=== PATIENT | female | born 1965 | race Caucasian/White ===

== ENCOUNTER 2016-07-13 10:24 | Emergency (ER) | payer MEDICAID ==
[~2016-07-13] VITALS: Ht 157.5 cm; Wt 65.3 kg
[~2016-07-13 10:24] MED LIST: ADVA250A INH; BISO5TAB5 PO; CLAR10CA3 PO; OMEP40CA2 PO; PAXI20TA PO; PRAV10TA PO; SPIRCAP INH; ZITHTAB PO
[2016-07-13 10:37] VITALS: BP 147/87; PULSE 92; RESP 18; TEMP 98.2; O2SAT 99
--- NOTE | 2016-07-13 11:10 | PD ---
HPI Chief Complaint: Musculoskeletal Complaint Time Seen by Provider: 11:08 Travel History International Travel<30 days: No Contact w/Intl Traveler<30days: No Traveled to known affect area: No History of Present Illness HPI 50-year-old female with PMH of oral cancer, status post radical neck dissection presents to the ED for evaluation of 2 month history of right-sided lower back pain, radiating into the buttocks and down the outside of the right leg. She denies numbness, tingling, weakness, limitations to range of motion, saddle anesthesia, dysuria, hematuria, increased urinary urgency, urinary or fecal incontinence. Patient states she has a history of sciatica and this pain is the same. She states she was prescribed muscle relaxers and anti- inflammatories by her previous primary care provider. She endorses allergies to Avelox, penicillin, tramadol. PFSH Past Medical History Cancer: Yes (TONGUE) Cardiovascular Problems: Yes Diminished Hearing: No Hypertension: Yes Respiratory: Yes (LEFT LUNG SX DUE TO ASPIRATION PNEUMONIA) Pancreatitis: Yes Pneumonia: Yes (D/T ASPIRATION ) Tetanus Vaccination: Unknown ?: Not Past Surgical History Cholecystectomy: Yes Hysterectomy: Yes Other Surgery: Yes (PARTIAL TONGUE REMOVAL) Social History Alcohol Use: No Tobacco Use: No (QUIT 2011) Substance Use: No Allergies-Medications (Allergen,Severity, Reaction): Coded Allergies: Avelox (Verified Allergy, Severe, Shortness of Breath, 07/13/16) Penicillin (Verified Allergy, Severe, SHORT OF BREATH, 07/13/16) Tramadol (Verified Allergy, Severe, SHORT OF BREATH, 07/13/16) Reported Meds & Prescriptions Reported Meds & Active Scripts Active Robaxin (Methocarbamol) 750 Mg Tab 750 Mg PO QID Ibuprofen 600 Mg Tab 600 Mg PO Q8HR Reported Pravastatin 10 Mg Tab 10 Mg PO HS Bisoprolol (Bisoprolol Fumarate) 5 Mg Tab 2.5 Mg PO DAILY Claritin (Loratadine) 10 Mg Cap 10 Mg PO DAILY Advair Diskus Inh (Fluticasone-Salmeterol Inh) 250-50 Mcg/Blist Aer 1 Puff INH BID Rinse mouth after use. Spiriva Handihaler (Tiotropium Inh) 18 Mcg Cap 18 Mcg INH DAILY 1 capsule = 18 mcg Omeprazole 40 Mg Cap 40 Mg PO DAILY Paxil (Paroxetine HCl) 20 Mg Tab 20 Mg PO DAILY Review of Systems Except as stated in HPI: all other systems reviewed are Neg Physical Exam Narrative GENERAL: Well-nourished, well-developed white female in no acute distress. SKIN: Warm and dry. HEAD: Minor deformities of the left-sided jaw and neck secondary to radical neck dissection. EYES: No scleral icterus. No injection or drainage. NECK: Supple, trachea midline. No JVD or lymphadenopathy. CARDIOVASCULAR: Regular rate and rhythm without murmurs, gallops, or rubs. RESPIRATORY: Breath sounds equal bilaterally. No accessory muscle use. GASTROINTESTINAL: Abdomen soft, non-tender, nondistended. MUSCULOSKELETAL: No cyanosis, or edema. Straight leg raise positive on the right. NEUROLOGICAL: Awake and alert. Cranial nerves II through XII intact. Motor and sensory grossly within normal limits. 5/5 muscle strength to plantarflexion, dorsiflexion, knee flexion and hip flexion. Slurred speech 2/to radical neck dissection. BACK: No obvious deformity. No CVA tenderness. Mild midline tenderness to palpation of the lumbar area, including the right-sided paraspinal musculature, right buttocks, right anterior lateral hip. Data Data Last Documented VS Vital Signs Date Time Temp Pulse Resp B/P Pulse Ox O2 Delivery O2 Flow Rate FiO2 07/13/16 10:37 98.2 92 18 147/87 99 Orders Ketorolac Inj (Toradol Inj) (07/13/16 11:30) MDM Medical Decision Making Medical Screen Exam Complete: Yes Emergency Medical Condition: Yes Differential Diagnosis Low back pain versus radiculopathy versus sciatica versus other Narrative Course 50-year-old female with PMH of oral cancer, status post radical neck dissection presents to the ED for evaluation of 2 month history of right-sided lower back pain, radiating into the buttocks and down the outside of the right leg. She denies numbness, tingling, weakness, limitations to range of motion, saddle anesthesia, dysuria, hematuria, increased urinary urgency, urinary or fecal incontinence. Patient states she has a history of sciatica and this pain is the same. Vitals reviewed. Physical exam reveals a well-appearing white female in no acute distress. Mild midline lumbar tenderness to palpation, worse in the right paraspinal musculature, buttocks and right hip. Strength 5/ 5 in bilateral lower extremities. Straight leg raise elicits pain on the right. Signs and symptoms consistent with sciatica. Patient was administered IM Toradol. She was prescribed a short course of anti-inflammatories and muscle relaxers. She is instructed to return to normal, gentle activity as tolerated, follow-up with primary care provider. She indicated understanding of the instructions and is amenable to plan of care. This patient is stable and discharged home. Diagnosis Primary Impression: Right-sided low back pain with sciatica Qualified Code: M54.41 - Chronic right-sided low back pain with right-sided sciatica Referrals: Primary Care Physician Patient Instructions: General Instructions, Sciatica (ED) Additional Instructions: Rest, hydrate. A mixture of rest and activity is best for back pain. Resume normal, gentle activities as tolerated. No strenuous physical activities for the next few days Begin taking ibuprofen as prescribed TOMORROW. Take ibuprofen and Robaxin as prescribed. Do not drive while taking Robaxin. Applying ice or heat to areas with sore muscles may help to improve your patient. Do not apply ice/ heat for longer than 20 m/h. Gentle massage and gentle stretching of sore areas may also help to improve your symptoms. Follow-up with your primary care provider this week Return to the ED for any urgent or emergent medical condition. Med/Other Pt SpecificInfo: Prescription(s) given Scripts Methocarbamol (Robaxin)750 Mg [id number] Mg PO QID #12 TAB Ref 0 Prov:Janeth Alanis DO 07/13/16 Ibuprofen 600 Mg [id number] Mg PO Q8HR #15 TAB Ref 0 Prov:Janeth Alanis DO 07/13/16 Disposition: 01 DISCHARGE HOME Condition: Stable Susan Lazaro Jul 13, 2016 11:10
[2016-07-13] MEDS ORDERED: IBUP-232 PO (11:24)
[2016-07-13] MEDS ORDERED: ROBA750T PO (11:25)
[2016-07-13] MEDS ORDERED: KETOROLAC TROMETHAMINE 60 MG/2 ML (IM) VIAL IM ONE (11:30)
[2016-07-31] MEDS ORDERED: SPIRCAP INH (10:49)
[2016-07-31] MEDS ORDERED: CLON0.5T PO (10:49)
[2016-07-31] MEDS ORDERED: VENTAER INH (10:49)
[2016-07-31] MEDS ORDERED: PRAM0.5T PO (10:49)
[2016-07-31] MEDS ORDERED: CYCL1TAB29 PO (12:05)
[2016-07-31] MEDS ORDERED: PROT40TA PO (12:05)
[2016-08-21] MEDS ORDERED: VENTAER INH (08:31)
[2016-08-21] MEDS ORDERED: PRAM0.5T PO (08:31)
[2016-08-21] MEDS ORDERED: ADVA250A INH (08:31)
[2016-08-21] MEDS ORDERED: SPIRCAP INH (08:31)
[2016-08-21] MEDS ORDERED: CLAR10CA3 PO (08:31)
[2016-08-21] MEDS ORDERED: PRAV10TA PO (08:50)
[2016-10-03] MEDS ORDERED: PROT40TA PO (09:18)
[2016-10-03] MEDS ORDERED: PRAM0.5T PO (09:18)
[2016-10-03] MEDS ORDERED: CYCL1TAB29 PO (09:18)
== END 2016-07-13 11:38 | disposition home or self-care (01) ==
LOC: PHEFT 10:24
DX: M54.41 Lumbago with sciatica, right side (principal); Z87.891 Personal history of nicotine dependence
CPT/HCPCS: 96372; 99283; J1885

== ENCOUNTER 2016-12-18 09:23 | Emergency (ER) | payer MEDICAID ==
[~2016-12-18] VITALS: Ht 157.5 cm; Wt 55.7 kg
[~2016-12-18 09:23] MED LIST changes: +CLON0.5T PO; +CYCL1TAB29 PO; +IBUP-232 PO; -PAXI20TA PO; +PRAM0.5T PO; +PROT40TA PO; +VENTAER INH; -ZITHTAB PO
[2016-12-18 09:28] VITALS: BP 109/67; PULSE 95; RESP 18; TEMP 97.7; O2SAT 99
[2016-12-18] MEDS ORDERED: SODIUM CHLORIDE 0.9% FLUSH 10 ML FLUSH IVF PRN (10:00)
[2016-12-18 10:20] LABS: AUTOMATED NEUTROPHIL # 9.2 TH/MM3 (1.8-7.7); BASOPHIL # 0.3 TH/MM3 (0-0.2); BASOPHIL % 2.5 % (0.0-2.0); EOSINOPHIL # 0.1 TH/MM3 (0-0.4); EOSINOPHIL % 0.7 % (0.0-4.0); HEMATOCRIT 33.7 % (35.0-46.0); HEMO FLAGS DIFF FINAL; LYMPH % 16.3 % (9.0-44.0); MEAN CELL VOLUME 86.8 FL (80.0-100.0); MEAN CORPUSCULAR HEMOGLOBIN 28.9 PG (27.0-34.0); MEAN CORPUSCULAR HGB CONC 33.3 % (32.0-36.0); MONO % 3.1 % (0.0-8.0); NEUT % 77.4 % (16.0-70.0); PLATELET COUNT 436 TH/MM3 (150-450); RED BLOOD COUNT 3.89 MIL/MM3 (4.00-5.30); RED CELL DISTRIBUTION WIDTH 14.2 % (11.6-17.2)
--- NOTE | 2016-12-18 10:21 | PD ---
HPI Chief Complaint: Cold / Flu Symptoms Time Seen by Provider: 09:30 Travel History International Travel<30 days: No Contact w/Intl Traveler<30days: No Traveled to known affect area: No History of Present Illness HPI 51yo F with PMH of tongue CA s/p resection and chemo free now presents to the ED to make sure she does not have pneumonia. Pt states she has been coughing for 1 month now with nasal congestion. However, started feeling sharp pain with inspiration diffusely in mid chest area. States she feels sob walking just 1 block which is new. Tactile fever today. Denies any chest pain, sob, n/v, abdominal pain, focal weakness or numbness. PFSH Past Medical History Cancer: Yes (TONGUE) Cardiovascular Problems: Yes Diminished Hearing: No Hypertension: Yes Respiratory: Yes (LEFT LUNG SX DUE TO ASPIRATION PNEUMONIA) Pancreatitis: Yes Pneumonia: Yes (D/T ASPIRATION ) Influenza Vaccination: No ?: Not Past Surgical History Cholecystectomy: Yes Hysterectomy: Yes Other Surgery: Yes (PARTIAL TONGUE REMOVAL) Social History Alcohol Use: No Tobacco Use: No (QUIT 2011) Substance Use: No Allergies-Medications (Allergen,Severity, Reaction): Coded Allergies: Avelox (Verified Allergy, Severe, Shortness of Breath, 12/18/16) Penicillin (Verified Allergy, Severe, SHORT OF BREATH, 12/18/16) Tramadol (Verified Allergy, Severe, SHORT OF BREATH, 12/18/16) Reported Meds & Prescriptions Reported Meds & Active Scripts Active Zithromax Z-Hung (Azithromycin) 250 Mg Dspk 250 Mg PO DIRECTED 500 MG (2 tabs) day 1, then 1 tab days 2-5. Ventolin Hfa 18 GM Inh (Albuterol Sulfate) 90 Mcg/Act Aer 2 Puff INH Q4H PRN Pramipexole (Pramipexole Dihydrochloride) 0.5 Mg Tab 1 Mg PO HS Protonix (Pantoprazole Sodium) 40 Mg Tab 40 Mg PO DAILY Pravastatin 10 Mg Tab 10 Mg PO HS Claritin (Loratadine) 10 Mg Cap 10 Mg PO DAILY Ventolin Hfa 18 GM Inh (Albuterol Sulfate) 90 Mcg/Act Aer 2 Puff INH Q4-6H PRN Advair Diskus Inh (Fluticasone-Salmeterol Inh) 250-50 Mcg/Blist Aer 1 Puff INH BID Rinse mouth after use. Spiriva Handihaler (Tiotropium Inh) 18 Mcg Cap 18 Mcg INH DAILY 1 capsule = 18 mcg Ibuprofen 600 Mg Tab 600 Mg PO Q8HR Reported Clonazepam 0.5 Mg Tab 0.5 Mg PO QID Bisoprolol (Bisoprolol Fumarate) 5 Mg Tab 2.5 Mg PO DAILY Review of Systems Except as stated in HPI: all other systems reviewed are Neg Physical Exam Narrative GENERAL: 51yo F not in distress. SKIN: Focused skin assessment warm/dry. HEAD: Atraumatic. Normocephalic. CARDIOVASCULAR: Regular rate and rhythm. No murmur appreciated. RESPIRATORY: No accessory muscle use. Clear to auscultation. Breath sounds equal bilaterally. GASTROINTESTINAL: Abdomen soft, non-tender, nondistended. MUSCULOSKELETAL: No obvious deformities. No clubbing. No cyanosis. No edema. NEUROLOGICAL: Awake and alert. No obvious cranial nerve deficits. Motor grossly within normal limits. Abnormal speech secondary to tongue surgery. PSYCHIATRIC: Appropriate mood and affect; insight and judgment normal. Data Data Last Documented VS Vital Signs Date Time Temp Pulse Resp B/P Pulse Ox O2 Delivery O2 Flow Rate FiO2 12/18/16 10:23 98 Room Air 12/18/16 10:23 90 18 104/78 12/18/16 09:28 97.7 Orders Complete Blood Count With Diff (12/18/16 09:57) Basic Metabolic Panel (Bmp) (12/18/16 09:57) B-Type Natriuretic Peptide (12/18/16 09:57) D-Dimer (12/18/16 09:57) Act Partial Throm Time (Ptt) (12/18/16 09:57) Prothrombin Time / Inr (Pt) (12/18/16 09:57) Troponin I (12/18/16 09:57) Iv Access Insert/Monitor (12/18/16 09:57) Electrocardiogram (12/18/16 09:57) Ecg Monitoring (12/18/16 09:57) Oximetry (12/18/16 09:57) Oxygen Administration (12/18/16 09:57) Chest, Single Ap (12/18/16 09:57) Sodium Chloride 0.9% Flush (Ns Flush) (12/18/16 10:00) Guaifen-Cod 200-20 Mg/10ml Liq (Robituss (12/18/16 11:15) Ibuprofen (Motrin) (12/18/16 11:15) Albuterol-Ipratropium Neb (Duoneb Neb) (12/18/16 11:15) Labs Laboratory Tests Test 12/18/16 10:15 White Blood Count 12.0 TH/MM3 Red Blood Count 3.89 MIL/MM3 Hemoglobin 11.2 GM/DL Hematocrit 33.7 % Mean Corpuscular Volume 86.8 FL Mean Corpuscular Hemoglobin 28.9 PG Mean Corpuscular Hemoglobin 33.3 % Concent Red Cell Distribution Width 14.2 % Platelet Count 436 TH/MM3 Mean Platelet Volume 5.7 FL Neutrophils (%) (Auto) 77.4 % Lymphocytes (%) (Auto) 16.3 % Monocytes (%) (Auto) 3.1 % Eosinophils (%) (Auto) 0.7 % Basophils (%) (Auto) 2.5 % Neutrophils # (Auto) 9.2 TH/MM3 Lymphocytes # (Auto) 2.0 TH/MM3 Monocytes # (Auto) 0.4 TH/MM3 Eosinophils # (Auto) 0.1 TH/MM3 Basophils # (Auto) 0.3 TH/MM3 CBC Comment DIFF FINAL Differential Comment Prothrombin Time 11.2 SEC Prothromb Time International 1.0 RATIO Ratio Activated Partial 35.9 SEC Thromboplast Time D-Dimer Quantitative (PE/DVT) 0.45 MG/L FEU Sodium Level 129 MEQ/L Potassium Level 3.9 MEQ/L Chloride Level 97 MEQ/L Carbon Dioxide Level 23.2 MEQ/L Anion Gap 9 MEQ/L Blood Urea Nitrogen 16 MG/DL Creatinine 0.68 MG/DL Estimat Glomerular Filtration 91 ML/MIN Rate Random Glucose 78 MG/DL Calcium Level 8.8 MG/DL Troponin I LESS THAN 0.02 NG/ML B-Type Natriuretic Peptide 20 PG/ML MDM Medical Decision Making Medical Screen Exam Complete: Yes Emergency Medical Condition: Yes Interpretation(s) EKG: NSR 88bpm. Normal axis. No ST segment elevation or depression. Differential Diagnosis URI vs. bronchitis vs. Pneumonia vs. PE vs. ACS Narrative Course 51yo F with cough for 1 month here with sharp pain diffusely on chest with inspiration and coughing. Pt is well appearing and saturating at 100% on RA. Pt is worry about pneumonia because she had tongue cancer and said she gets that easily. Symptoms more consistent with a URI vs. bronchitis. Labs reviewed , WBC 12. Mild hyponatremia at 129, no prior to compare to. Pt states her sodium is always low. Troponin negative. I do not believe the chest pain is cardiac. BNP 20. PTT mildly elevated. D-dimer negative at 0.45. CXR showed no acute disease. Pt given guaifen-codene, ibuprofen and duoneb and reevaluated at bedside. States she feels better and denies any chest pain or sob now. States her cough also improved. She is well appearing and wants to go home. Return precautions given. Diagnosis Primary Impression: URI (upper respiratory infection) Qualified Code: J06.9 - Upper respiratory tract infection, unspecified type Patient Instructions: General Instructions Departure Forms: Tests/Procedures Additional Instructions: Please follow up with your PMD in 3-7 days. Return to the ED if symptoms worsen. Med/Other Pt SpecificInfo: Prescription(s) given Scripts Azithromycin (Zithromax Z-Hung)250 Mg Ptxm080 Mg PO DIRECTED #1 DSPK Ref 0 500 MG (2 tabs) day 1, then 1 tab days 2-5. Prov:Janeth Alanis DO 12/18/16 Albuterol 18 GM Inh (Ventolin Hfa 18 GM Inh)90 Mcg/Act Aer2 Puff INH Q4H PRN ( SHORTNESS OF BREATH) #1 INHALER Ref 0 Prov:Janeth Alanis DO 12/18/16 Disposition: 01 DISCHARGE HOME Condition: Stable Janeth Alanis DO Dec 18, 2016 10:21
[2016-12-18 10:23] VITALS: BP 104/78; PULSE 90; RESP 18; O2SAT 98
[2016-12-18 10:30] LABS: CHLORIDE 97 MEQ/L (98-107); POTASSIUM 3.9 MEQ/L (3.5-5.1); SODIUM (NA) 129 MEQ/L (136-145)
[2016-12-18 10:32] LABS: ANION GAP 9 MEQ/L (5-15); BICARBONATE 23.2 MEQ/L (21.0-32.0)
[2016-12-18 10:33] LABS: BLOOD UREA NITROGEN 16 MG/DL (7-18)
[2016-12-18 10:36] LABS: APTT (PATIENT) 35.9 SEC (24.3-30.1); GLOMERULAR FILTRATION RATE 91 ML/MIN (>89); PROTHROMBIN TIME - PATIENT 11.2 SEC (9.8-11.6)
--- NOTE | 2016-12-18 11:08 | RADRPT ---
EXAM DATE/TIME: 12/18/2016 10:03 [facility] COMPARISON: CHEST SINGLE AP, May 10, 2016, 8:29. INDICATIONS : Short of breath MEDICAL HISTORY : Carcinoma, oral cavity. Hypertension Aspiration pneumonia SURGICAL HISTORY : Left lung surgery post pneumonia ENCOUNTER: Initial ACUITY: 1 day PAIN SCORE: 0/10 LOCATION: Bilateral chest FINDINGS: A single view of the chest demonstrates the lungs to be symmetrically aerated without evidence of mas s, infiltrate or effusion. The cardiomediastinal contours are unremarkable. Surgical clips are seen on the left. Osseous structures are intact. CONCLUSION: No acute disease. Sawyer Hernandez MD FACR on December 18, 2016 at 11:06 Board Certified Radiologist. This report was verified electronically.
[2016-12-18] MEDS ORDERED: RESP: ALBUTEROL 2.5 MG/IPRATROPIUM 0.5 MG NEB (SCH) INH ONE (11:15)
[2016-12-18] MEDS ORDERED: IBUPROFEN 400 MG TAB PO ONE (11:15)
[2016-12-18] MEDS ORDERED: guaiFENesin/CODEINE SYRUP 200 MG/20 MG/10 ML CUP PO ONE (11:15)
[2016-12-18] MEDS ORDERED: ZITHTAB PO (12:16)
[2016-12-18] MEDS ORDERED: VENTAER INH (12:16)
[2016-12-18 12:19] VITALS: BP 105/58; PULSE 88; RESP 18; O2SAT 99
--- NOTE | 2016-12-18 16:16 | EKG ---
Date Performed: 12/18/2016 Time Performed: 10:15:09 PTAGE: 51 years EKG: Sinus rhythm NORMAL ECG NO PREVIOUS TRACING DOCTOR: Moose Leija Interpretating Date/Time 12/18/2016 16:14:28
[2016-12-21] MEDS ORDERED: SPIRCAP INH (11:42)
[2016-12-21] MEDS ORDERED: ADVA250A INH (11:42)
== END 2016-12-18 12:39 | disposition home or self-care (01) ==
LOC: PHED 09:23
DX: J06.9 Acute upper respiratory infection, unspecified (principal); R06.02 Shortness of breath; I10 Essential (primary) hypertension; Z85.810 Personal history of malignant neoplasm of tongue; Z87.891 Personal history of nicotine dependence
CPT/HCPCS: 71010; 80048; 83880; 84484; 85025; 85379; 85610; 85730; 93005; 94664

== ENCOUNTER 2017-01-25 15:21 | Emergency (ER) | payer MEDICAID ==
[~2017-01-25 15:21] MED LIST changes: -CYCL1TAB29 PO; -OMEP40CA2 PO; +ZITHTAB PO
[2017-01-25 15:24] VITALS: BP 132/77; PULSE 105; RESP 20; TEMP 97.8; O2SAT 97
--- NOTE | 2017-01-25 16:48 | PD ---
HPI Chief Complaint: ENT Complaint Time Seen by Provider: 16:24 Travel History International Travel<30 days: No Contact w/Intl Traveler<30days: No Traveled to known affect area: No History of Present Illness HPI 51yo F with PMH of tongue cancer s/p resection and cancer free for 8 years was sent by her ENT Dr. Dawn for further evaluation of dysphagia and obtain CT soft tissue neck. Pt has not been able to eat solid food for 3 months and was evaluated by ENT on 01/16/17 and had barium swallow done what showed that there was blockage and recommended CT soft tissue neck. I discussed with supervisor contact and service clerks physician Dr. Melchor and pt never followed up and called and since they were concern about the PO intake, pt was told to come to the ED. Able to drink liquids. Denies any fever, chest pain, sob, n/v, abdominal pain. States she would try to eat and food would go to her mid throat and she would vomit. Pt was not able to tolerate the scope and vomited every time they tried to look. PFSH Past Medical History Cancer: Yes (TONGUE) Cardiovascular Problems: Yes Diminished Hearing: No Hypertension: Yes Respiratory: Yes (LEFT LUNG SX DUE TO ASPIRATION PNEUMONIA) Pancreatitis: Yes Pneumonia: Yes (D/T ASPIRATION ) ?: Not Past Surgical History Cholecystectomy: Yes Hysterectomy: Yes Other Surgery: Yes (PARTIAL TONGUE REMOVAL) Social History Alcohol Use: No Tobacco Use: No (QUIT 2011) Substance Use: No Allergies-Medications (Allergen,Severity, Reaction): Coded Allergies: moxifloxacin (Unverified Allergy, Severe, Shortness of Breath, 12/26/16) penicillin G (Unverified Allergy, Severe, SHORT OF BREATH, 12/26/16) tramadol (Unverified Allergy, Severe, SHORT OF BREATH, 12/26/16) Reported Meds & Prescriptions Reported Meds & Active Scripts Active Spiriva Handihaler (Tiotropium Inh) 18 Mcg Cap 18 Mcg INH DAILY 1 capsule = 18 mcg Pramipexole (Pramipexole Dihydrochloride) 0.5 Mg Tab 1 Mg PO HS Protonix (Pantoprazole Sodium) 40 Mg Tab 40 Mg PO DAILY Review of Systems Except as stated in HPI: all other systems reviewed are Neg Physical Exam Narrative GENERAL: 51yo F not in distress. SKIN: Focused skin assessment warm/dry. HEAD: Atraumatic. Normocephalic. EYES: Pupils equal and round. No scleral icterus. No injection or drainage. ENT: No nasal bleeding or discharge. Mucous membranes pink and moist. Throat: Uvula midline. Patent airway. Left side of tongue resected. NECK: Trachea midline. No JVD. CARDIOVASCULAR: Regular rate and rhythm. No murmur appreciated. RESPIRATORY: No accessory muscle use. Clear to auscultation. Breath sounds equal bilaterally. GASTROINTESTINAL: Abdomen soft, non-tender, nondistended. MUSCULOSKELETAL: No obvious deformities. No clubbing. No cyanosis. No edema. NEUROLOGICAL: Awake and alert. No obvious cranial nerve deficits. Motor grossly within normal limits. Normal speech. PSYCHIATRIC: Appropriate mood and affect; insight and judgment normal. Data Data Last Documented VS Vital Signs Date Time Temp Pulse Resp B/P (MAP) Pulse Ox O2 Delivery O2 Flow Rate FiO2 01/25/17 15:24 97.8 105 20 132/77 (95) 97 Orders Orders Complete Blood Count With Diff (01/25/17 16:36) Basic Metabolic Panel (Bmp) (01/25/17 16:36) Ct Soft Tiss Neck W Iv Cont (01/25/17 ) Iohexol 350 Inj (Omnipaque 350 Inj) (01/25/17 17:55) Labs Laboratory Tests Test 01/25/17 16:55 White Blood Count 6.8 TH/MM3 Red Blood Count 4.12 MIL/MM3 Hemoglobin 12.2 GM/DL Hematocrit 36.6 % Mean Corpuscular Volume 88.7 FL Mean Corpuscular Hemoglobin 29.6 PG Mean Corpuscular Hemoglobin Concent 33.4 % Red Cell Distribution Width 14.6 % Platelet Count 366 TH/MM3 Mean Platelet Volume 6.5 FL Neutrophils (%) (Auto) 54.5 % Lymphocytes (%) (Auto) 37.2 % Monocytes (%) (Auto) 5.1 % Eosinophils (%) (Auto) 2.0 % Basophils (%) (Auto) 1.2 % Neutrophils # (Auto) 3.8 TH/MM3 Lymphocytes # (Auto) 2.5 TH/MM3 Monocytes # (Auto) 0.3 TH/MM3 Eosinophils # (Auto) 0.1 TH/MM3 Basophils # (Auto) 0.1 TH/MM3 CBC Comment DIFF FINAL Differential Comment Blood Urea Nitrogen 7 MG/DL Creatinine 0.87 MG/DL Random Glucose 72 MG/DL Calcium Level 8.8 MG/DL Sodium Level 132 MEQ/L Potassium Level 3.5 MEQ/L Chloride Level 97 MEQ/L Carbon Dioxide Level 26.2 MEQ/L Anion Gap 9 MEQ/L Estimat Glomerular Filtration Rate 68 ML/MIN MDM Medical Decision Making Medical Screen Exam Complete: Yes Emergency Medical Condition: Yes Interpretation(s) Laboratory Tests Test 01/25/17 16:55 White Blood Count 6.8 TH/MM3 (4.0-11.0) Red Blood Count 4.12 MIL/MM3 (4.00-5.30) Hemoglobin 12.2 GM/DL (11.6-15.3) Hematocrit 36.6 % (35.0-46.0) Mean Corpuscular Volume 88.7 FL (80.0-100.0) Mean Corpuscular Hemoglobin 29.6 PG (27.0-34.0) Mean Corpuscular Hemoglobin Concent 33.4 % (32.0-36.0) Red Cell Distribution Width 14.6 % (11.6-17.2) Platelet Count 366 TH/MM3 (150-450) Mean Platelet Volume 6.5 FL (7.0-11.0) Neutrophils (%) (Auto) 54.5 % (16.0-70.0) Lymphocytes (%) (Auto) 37.2 % (9.0-44.0) Monocytes (%) (Auto) 5.1 % (0.0-8.0) Eosinophils (%) (Auto) 2.0 % (0.0-4.0) Basophils (%) (Auto) 1.2 % (0.0-2.0) Neutrophils # (Auto) 3.8 TH/MM3 (1.8-7.7) Lymphocytes # (Auto) 2.5 TH/MM3 (1.0-4.8) Monocytes # (Auto) 0.3 TH/MM3 (0-0.9) Eosinophils # (Auto) 0.1 TH/MM3 (0-0.4) Basophils # (Auto) 0.1 TH/MM3 (0-0.2) CBC Comment DIFF FINAL Differential Comment Blood Urea Nitrogen 7 MG/DL (7-18) Creatinine 0.87 MG/DL (0.50-1.00) Random Glucose 72 MG/DL (74-106) Calcium Level 8.8 MG/DL (8.5-10.1) Sodium Level 132 MEQ/L (136-145) Potassium Level 3.5 MEQ/L (3.5-5.1) Chloride Level 97 MEQ/L (98-107) Carbon Dioxide Level 26.2 MEQ/L (21.0-32.0) Anion Gap 9 MEQ/L (5-15) Estimat Glomerular Filtration Rate 68 ML/MIN (>89) Last Impressions Neck CT 01/25/17 0000 Signed Impressions: Service Date/Time: January 17:47 - CONCLUSION: 1. Lobulated mass of the tongue. Please see above. 2. Posterior pharynx and hypopharynx are within normal limits. No obstructions to swallowing are demonstrated. The esophagus does appear somewhat patulous. 3. No pathologic appearing lymphadenopathy. I believe a previous jugulodigastric lymph node dissection on the left. Carlos Meyer MD Differential Diagnosis Neck mass vs. achalasia vs. esophageal stricture Narrative Course 51yo F with history of tongue CA s/p resection here with difficulty eating solid food. Labs reviewed, no leukocytosis. BMP showed mild hyponatremia at 132. Glucose mildly decreased at 72. Pt given juice and tolerating PO liquids. CT soft tissue neck showed lobulated mass of tongue. Posterior pharynx and hypopharynx are within normal limits. No obstruction to swallowing are demonstrated. Esophagus does appear somewhat patulous. Pt is well appearing and has an ENT follow up. Since pt is tolerating PO and no mass seen on CT, will have pt follow up with ENT and possible GI as an outpatient. Pt given a copy of the CT results. Return precautions given. Diagnosis Primary Impression: Dysphagia Qualified Codes: R13.10 - Dysphagia, unspecified Referrals: Ed Berg MD call for appointment Dysphagia Patient Instructions: General Instructions Departure Forms: Tests/Procedures Additional Instructions: Please follow up with your ENT physician or GI as an outpatient for further evaluation of your dysphagia. Return to the ED if symptoms worsen. Med/Other Pt SpecificInfo: No Change to Meds Disposition: 01 DISCHARGE HOME Condition: Stable Janeth Alanis DO Jan 25, 2017 16:48
[2017-01-25 17:16] LABS: AUTOMATED NEUTROPHIL # 3.8 TH/MM3 (1.8-7.7); BASOPHIL # 0.1 TH/MM3 (0-0.2); BASOPHIL % 1.2 % (0.0-2.0); EOSINOPHIL # 0.1 TH/MM3 (0-0.4); HEMATOCRIT 36.6 % (35.0-46.0); HEMO FLAGS DIFF FINAL; LYMPH % 37.2 % (9.0-44.0); LYMPHOCYTE # 2.5 TH/MM3 (1.0-4.8); MEAN CELL VOLUME 88.7 FL (80.0-100.0); MEAN CORPUSCULAR HEMOGLOBIN 29.6 PG (27.0-34.0); MEAN CORPUSCULAR HGB CONC 33.4 % (32.0-36.0); MONO % 5.1 % (0.0-8.0); NEUT % 54.5 % (16.0-70.0); PLATELET COUNT 366 TH/MM3 (150-450); RED BLOOD COUNT 4.12 MIL/MM3 (4.00-5.30); RED CELL DISTRIBUTION WIDTH 14.6 % (11.6-17.2); WHITE BLOOD COUNT 6.8 TH/MM3 (4.0-11.0)
[2017-01-25 17:34] LABS: POTASSIUM 3.5 MEQ/L (3.5-5.1)
[2017-01-25 17:37] LABS: BICARBONATE 26.2 MEQ/L (21.0-32.0)
[2017-01-25] MEDS ORDERED: IOHEXOL 350 MG/ML 10 ML VIAL (for RAD DIAG) IVCONTRAST ONE (17:55)
--- NOTE | 2017-01-25 18:13 | RADRPT ---
EXAM DATE/TIME: 01/25/2017 17:47 [facility] COMPARISON: No previous studies available for comparison. INDICATIONS : Unable to eat solid foods x 3 months. Evaluate for mass. IV CONTRAST: 60 cc Omnipaque 350 (iohexol) IV RADIATION DOSE: 10.17 CTDIvol (mGy) MEDICAL HISTORY : Carcinoma, tongue. Seizures. Hypertension. SURGICAL HISTORY : Cholecystectomy. Hysterectomy.Tongue cancer resection. Tracheostomy. ENCOUNTER: Initial ACUITY: 3 months PAIN SCALE: 0/10 LOCATION: neck TECHNIQUE: Volumetric scanning of the neck was performed. Using automated exposure control and adjustment of th e mA and/or kV according to patient size, radiation dose was kept as low as reasonably achievable to obtain optimal diagnostic quality images. DICOM format image data is available electronically for r eview and comparison. FINDINGS: NASOPHARYNX: The nasopharyngeal airway has a normal configuration. No mucosal thickening or mass is seen. OROPHARYNX: Apparent previous partial resection of the tongue. There is a lobulated mass along the superior von n of the tongue that measures approximately 2.1 x 3.9 cm in size. Exactly what portion of this is huma or and residual tongue is uncertain but please correlate with direct inspection. LARYNX: The supraglottic, glottic, and infraglottic structures are intact. PARAPHARYNGEAL: The parapharyngeal space is intact. SALIVARY GLANDS: The parotid and submandibular glands are intact. LYMPH NODES: No enlarged or necrotic-appearing nodes. Apparent previous left neck dissection. THYROID: Homogeneous enhancement without evidence of nodule. BONES: Unremarkable. CONCLUSION: 1. Lobulated mass of the tongue. Please see above. 2. Posterior pharynx and hypopharynx are within normal limits. No obstructions to swallowing are demo nstrated. The esophagus does appear somewhat patulous. 3. No pathologic appearing lymphadenopathy. I believe a previous jugulodigastric lymph node dissectio n on the left. Carlos Meyer MD on January 25, 2017 at 18:08 Board Certified Radiologist. This report was verified electronically.
[2017-01-25 19:00] VITALS: BP 115/82
[2017-02-19] MEDS ORDERED: INFL1INJ55 I-DERMAL (09:03)
== END 2017-01-25 19:16 | disposition home or self-care (01) ==
LOC: PHED 15:21
DX: R13.10 Dysphagia, unspecified (principal); Z85.810 Personal history of malignant neoplasm of tongue; Z87.891 Personal history of nicotine dependence
CPT/HCPCS: 70491; 80048; 85025; 99284; Q9967

== ENCOUNTER 2017-06-05 18:00 | Emergency (ER) | payer MEDICAID ==
[~2017-06-05] VITALS: Ht 157.5 cm; Wt 47.7 kg
[~2017-06-05 18:00] MED LIST changes: -BISO5TAB5 PO; -CLAR10CA3 PO; -CLON0.5T PO; -IBUP-232 PO; +LORA-650 PO; +PANT40TA3 PO; -PRAV10TA PO; -PROT40TA PO; -VENTAER INH; -ZITHTAB PO
[2017-06-05 18:08] VITALS: BP 108/81; PULSE 93; RESP 16; TEMP 97.2; O2SAT 97
[2017-06-05] MEDS ORDERED: PRAM0.5T PO (19:52)
[2017-06-05] MEDS ORDERED: BISO5TAB5 PO (19:52)
[2017-06-05] MEDS ORDERED: ADVA250A INH (19:52)
--- NOTE | 2017-06-05 19:52 | PD ---
HPI . Shortness of breath and nausea Chief Complaint: Respiratory Symptoms Time Seen by Provider: 19:38 Travel History International Travel<30 days: No Contact w/Intl Traveler<30days: No Traveled to known affect area: No History of Present Illness HPI This patient presents with 2 complaints. It seems that her chief complaint is actually nausea secondary to GERD. She reports a long-standing history of GERD she states that she had been on Prilosec for GERD but that her insurance now will not pay for it. She states that the GERD causes nausea and inability to eat. Second complaint is shortness of breath. She reports that she is prone to aspiration pneumonia because of her history of lung cancer. Her shortness of breath is mild with no exacerbating or relieving factors. It has been present for at least 6 months. PFSH Past Medical History Cancer: Yes (TONGUE) Cardiovascular Problems: Yes Diminished Hearing: No Hypertension: Yes Respiratory: Yes (LEFT LUNG SX DUE TO ASPIRATION PNEUMONIA) Pancreatitis: Yes Pneumonia: Yes (D/T ASPIRATION ) Tetanus Vaccination: Unknown Influenza Vaccination: Yes ?: Unknown Past Surgical History Cholecystectomy: Yes Hysterectomy: Yes Other Surgery: Yes (PARTIAL TONGUE REMOVAL, HX CA TO TONGUE) Social History Alcohol Use: Yes (SOCIALLY) Tobacco Use: No (QUIT 2011) Substance Use: Yes (MJ) Allergies-Medications (Allergen,Severity, Reaction): Coded Allergies: moxifloxacin (Unverified Allergy, Severe, Shortness of Breath, 06/05/17) penicillin G (Unverified Allergy, Severe, SHORT OF BREATH, 06/05/17) tramadol (Unverified Allergy, Severe, SHORT OF BREATH, 06/05/17) Reported Meds & Prescriptions Reported Meds & Active Scripts Active Zofran (Ondansetron HCl) 4 Mg Tab 4 Mg PO Q6HR PRN Pantoprazole (Pantoprazole Sodium) 40 Mg Tab 40 Mg PO DAILY Advair Diskus Inh (Fluticasone-Salmeterol Inh) 250-50 Mcg/Blist Aer 1 Puff INH BID Rinse mouth after use. Allergy Relief (Loratadine) 10 Mg Tab 10 Mg PO DAILY Reported Advair Diskus Inh (Fluticasone-Salmeterol Inh) 250-50 Mcg/Blist Aer 1 Puff INH BID Rinse mouth after use. Pramipexole (Pramipexole Dihydrochloride) 0.5 Mg Tab 0.5 Mg PO HS Bisoprolol (Bisoprolol Fumarate) 5 Mg Tab 2.5 Mg PO DAILY Review of Systems Except as stated in HPI: all other systems reviewed are Neg General / Constitutional: No: Fever, Chills Respiratory: Positive: Shortness of Breath Gastrointestinal: Positive: Nausea, Loss of Appetite, Other (GERD) Physical Exam Narrative GENERAL: This is a small woman who is lying on the stretcher in no acute distress. She is a little bit difficult to understand because of her previous resection of her tongue cancer. SKIN: warm/dry. Good color and turgor. HEAD: Normocephalic. Atraumatic. EYES: Pupils equal and round. No scleral icterus. No injection or drainage. ENT: No nasal bleeding or discharge. Mucous membranes pink and moist. NECK: Trachea midline. Full range of motion without pain.. CARDIOVASCULAR: Regular rate and rhythm. Heart sounds normal. RESPIRATORY: No accessory muscle use. Clear to auscultation. Breath sounds equal bilaterally. She had some coarse expiratory wheezing which cleared with coughing. Respiratory rate is 16 and oxygen saturation are 97% on room air. GASTROINTESTINAL: Abdomen soft. Nontender. Bowel sounds present. Nondistended. MUSCULOSKELETAL: No obvious deformities. NEUROLOGICAL: Awake and alert. No obvious cranial nerve deficits. Motor grossly within normal limits. Normal speech. PSYCHIATRIC: Appropriate mood and affect; insight and judgment normal. Data Data Last Documented VS Vital Signs Date Time Temp Pulse Resp B/P (MAP) Pulse Ox O2 Delivery O2 Flow Rate FiO2 06/05/17 19:41 16 Room Air 06/05/17 18:08 97.2 93 108/81 (90) 97 Orders Orders Chest, Pa & Lat (06/05/17 19:42) Ondansetron Odt (Zofran Odt) (06/05/17 20:00) Pantoprazole (Protonix) (06/05/17 20:00) MDM Medical Decision Making Medical Screen Exam Complete: Yes Emergency Medical Condition: Yes Medical Record Reviewed: Yes (medical history is significant for tongue cancer status post resection, chemotherapy and radiation therapy. She has had previous aspiration pneumonia. She has also had previous gallstone pancreatitis.) Differential Diagnosis Differential diagnosis of dyspnea includes but is not limited to congestive heart failure, pneumonia, wheezing, pneumothorax, pulmonary embolism Differential diagnosis includes but is not limited to viral gastroenteritis, food poisoning, bowel obstruction, UTI Narrative Course This patient presents with 2 complaints. It seems to me that her chief complaint is GERD causing nausea which causes inability to eat. Her second concern is shortness of breath with a history of previous aspiration pneumonia. I have ordered Protonix and Zofran for her GERD and nausea. Chest x-ray is pending. The patient's respiratory rate is 16 and oxygen saturation 97% on room air. Chest x-ray shows no acute disease. The chest x-ray was independently viewed by me. The patient will be discharged home with prescriptions for Protonix and Zofran. Diagnosis Primary Impression: GERD (gastroesophageal reflux disease) Qualified Codes: K21.9 - Gastro-esophageal reflux disease without esophagitis Additional Impressions: Nausea Dyspnea Qualified Codes: R06.00 - Dyspnea, unspecified Patient Instructions: Gastroesophageal Reflux Disease (DC), General Instructions Med/Other Pt SpecificInfo: Prescription(s) given Scripts Ondansetron (Zofran) 4 Mg Tab 4 MG PO Q6HR Y for NAUSEA OR VOMITING, #30 TAB 0 Refills Prov: Aleah Esquivel MD 06/05/17 Pantoprazole (Pantoprazole) 40 Mg Tab 40 MG PO DAILY for Reflux, #30 TAB 0 Refills Prov: Aleah Esquivel MD 06/05/17 Disposition: 01 DISCHARGE HOME Condition: Stable Aleah Esquivel MD Jun 05, 2017 19:52
[2017-06-05] MEDS ORDERED: ONDANSETRON ODT 4 MG TAB PO ONE (20:00)
[2017-06-05] MEDS ORDERED: PANTOPRAZOLE SOD 20 MG DELAYED RELEASE TAB PO ONE (20:00)
[2017-06-05] MEDS ORDERED: PANT40TA3 PO (20:03)
[2017-06-05] MEDS ORDERED: ZOFR4TAB PO (20:03)
--- NOTE | 2017-06-05 21:09 | RADRPT ---
EXAM DATE/TIME: 06/05/2017 20:28 [facility] COMPARISON: No previous studies available for comparison. INDICATIONS : Short of breath. MEDICAL HISTORY : Carcinoma, tongue. Seizures. Hypertension. SURGICAL HISTORY : Cholecystectomy. Hysterectomy.Tongue cancer resection. Tracheostomy. ENCOUNTER: Initial ACUITY: 4 - 6 months PAIN SCORE: 0/10 LOCATION: Bilateral chest FINDINGS: PA and lateral views of the chest demonstrate the lungs to be symmetrically aerated without evidence of mass, infiltrate or effusion. The cardiomediastinal contours are unremarkable. Osseous structure s are intact. CONCLUSION: 1. No active disease. Mild scarring at the bases. Shayan Garrett MD on June 05, 2017 at 21:06 Board Certified Radiologist. This report was verified electronically.
== END 2017-06-05 21:27 | disposition home or self-care (01) ==
LOC: PHED 18:00 → PHEFT 21:27
DX: K21.9 Gastro-esophageal reflux disease without esophagitis (principal); I10 Essential (primary) hypertension; Z87.891 Personal history of nicotine dependence
CPT/HCPCS: 71046; 99284

== ENCOUNTER → 2017-10-25 | Outpatient (CLI) | payer MEDICAID ==
[~2017-10-25] MED LIST changes: +BISO5TAB5 PO; -SPIRCAP INH; +ZOFR4TAB PO
--- NOTE | 2017-10-25 10:35 | RADRPT ---
EXAM DATE: 10/25/2017 10:27 AM EDT AGE/SEX: 52 years / Female INDICATIONS: Dysphagia. CLINICAL DATA: This is the patient's initial encounter. Patient reports that signs and symptoms have been present for 2 weeks and indicates a pain score of 0/10. MEDICAL/SURGICAL HISTORY: . Carcinoma, tongue. Seizures. Hypertension. . Tongue cancer resecti on. Tracheostomy. COMPARISON: No prior exams available for comparison. FLUORO TIME: 4.4 IMAGE COUNT: 0 FINDINGS: A modified barium swallow was performed with speech pathology. Patient was given a variety of liquids to swallow. For a full detailed report, see report by the speech pathologist. Significant swallowing dysfunction is identified with poor retraction of the tongue in the oral phase , early spillage into the vallecula and piriform sinuses, poor elevation of the hypopharyngeal struct ures and deep vestibular penetration. Risk for aspiration with thin liquids is suspected. Laryngeal tracheal aspiration was not identified. CONCLUSION: Dysfunctional swallowing mechanism as described. The vestibular penetration without gross aspiration. Electronically signed by: Cliff Zimmerman MD 10/25/2017 10:34 AM EDT
== END ==
LOC: HRAD 09:37
PROVIDERS: ATTEND Family Medicine
DX: R13.10 Dysphagia, unspecified (principal)
CPT/HCPCS: 74230; 92611; G8996; G8997; G8998

== ENCOUNTER 2017-11-06 05:18 | Emergency (ER) | payer MEDICAID ==
[~2017-11-06] VITALS: Ht 157.5 cm; Wt 42.4 kg
[2017-11-06 05:22] VITALS: BP 145/97; PULSE 85; RESP 18; TEMP 98.1; O2SAT 94
[2017-11-06 05:37] VITALS: BP 145/97; PULSE 85; RESP 18; TEMP 98.1; O2SAT 94
[2017-11-06] MEDS ORDERED: ONDANSETRON ODT 4 MG TAB PO ONE (05:45)
--- NOTE | 2017-11-06 05:45 | PD ---
HPI Chief Complaint: Feeding tube irritation Time Seen by Provider: 05:39 Travel History International Travel<30 days: No Contact w/Intl Traveler<30days: No Traveled to known affect area: No History of Present Illness HPI The patient is a 52-year-old female that has had a feeding tube in for 5 days and she has some irritation around the feeding tube. She is due to see the physician, Dr. cMcord at [facility] later today at 5:30 PM. She has some secretions around the feeding tube. The feeding tube is otherwise working well. The patient has squamous cell cancer of the tongue. PFSH Past Medical History Cancer: Yes (TONGUE) Cardiovascular Problems: Yes Diminished Hearing: No Hypertension: Yes Respiratory: Yes (LEFT LUNG SX DUE TO ASPIRATION PNEUMONIA) Pancreatitis: Yes Pneumonia: Yes (D/T ASPIRATION ) Past Surgical History Cholecystectomy: Yes Hysterectomy: Yes Other Surgery: Yes (PARTIAL TONGUE REMOVAL, HX CA TO TONGUE) Social History Alcohol Use: Yes (SOCIALLY) Tobacco Use: No (QUIT 2011) Substance Use: Yes (MJ) Allergies-Medications (Allergen,Severity, Reaction): Coded Allergies: moxifloxacin (Unverified Allergy, Severe, Shortness of Breath, 06/05/17) penicillin G (Unverified Allergy, Severe, SHORT OF BREATH, 06/05/17) tramadol (Unverified Allergy, Severe, SHORT OF BREATH, 06/05/17) Reported Meds & Prescriptions Reported Meds & Active Scripts Active Zofran (Ondansetron HCl) 4 Mg Tab 4 Mg PO Q6HR PRN Pantoprazole (Pantoprazole Sodium) 40 Mg Tab 40 Mg PO DAILY Advair Diskus Inh (Fluticasone-Salmeterol Inh) 250-50 Mcg/Blist Aer 1 Puff INH BID Rinse mouth after use. Allergy Relief (Loratadine) 10 Mg Tab 10 Mg PO DAILY Reported Pramipexole (Pramipexole Dihydrochloride) 0.5 Mg Tab 0.5 Mg PO HS Bisoprolol (Bisoprolol Fumarate) 5 Mg Tab 2.5 Mg PO DAILY Review of Systems Except as stated in HPI: all other systems reviewed are Neg Physical Exam Narrative GENERAL: Well-nourished, well-developed patient in minimal apparent distress with her irritation around the feeding tube. The vital signs show blood pressure 145/97 and oximetry 94% but are otherwise normal. SKIN: Focused skin assessment warm/dry. There is some slight erythema around the feeding tube and a minimal excoriation present. No definite cellulitis is present. A culture will be taken. HEAD: Normocephalic. EYES: No scleral icterus. No injection or drainage. NECK: Supple, trachea midline. No JVD or lymphadenopathy. CARDIOVASCULAR: Regular rate and rhythm without murmurs, gallops, or rubs. RESPIRATORY: Breath sounds equal bilaterally. No accessory muscle use. GASTROINTESTINAL: Abdomen soft, non-tender, nondistended. MUSCULOSKELETAL: No cyanosis, or edema. BACK: Nontender without obvious deformity. No CVA tenderness. Data Data Last Documented VS Vital Signs Date Time Temp Pulse Resp B/P (MAP) Pulse Ox O2 Delivery O2 Flow Rate FiO2 11/06/17 05:37 98.1 85 18 145/97 (113) 94 Orders Orders Ondansetron Odt (Zofran Odt) (11/06/17 05:45) Wound Culture And Gram Stain (11/06/17 05:45) MDM Medical Decision Making Medical Screen Exam Complete: Yes Emergency Medical Condition: Yes Medical Record Reviewed: Yes Differential Diagnosis Cellulitis around feeding tube, ulcer around feeding tube Narrative Course The patient has some irritation around the feeding tube. This will likely lead to infection, perhaps it already has. We will culture the area. She will see Dr. Marcos later on today. In the meantime she should use of Vaseline around the feeding tube to cut down on irritation. Diagnosis Primary Impression: Feeding tube irritation Additional Instructions: As we discussed, do not miss your appointment with Dr. Mccord today at 5:30 PM. Disposition: 01 DISCHARGE HOME Condition: Stable Cyrus Contreras MD Nov 06, 2017 05:45
== END 2017-11-06 06:27 | disposition home or self-care (01) ==
LOC: PHED 05:18
DX: C02.9 Malignant neoplasm of tongue, unspecified (principal); L53.9 Erythematous condition, unspecified; I10 Essential (primary) hypertension; Z87.891 Personal history of nicotine dependence
CPT/HCPCS: 87070; 87077; 87186; 87205; 99283

== ENCOUNTER 2018-01-31 16:27 | Inpatient (IN) ==
[2018-01-31] MEDS: Sod Chloride 0.9% Inj 1,000 ML IV.SIG SCH ×2 (17:37→17:38)
[2018-01-31 17:50] LABS: Baso # (Auto) 0.5 th/mm3 (0.0-0.2); Baso % (Auto) 3.7 % (0.0-2.0); Eos # (Auto) 0.1 th/mm3 (0.0-0.4); Eos % (Auto) 0.5 % (0.0-4.0); Hematocrit 41.5 % (35.0-46.0); Hemoglobin 14.3 gm/dL (11.6-15.3); Lymph % (Auto) 21.4 % (9.0-44.0); Mean Corpuscular HGB Conc 34.4 % (32.0-36.0); Mean Corpuscular Hemoglobin 33.8 pg (27.0-34.0); Mean Corpuscular Volume 98.4 fL (80.0-100.0); Mean Platelet Volume 6.5 fL (7.0-11.0); Mono # (Auto) 0.7 th/mm3 (0.0-0.9); Neut # (Auto) 9.9 th/mm3 (1.8-7.7); Neut % (Auto) 69.4 % (16.0-70.0); Platelet Count 432 th/mm3 (150-450); Red Blood Count 4.22 mil/mm3 (4.00-5.30); Red Cell Distribution Width 13.4 % (11.6-17.2); White Blood Count 14.2 th/mm3 (4.0-11.0)
[2018-01-31 17:59] LABS: Chloride 96 meq/L (98-107); Potassium 4.3 meq/L (3.5-5.1); Sodium 130 meq/L (136-145)
[2018-01-31] MEDS ORDERED: MethylPREDNISolone Sod Succinate Inj 125 MG/2 ML Vial IV.PUSH STA (17:59)
[2018-01-31 18:03] LABS: Anion Gap 11 meq/L (5-15); Blood Urea Nitrogen 11 mg/dL (7-18); Calcium 9.5 mg/dL (8.5-10.1); Carbon Dioxide 23.2 meq/L (21.0-32.0); Glucose,Random 91 mg/dL (74-106); Lipase 71 U/L (73-393)
[2018-01-31 18:06] LABS: Alanine Aminotransferase 24 U/L (10-53); Aspartate Aminotransferase 42 U/L (15-37); Glomerular Filtration Rate 77 mL/min (>89)
[2018-01-31 18:08] LABS: Total Protein 8.3 g/dL (6.4-8.2)
[2018-01-31 18:09] LABS: Alkaline Phosphatase 97 U/L (45-117); Creatine Kinase 202 U/L (26-192)
--- NOTE | 2018-01-31 18:10 | XR ---
EXAM DATE: 01/31/2018 5:57 PM EDT AGE/SEX: 52 years / Female INDICATIONS: Short of breath and chest pain. CLINICAL DATA: This is the patient's initial encounter. Patient reports that signs and symptoms have been present for 2 months and indicates a pain score of 5/10. MEDICAL/SURGICAL HISTORY: . Carcinoma, tongue. Seizures. Hypertension. . Cholecystectomy. Hys terectomy. Tongue cancer resection. Tracheostomy COMPARISON: POI, XR CHEST PA AND LAT, 01/10/2018. . FINDINGS: Trace pleural fluid. Questionable right middle lobe atelectasis. Underlying emphysema. Heart size wit hin normal limits. Surgical clips overlie left hemithorax and left neck. CONCLUSION: Trace pleural fluid. Possible residual right middle lobe atelectasis. Lateral view not available. Electronically signed by: Shayan Garrett MD 01/31/2018 6:08 PM EDT
[2018-01-31 18:14] LABS: Activated Partial Thrombo Time 29.3 sec (24.3-30.1); Prothrombin Time 10.3 sec (9.8-11.6); Troponin I 4.08 ng/mL (0.02-0.05)
[2018-01-31 18:21] LABS: Creatine Kinase MB 14.6 ng/mL (0.5-3.6)
[2018-01-31 18:23] LABS: CKMB Percent 7.2 % (0.0-4.0)
[2018-01-31] MEDS ORDERED: Aspirin 325 MG Tablet PO STA (18:23)
[2018-01-31] MEDS ORDERED: Heparin 10,000 UNITS/10 ML Vial (for IV use) IV.PUSH STA (18:27)
[2018-01-31 18:35] LABS: ABG Base Excess -5.1 mmol/L (-2-2); ABG PCO2 29 mmHg (38-42); ABG PO2 174 mmHg (61-120)
[2018-01-31] MEDS ORDERED: Heparin Drip 25,000 UNIT/250 ML BAG IV.CONT PRN (18:47)
[2018-01-31] MEDS ORDERED: DOPamine 800 MG/500 ML Premix 800 MG/500 ML PLAST..BAG IV.CONT PRN (19:21)
--- NOTE | 2018-01-31 19:30 | ED ---
HPI General Chief complaint: Respiratory Symptoms Stated complaint: trouble breathing/lungs hurt Xseveral months Time Seen by Provider: 01/31/18 17:08 History of Present Illness HPI narrative: 52 female here for evaluation of shortness of breath. History of tongue cancer with partial resection 2007, currently receiving chemotherapy, had cardiac catheterization and was found to have low ejection fraction, she had multiple attacks of pneumonia in the past due to aspiration after the tongue resection, she currently has a G-tube. Patient has been coughing, nonproductive, having shortness of breath and chest pain. Chest pain is mid chest, rated 3 out of 10, started few days ago, got worse this morning, she has no fever chills or night sweats. Related Data Home Medications Medication Instructions Recorded Confirmed bisoprolol fumarate 2.5 mg PO DAILY 01/31/18 01/31/18 fluticasone-salmeterol [Advair 1 inh INHALATION BID 01/31/18 01/31/18 Diskus] loratadine 10 mg PO DAILY 01/31/18 01/31/18 pantoprazole 40 mg PO DAILY 01/31/18 01/31/18 paroxetine HCl 20 mg PO DAILY 01/31/18 01/31/18 pilocarpine HCl 7.5 mg PO TID 01/31/18 01/31/18 pramipexole 0.5 mg PO QPM 01/31/18 01/31/18 tiotropium bromide [Spiriva with 1 cap INHALATION DAILY 01/31/18 01/31/18 HandiHaler] Previous Rx's Medication Instructions Recorded aspirin 81 mg G-TUBE DAILY #30 tab 02/07/18 prednisone 10 mg PO DIRECTED #20 tab 02/07/18 sacubitril-valsartan [Entresto] 1 tab PO BID #60 tab 02/07/18 Allergies Allergy/AdvReac Type Severity Reaction Status Date / Time moxifloxacin Allergy Severe Shortness Verified 01/31/18 16:36 of Breath penicillin G Allergy Severe SHORT OF Verified 01/31/18 16:36 BREATH tramadol Allergy Severe SHORT OF Verified 01/31/18 16:36 BREATH Review of Systems ROS: all other systems reviewed are negative [facility] Social History Social History Substance History: Active Abuse Second Hand Smoke Exposure: No Smoking Status: Former smoker How Often Do You Have a Drink Containing Alcohol: Monthly or less Substance Abuse Detail Marijuana: Substance Use Status: Active Route Used Substance Abuse: Inhalation Substance Frequency: daily Immunization History Tetanus Immunization: >5 Years Hx Influenza Vaccine This Season: Yes Exam Narrative Exam Narrative: GENERAL: Alert oriented 3 no acute distress. SKIN: Focused skin assessment warm/dry. HEAD: Atraumatic. Normocephalic. EYES: Pupils equal and round. No scleral icterus. No injection or drainage. ENT: No nasal bleeding or discharge. Mucous membranes pink and moist. NECK: Trachea midline. No JVD. CARDIOVASCULAR: Regular rate and rhythm. No murmur appreciated. RESPIRATORY: No accessory muscle use. Clear to auscultation. Breath sounds equal bilaterally. GASTROINTESTINAL: G-tube in place, abdomen soft, non-tender, nondistended. Hepatic and splenic margins not palpable. MUSCULOSKELETAL: No obvious deformities. No clubbing. No cyanosis. No edema. NEUROLOGICAL: Awake and alert. No obvious cranial nerve deficits. Motor grossly within normal limits. Normal speech. PSYCHIATRIC: Appropriate mood and affect; insight and judgment normal. Procedures Central Line Placement Right Femoral: Time Out Performed: Yes Patient Placed on Monitor/Pulse Ox: Yes MD Prep: mask, gown and gloves Central Line Prep: Povidone-Iodine 1% Local anesthesia used: lidocaine 1% Ultrasound Used for Placement: Yes Central Line Lumen Inserted: triple Course Initial Documented Vital Signs Temperature 97.4 F L 01/31/18 16:29 Pulse Rate 121 H 01/31/18 16:29 Respiratory Rate 16 01/31/18 16:29 Blood Pressure 98/74 L 01/31/18 16:29 Pulse Oximetry 100 01/31/18 16:29 Last Documented Vital Signs Temperature 98.4 F 02/07/18 12:00 Pulse Rate 100 H 02/07/18 12:00 Respiratory Rate 18 02/07/18 12:00 Blood Pressure 113/81 02/07/18 12:00 Pulse Oximetry 96 02/07/18 12:00 Critical Care Time Critical Care Time: Yes Total Critical Care Time: 35 Attestation: cardiogenic shock, tachycardia, hypotension. Medical Decision Making MDM Narrative Medical decision making narrative: 52 female here for shortness of breath, mild chest pain, elevated troponin 4.08, EKG shows questionable ST segment elevation on V3 and V4 less than 1 mm with no reciprocal changes, repeat shows no changes. Hypotensive, tachycardic concern for septic shock versus cardiogenic shock or combination of both. D-dimer is normal, BNP is normal leukocytosis with left shift cannot identify a source of infection. Patient will need pressors and admission for cardiac ICU. I spoke with Dr. rizzo who recommended to treat as non-STEMI with heparin drip and to send the patient to ICU. I also spoke with Dr. Cordova accepted the patient. Patient will be transferred on dopamine drip as well as heparin drip. Central line in place right femoral. Vitals are stable for transfer. Medical Screen Exam Complete: Yes Emergency Medical Condition: Yes Lab Data Result diagrams: 02/07/18 06:02 02/07/18 06:02 Lab Results 01/31/18 01/31/18 01/31/18 Range/Units 17:22 17:22 17:22 CBC w Diff Auto diff final WBC 14.2 H (4.0-11.0) th/mm3 RBC 4.22 (4.00-5.30) mil/mm3 Hgb 14.3 (11.6-15.3) gm/dL Hct 41.5 (35.0-46.0) % MCV 98.4 (80.0-100.0) fL MCH 33.8 (27.0-34.0) pg MCHC 34.4 (32.0-36.0) % RDW 13.4 (11.6-17.2) % Plt Count 432 (150-450) th/mm3 MPV 6.5 L (7.0-11.0) fL Neut % (Auto) 69.4 (16.0-70.0) % Lymph % (Auto) 21.4 (9.0-44.0) % [place] % (Auto) 5.0 (0.0-8.0) % Eos % (Auto) 0.5 (0.0-4.0) % Baso % (Auto) 3.7 H (0.0-2.0) % Neut # (Auto) 9.9 H (1.8-7.7) th/mm3 Lymph # (Auto) 3.0 (1.0-4.8) th/mm3 [place] # (Auto) 0.7 (0.0-0.9) th/mm3 Eos # (Auto) 0.1 (0.0-0.4) th/mm3 Baso # (Auto) 0.5 H (0.0-0.2) th/mm3 WBC Differential . Differential Comment . PT 10.3 (9.8-11.6) sec INR 1.0 Ratio APTT 29.3 (24.3-30.1) sec D-Dimer Quant (PE/DVT) Less than 0.19 (0.00-0.50) mg/L FEU Puncture Site Patient Temperature O2 Saturation (90-100) % ABG pH (7.380-7.420) ABG pCO2 (38-42) mmHg ABG pO2 (61-120) mmHg ABG HCO3 (22-26) mmol/L ABG O2 Content (12.0-20.0) Vol % ABG Base Excess (-2-2) mmol/L ABG Methemoglobin (0-2) % Howard Test Hemoglobin (12.0-16.0) G/DL Carboxyhemoglobin (0-4) % O2 Delivery Device Liter Flow L/M Vent Setting Inspired O2 % Critical Value Sodium 130 L (136-145) meq/L Potassium 4.3 (3.5-5.1) meq/L Chloride 96 L (98-107) meq/L Carbon Dioxide 23.2 (21.0-32.0) meq/L Anion Gap 11 (5-15) meq/L BUN 11 (7-18) mg/dL Creatinine 0.78 (0.50-1.00) mg/dL Estimated GFR 77 L (>89) mL/min POC Glucose (68-110) mg/dl Random Glucose 91 (74-106) mg/dL Lactic Acid (0.4-2.0) mmol/L Calcium 9.5 (8.5-10.1) mg/dL Phosphorus (2.5-4.9) mg/dL Magnesium (1.5-2.5) mg/dL Total Bilirubin 0.5 (0.2-1.0) mg/dL AST 42 H (15-37) U/L ALT 24 (10-53) U/L Alkaline Phosphatase 97 (45-117) U/L Total Creatine Kinase 202 H (26-192) U/L CK-MB (CK-2) 14.6 H (0.5-3.6) ng/mL CK-MB (CK-2) % 7.2 H* (0.0-4.0) % Troponin I 4.08 H* (0.02-0.05) ng/mL B-Natriuretic Peptide (0-100) pg/mL Total Protein 8.3 H (6.4-8.2) g/dL Albumin 4.0 (3.4-5.0) g/dL Lipase 71 L (73-393) U/L Urine Color (Yellw/Straw) Urine Clarity (Clear) Urine pH (5.0-8.5) Ur Specific [place] (1.002-1.035) Urine Protein (Neg-Trace) mg/dL Urine Glucose (UA) (Negative) mg/dL Urine Ketones (Negative) mg/dL Urine Occult Blood (Negative) Urine Nitrate (Negative) Urine Bilirubin (Negative) Urine Urobilinogen (Less than 2) mg/dL Ur Leukocyte Esterase (Negative) Urine RBC (0-3) /hpf Urine WBC (0-5) /hpf Urine Mucus (Occasional) /lpf Micro UA Comment Ur Microscopic Review Urine Culture Comments Nasal Screen MRSA (PCR) (Negative) 01/31/18 01/31/18 01/31/18 Range/Units 17:22 17:22 18:28 CBC w Diff WBC (4.0-11.0) th/mm3 RBC (4.00-5.30) mil/mm3 Hgb (11.6-15.3) gm/dL Hct (35.0-46.0) % MCV (80.0-100.0) fL MCH (27.0-34.0) pg MCHC (32.0-36.0) % RDW (11.6-17.2) % Plt Count (150-450) th/mm3 MPV (7.0-11.0) fL Neut % (Auto) (16.0-70.0) % Lymph % (Auto) (9.0-44.0) % [place] % (Auto) (0.0-8.0) % Eos % (Auto) (0.0-4.0) % Baso % (Auto) (0.0-2.0) % Neut # (Auto) (1.8-7.7) th/mm3 Lymph # (Auto) (1.0-4.8) th/mm3 [place] # (Auto) (0.0-0.9) th/mm3 Eos # (Auto) (0.0-0.4) th/mm3 Baso # (Auto) (0.0-0.2) th/mm3 WBC Differential Differential Comment PT (9.8-11.6) sec INR Ratio APTT (24.3-30.1) sec D-Dimer Quant (PE/DVT) (0.00-0.50) mg/L FEU Puncture Site Left radial Patient Temperature 98.6 O2 Saturation 96 (90-100) % ABG pH 7.42 (7.380-7.420) ABG pCO2 29 L (38-42) mmHg ABG pO2 174 H (61-120) mmHg ABG HCO3 19 L (22-26) mmol/L ABG O2 Content 17.0 (12.0-20.0) Vol % ABG Base Excess -5.1 L (-2-2) mmol/L ABG Methemoglobin 1.3 (0-2) % Howard Test Present Hemoglobin 12.3 (12.0-16.0) G/DL Carboxyhemoglobin 2.8 (0-4) % O2 Delivery Device Bipap Liter Flow L/M Vent Setting Ipap 10/epap 5 Inspired O2 40 % Critical Value No Sodium (136-145) meq/L Potassium (3.5-5.1) meq/L Chloride (98-107) meq/L Carbon Dioxide (21.0-32.0) meq/L Anion Gap (5-15) meq/L BUN (7-18) mg/dL Creatinine (0.50-1.00) mg/dL Estimated GFR (>89) mL/min POC Glucose (68-110) mg/dl Random Glucose (74-106) mg/dL Lactic Acid 1.9 (0.4-2.0) mmol/L Calcium (8.5-10.1) mg/dL Phosphorus (2.5-4.9) mg/dL Magnesium (1.5-2.5) mg/dL Total Bilirubin (0.2-1.0) mg/dL AST (15-37) U/L ALT (10-53) U/L Alkaline Phosphatase (45-117) U/L Total Creatine Kinase (26-192) U/L CK-MB (CK-2) (0.5-3.6) ng/mL CK-MB (CK-2) % (0.0-4.0) % Troponin I (0.02-0.05) ng/mL B-Natriuretic Peptide 39 (0-100) pg/mL Total Protein (6.4-8.2) g/dL Albumin (3.4-5.0) g/dL Lipase (73-393) U/L Urine Color (Yellw/Straw) Urine Clarity (Clear) Urine pH (5.0-8.5) Ur Specific [place] (1.002-1.035) Urine Protein (Neg-Trace) mg/dL Urine Glucose (UA) (Negative) mg/dL Urine Ketones (Negative) mg/dL Urine Occult Blood (Negative) Urine Nitrate (Negative) Urine Bilirubin (Negative) Urine Urobilinogen (Less than 2) mg/dL Ur Leukocyte Esterase (Negative) Urine RBC (0-3) /hpf Urine WBC (0-5) /hpf Urine Mucus (Occasional) /lpf Micro UA Comment Ur Microscopic Review Urine Culture Comments Nasal Screen MRSA (PCR) (Negative) 02/01/18 02/01/18 02/01/18 Range/Units 00:40 00:40 01:00 CBC w Diff WBC (4.0-11.0) th/mm3 RBC (4.00-5.30) mil/mm3 Hgb (11.6-15.3) gm/dL Hct (35.0-46.0) % MCV (80.0-100.0) fL MCH (27.0-34.0) pg MCHC (32.0-36.0) % RDW (11.6-17.2) % Plt Count (150-450) th/mm3 MPV (7.0-11.0) fL Neut % (Auto) (16.0-70.0) % Lymph % (Auto) (9.0-44.0) % [place] % (Auto) (0.0-8.0) % Eos % (Auto) (0.0-4.0) % Baso % (Auto) (0.0-2.0) % Neut # (Auto) (1.8-7.7) th/mm3 Lymph # (Auto) (1.0-4.8) th/mm3 [place] # (Auto) (0.0-0.9) th/mm3 Eos # (Auto) (0.0-0.4) th/mm3 Baso # (Auto) (0.0-0.2) th/mm3 WBC Differential Differential Comment PT (9.8-11.6) sec INR Ratio APTT 64.8 H D (24.3-30.1) sec D-Dimer Quant (PE/DVT) (0.00-0.50) mg/L FEU Puncture Site Patient Temperature O2 Saturation (90-100) % ABG pH (7.380-7.420) ABG pCO2 (38-42) mmHg ABG pO2 (61-120) mmHg ABG HCO3 (22-26) mmol/L ABG O2 Content (12.0-20.0) Vol % ABG Base Excess (-2-2) mmol/L ABG Methemoglobin (0-2) % Howard Test Hemoglobin (12.0-16.0) G/DL Carboxyhemoglobin (0-4) % O2 Delivery Device Liter Flow L/M Vent Setting Inspired O2 % Critical Value Sodium (136-145) meq/L Potassium (3.5-5.1) meq/L Chloride (98-107) meq/L Carbon Dioxide (21.0-32.0) meq/L Anion Gap (5-15) meq/L BUN (7-18) mg/dL Creatinine (0.50-1.00) mg/dL Estimated GFR (>89) mL/min POC Glucose (68-110) mg/dl Random Glucose (74-106) mg/dL Lactic Acid (0.4-2.0) mmol/L Calcium (8.5-10.1) mg/dL Phosphorus (2.5-4.9) mg/dL Magnesium (1.5-2.5) mg/dL Total Bilirubin (0.2-1.0) mg/dL AST (15-37) U/L ALT (10-53) U/L Alkaline Phosphatase (45-117) U/L Total Creatine Kinase (26-192) U/L CK-MB (CK-2) (0.5-3.6) ng/mL CK-MB (CK-2) % (0.0-4.0) % Troponin I 2.25 H* D (0.02-0.05) ng/mL B-Natriuretic Peptide (0-100) pg/mL Total Protein (6.4-8.2) g/dL Albumin (3.4-5.0) g/dL Lipase (73-393) U/L Urine Color (Yellw/Straw) Urine Clarity (Clear) Urine pH (5.0-8.5) Ur Specific [place] (1.002-1.035) Urine Protein (Neg-Trace) mg/dL Urine Glucose (UA) (Negative) mg/dL Urine Ketones (Negative) mg/dL Urine Occult Blood (Negative) Urine Nitrate (Negative) Urine Bilirubin (Negative) Urine Urobilinogen (Less than 2) mg/dL Ur Leukocyte Esterase (Negative) Urine RBC (0-3) /hpf Urine WBC (0-5) /hpf Urine Mucus (Occasional) /lpf Micro UA Comment Ur Microscopic Review Urine Culture Comments Nasal Screen MRSA (PCR) Not detected (Negative) 02/01/18 02/01/18 02/01/18 Range/Units 01:00 03:05 04:55 CBC w Diff WBC 8.4 (4.0-11.0) th/mm3 RBC 3.72 L (4.00-5.30) mil/mm3 Hgb 12.6 (11.6-15.3) gm/dL Hct 36.9 (35.0-46.0) % MCV 99.0 (80.0-100.0) fL MCH 34.0 (27.0-34.0) pg MCHC 34.3 (32.0-36.0) % RDW 14.3 (11.6-17.2) % Plt Count 367 (150-450) th/mm3 MPV 6.3 L (7.0-11.0) fL Neut % (Auto) 82.4 H (16.0-70.0) % Lymph % (Auto) 14.5 (9.0-44.0) % [place] % (Auto) 2.9 (0.0-8.0) % Eos % (Auto) 0.0 (0.0-4.0) % Baso % (Auto) 0.2 (0.0-2.0) % Neut # (Auto) 6.9 (1.8-7.7) th/mm3 Lymph # (Auto) 1.2 (1.0-4.8) th/mm3 [place] # (Auto) 0.2 (0.0-0.9) th/mm3 Eos # (Auto) 0.0 (0.0-0.4) th/mm3 Baso # (Auto) 0.0 (0.0-0.2) th/mm3 WBC Differential . Differential Comment Auto diff final PT (9.8-11.6) sec INR Ratio APTT (24.3-30.1) sec D-Dimer Quant (PE/DVT) (0.00-0.50) mg/L FEU Puncture Site Patient Temperature O2 Saturation (90-100) % ABG pH (7.380-7.420) ABG pCO2 (38-42) mmHg ABG pO2 (61-120) mmHg ABG HCO3 (22-26) mmol/L ABG O2 Content (12.0-20.0) Vol % ABG Base Excess (-2-2) mmol/L ABG Methemoglobin (0-2) % Howard Test Hemoglobin (12.0-16.0) G/DL Carboxyhemoglobin (0-4) % O2 Delivery Device Liter Flow L/M Vent Setting Inspired O2 % Critical Value Sodium (136-145) meq/L Potassium (3.5-5.1) meq/L Chloride (98-107) meq/L Carbon Dioxide (21.0-32.0) meq/L Anion Gap (5-15) meq/L BUN (7-18) mg/dL Creatinine (0.50-1.00) mg/dL Estimated GFR (>89) mL/min POC Glucose (68-110) mg/dl Random Glucose (74-106) mg/dL Lactic Acid (0.4-2.0) mmol/L Calcium (8.5-10.1) mg/dL Phosphorus (2.5-4.9) mg/dL Magnesium 1.8 (1.5-2.5) mg/dL Total Bilirubin (0.2-1.0) mg/dL AST (15-37) U/L ALT (10-53) U/L Alkaline Phosphatase (45-117) U/L Total Creatine Kinase (26-192) U/L CK-MB (CK-2) (0.5-3.6) ng/mL CK-MB (CK-2) % (0.0-4.0) % Troponin I (0.02-0.05) ng/mL B-Natriuretic Peptide (0-100) pg/mL Total Protein (6.4-8.2) g/dL Albumin (3.4-5.0) g/dL Lipase (73-393) U/L Urine Color Straw (Yellw/Straw) Urine Clarity Clear (Clear) Urine pH 6.0 (5.0-8.5) Ur Specific [place] 1.025 (1.002-1.035) Urine Protein Negative (Neg-Trace) mg/dL Urine Glucose (UA) Negative (Negative) mg/dL Urine Ketones 20 (Negative) mg/dL Urine Occult Blood Small H (Negative) Urine Nitrate Negative (Negative) Urine Bilirubin Negative (Negative) Urine Urobilinogen Less than 2 (Less than 2) mg/dL Ur Leukocyte Esterase Negative (Negative) Urine RBC 3 (0-3) /hpf Urine WBC 2 (0-5) /hpf Urine Mucus Few H (Occasional) /lpf Micro UA Comment Cath-culture not ind Ur Microscopic Review Not Reportable Urine Culture Comments Cath-cult not ind Nasal Screen MRSA (PCR) (Negative) 02/01/18 02/01/18 02/01/18 Range/Units 04:55 04:55 07:30 CBC w Diff WBC (4.0-11.0) th/mm3 RBC (4.00-5.30) mil/mm3 Hgb (11.6-15.3) gm/dL Hct (35.0-46.0) % MCV (80.0-100.0) fL MCH (27.0-34.0) pg MCHC (32.0-36.0) % RDW (11.6-17.2) % Plt Count (150-450) th/mm3 MPV (7.0-11.0) fL Neut % (Auto) (16.0-70.0) % Lymph % (Auto) (9.0-44.0) % [place] % (Auto) (0.0-8.0) % Eos % (Auto) (0.0-4.0) % Baso % (Auto) (0.0-2.0) % Neut # (Auto) (1.8-7.7) th/mm3 Lymph # (Auto) (1.0-4.8) th/mm3 [place] # (Auto) (0.0-0.9) th/mm3 Eos # (Auto) (0.0-0.4) th/mm3 Baso # (Auto) (0.0-0.2) th/mm3 WBC Differential Differential Comment PT (9.8-11.6) sec INR Ratio APTT 56.1 H (24.3-30.1) sec D-Dimer Quant (PE/DVT) (0.00-0.50) mg/L FEU Puncture Site Patient Temperature O2 Saturation (90-100) % ABG pH (7.380-7.420) ABG pCO2 (38-42) mmHg ABG pO2 (61-120) mmHg ABG HCO3 (22-26) mmol/L ABG O2 Content (12.0-20.0) Vol % ABG Base Excess (-2-2) mmol/L ABG Methemoglobin (0-2) % Howard Test Hemoglobin (12.0-16.0) G/DL Carboxyhemoglobin (0-4) % O2 Delivery Device Liter Flow L/M Vent Setting Inspired O2 % Critical Value Sodium 132 L (136-145) meq/L Potassium 3.9 (3.5-5.1) meq/L Chloride 97 L (98-107) meq/L Carbon Dioxide 22.8 (21.0-32.0) meq/L Anion Gap 12 (5-15) meq/L BUN 14 (7-18) mg/dL Creatinine 0.65 (0.50-1.00) mg/dL Estimated GFR Greater than 89 (>89) mL/min POC Glucose (68-110) mg/dl Random Glucose 124 H (74-106) mg/dL Lactic Acid 1.7 (0.4-2.0) mmol/L Calcium 8.5 D (8.5-10.1) mg/dL Phosphorus (2.5-4.9) mg/dL Magnesium (1.5-2.5) mg/dL Total Bilirubin 0.5 (0.2-1.0) mg/dL AST 85 H (15-37) U/L ALT 58 H (10-53) U/L Alkaline Phosphatase 108 (45-117) U/L Total Creatine Kinase (26-192) U/L CK-MB (CK-2) (0.5-3.6) ng/mL CK-MB (CK-2) % (0.0-4.0) % Troponin I 2.13 H* D (0.02-0.05) ng/mL B-Natriuretic Peptide (0-100) pg/mL Total Protein 7.2 D (6.4-8.2) g/dL Albumin 3.5 (3.4-5.0) g/dL Lipase (73-393) U/L Urine Color (Yellw/Straw) Urine Clarity (Clear) Urine pH (5.0-8.5) Ur Specific [place] (1.002-1.035) Urine Protein (Neg-Trace) mg/dL Urine Glucose (UA) (Negative) mg/dL Urine Ketones (Negative) mg/dL Urine Occult Blood (Negative) Urine Nitrate (Negative) Urine Bilirubin (Negative) Urine Urobilinogen (Less than 2) mg/dL Ur Leukocyte Esterase (Negative) Urine RBC (0-3) /hpf Urine WBC (0-5) /hpf Urine Mucus (Occasional) /lpf Micro UA Comment Ur Microscopic Review Urine Culture Comments Nasal Screen MRSA (PCR) (Negative) 02/01/18 02/02/18 02/03/18 Range/Units 17:30 04:30 04:50 CBC w Diff WBC 12.8 H D 18.7 H (4.0-11.0) th/mm3 RBC 3.31 L 3.37 L (4.00-5.30) mil/mm3 Hgb 11.0 L 11.3 L (11.6-15.3) gm/dL Hct 32.2 L 33.0 L (35.0-46.0) % MCV 97.2 97.9 (80.0-100.0) fL MCH 33.3 33.6 (27.0-34.0) pg MCHC 34.3 34.3 (32.0-36.0) % RDW 14.0 14.3 (11.6-17.2) % Plt Count 333 339 (150-450) th/mm3 MPV 6.4 L 6.6 L (7.0-11.0) fL Neut % (Auto) (16.0-70.0) % Lymph % (Auto) (9.0-44.0) % [place] % (Auto) (0.0-8.0) % Eos % (Auto) (0.0-4.0) % Baso % (Auto) (0.0-2.0) % Neut # (Auto) (1.8-7.7) th/mm3 Lymph # (Auto) (1.0-4.8) th/mm3 [place] # (Auto) (0.0-0.9) th/mm3 Eos # (Auto) (0.0-0.4) th/mm3 Baso # (Auto) (0.0-0.2) th/mm3 WBC Differential Differential Comment PT (9.8-11.6) sec INR Ratio APTT (24.3-30.1) sec D-Dimer Quant (PE/DVT) (0.00-0.50) mg/L FEU Puncture Site Patient Temperature O2 Saturation (90-100) % ABG pH (7.380-7.420) ABG pCO2 (38-42) mmHg ABG pO2 (61-120) mmHg ABG HCO3 (22-26) mmol/L ABG O2 Content (12.0-20.0) Vol % ABG Base Excess (-2-2) mmol/L ABG Methemoglobin (0-2) % Howard Test Hemoglobin (12.0-16.0) G/DL Carboxyhemoglobin (0-4) % O2 Delivery Device Liter Flow L/M Vent Setting Inspired O2 % Critical Value Sodium (136-145) meq/L Potassium (3.5-5.1) meq/L Chloride (98-107) meq/L Carbon Dioxide (21.0-32.0) meq/L Anion Gap (5-15) meq/L BUN (7-18) mg/dL Creatinine (0.50-1.00) mg/dL Estimated GFR (>89) mL/min POC Glucose (68-110) mg/dl Random Glucose (74-106) mg/dL Lactic Acid (0.4-2.0) mmol/L Calcium (8.5-10.1) mg/dL Phosphorus (2.5-4.9) mg/dL Magnesium (1.5-2.5) mg/dL Total Bilirubin (0.2-1.0) mg/dL AST (15-37) U/L ALT (10-53) U/L Alkaline Phosphatase (45-117) U/L Total Creatine Kinase (26-192) U/L CK-MB (CK-2) (0.5-3.6) ng/mL CK-MB (CK-2) % (0.0-4.0) % Troponin I 1.79 H* D (0.02-0.05) ng/mL B-Natriuretic Peptide (0-100) pg/mL Total Protein (6.4-8.2) g/dL Albumin (3.4-5.0) g/dL Lipase (73-393) U/L Urine Color (Yellw/Straw) Urine Clarity (Clear) Urine pH (5.0-8.5) Ur Specific [place] (1.002-1.035) Urine Protein (Neg-Trace) mg/dL Urine Glucose (UA) (Negative) mg/dL Urine Ketones (Negative) mg/dL Urine Occult Blood (Negative) Urine Nitrate (Negative) Urine Bilirubin (Negative) Urine Urobilinogen (Less than 2) mg/dL Ur Leukocyte Esterase (Negative) Urine RBC (0-3) /hpf Urine WBC (0-5) /hpf Urine Mucus (Occasional) /lpf Micro UA Comment Ur Microscopic Review Urine Culture Comments Nasal Screen MRSA (PCR) (Negative) 02/03/18 02/04/18 02/04/18 Range/Units 04:50 05:12 05:30 CBC w Diff WBC 23.6 H (4.0-11.0) th/mm3 RBC 3.68 L (4.00-5.30) mil/mm3 Hgb 12.2 (11.6-15.3) gm/dL Hct 37.0 (35.0-46.0) % MCV 100.3 H (80.0-100.0) fL MCH 33.2 (27.0-34.0) pg MCHC 33.1 (32.0-36.0) % RDW 14.5 (11.6-17.2) % Plt Count 348 (150-450) th/mm3 MPV 6.9 L (7.0-11.0) fL Neut % (Auto) (16.0-70.0) % Lymph % (Auto) (9.0-44.0) % [place] % (Auto) (0.0-8.0) % Eos % (Auto) (0.0-4.0) % Baso % (Auto) (0.0-2.0) % Neut # (Auto) (1.8-7.7) th/mm3 Lymph # (Auto) (1.0-4.8) th/mm3 [place] # (Auto) (0.0-0.9) th/mm3 Eos # (Auto) (0.0-0.4) th/mm3 Baso # (Auto) (0.0-0.2) th/mm3 WBC Differential Differential Comment PT (9.8-11.6) sec INR Ratio APTT (24.3-30.1) sec D-Dimer Quant (PE/DVT) (0.00-0.50) mg/L FEU Puncture Site Right radial Patient Temperature 98.6 O2 Saturation 96 (90-100) % ABG pH 7.37 L (7.380-7.420) ABG pCO2 63 H* (38-42) mmHg ABG pO2 122 H (61-120) mmHg ABG HCO3 36 H (22-26) mmol/L ABG O2 Content 17.9 (12.0-20.0) Vol % ABG Base Excess 10.3 H (-2-2) mmol/L ABG Methemoglobin 1.3 (0-2) % Howard Test Present Hemoglobin 13.1 (12.0-16.0) G/DL Carboxyhemoglobin 0.7 (0-4) % O2 Delivery Device Nasal cannula Liter Flow 3.00 L/M Vent Setting Inspired O2 % Critical Value Yes Sodium 133 L (136-145) meq/L Potassium 3.9 (3.5-5.1) meq/L Chloride 94 L (98-107) meq/L Carbon Dioxide 32.6 H D (21.0-32.0) meq/L Anion Gap 6 (5-15) meq/L BUN 32 H (7-18) mg/dL Creatinine 0.84 (0.50-1.00) mg/dL Estimated GFR 71 L (>89) mL/min POC Glucose (68-110) mg/dl Random Glucose 198 H (74-106) mg/dL Lactic Acid (0.4-2.0) mmol/L Calcium 8.3 L (8.5-10.1) mg/dL Phosphorus 2.0 L (2.5-4.9) mg/dL Magnesium 1.8 (1.5-2.5) mg/dL Total Bilirubin (0.2-1.0) mg/dL AST (15-37) U/L ALT (10-53) U/L Alkaline Phosphatase (45-117) U/L Total Creatine Kinase (26-192) U/L CK-MB (CK-2) (0.5-3.6) ng/mL CK-MB (CK-2) % (0.0-4.0) % Troponin I (0.02-0.05) ng/mL B-Natriuretic Peptide (0-100) pg/mL Total Protein (6.4-8.2) g/dL Albumin (3.4-5.0) g/dL Lipase (73-393) U/L Urine Color (Yellw/Straw) Urine Clarity (Clear) Urine pH (5.0-8.5) Ur Specific [place] (1.002-1.035) Urine Protein (Neg-Trace) mg/dL Urine Glucose (UA) (Negative) mg/dL Urine Ketones (Negative) mg/dL Urine Occult Blood (Negative) Urine Nitrate (Negative) Urine Bilirubin (Negative) Urine Urobilinogen (Less than 2) mg/dL Ur Leukocyte Esterase (Negative) Urine RBC (0-3) /hpf Urine WBC (0-5) /hpf Urine Mucus (Occasional) /lpf Micro UA Comment Ur Microscopic Review Urine Culture Comments Nasal Screen MRSA (PCR) (Negative) 02/04/18 02/04/18 02/04/18 Range/Units 05:30 05:30 07:50 CBC w Diff WBC (4.0-11.0) th/mm3 RBC (4.00-5.30) mil/mm3 Hgb (11.6-15.3) gm/dL Hct (35.0-46.0) % MCV (80.0-100.0) fL MCH (27.0-34.0) pg MCHC (32.0-36.0) % RDW (11.6-17.2) % Plt Count (150-450) th/mm3 MPV (7.0-11.0) fL Neut % (Auto) (16.0-70.0) % Lymph % (Auto) (9.0-44.0) % [place] % (Auto) (0.0-8.0) % Eos % (Auto) (0.0-4.0) % Baso % (Auto) (0.0-2.0) % Neut # (Auto) (1.8-7.7) th/mm3 Lymph # (Auto) (1.0-4.8) th/mm3 [place] # (Auto) (0.0-0.9) th/mm3 Eos # (Auto) (0.0-0.4) th/mm3 Baso # (Auto) (0.0-0.2) th/mm3 WBC Differential Differential Comment PT (9.8-11.6) sec INR Ratio APTT (24.3-30.1) sec D-Dimer Quant (PE/DVT) (0.00-0.50) mg/L FEU Puncture Site Patient Temperature O2 Saturation (90-100) % ABG pH (7.380-7.420) ABG pCO2 (38-42) mmHg ABG pO2 (61-120) mmHg ABG HCO3 (22-26) mmol/L ABG O2 Content (12.0-20.0) Vol % ABG Base Excess (-2-2) mmol/L ABG Methemoglobin (0-2) % Howard Test Hemoglobin (12.0-16.0) G/DL Carboxyhemoglobin (0-4) % O2 Delivery Device Liter Flow L/M Vent Setting Inspired O2 % Critical Value Sodium 136 (136-145) meq/L Potassium 4.0 (3.5-5.1) meq/L Chloride 93 L (98-107) meq/L Carbon Dioxide 38.9 H (21.0-32.0) meq/L Anion Gap 4 L (5-15) meq/L BUN 46 H (7-18) mg/dL Creatinine 0.91 (0.50-1.00) mg/dL Estimated GFR 65 L (>89) mL/min POC Glucose 265 H (68-110) mg/dl Random Glucose 180 H (74-106) mg/dL Lactic Acid (0.4-2.0) mmol/L Calcium 8.7 (8.5-10.1) mg/dL Phosphorus 3.7 D (2.5-4.9) mg/dL Magnesium 2.2 (1.5-2.5) mg/dL Total Bilirubin (0.2-1.0) mg/dL AST (15-37) U/L ALT (10-53) U/L Alkaline Phosphatase (45-117) U/L Total Creatine Kinase (26-192) U/L CK-MB (CK-2) (0.5-3.6) ng/mL CK-MB (CK-2) % (0.0-4.0) % Troponin I (0.02-0.05) ng/mL B-Natriuretic Peptide 2184 H (0-100) pg/mL Total Protein (6.4-8.2) g/dL Albumin (3.4-5.0) g/dL Lipase (73-393) U/L Urine Color (Yellw/Straw) Urine Clarity (Clear) Urine pH (5.0-8.5) Ur Specific [place] (1.002-1.035) Urine Protein (Neg-Trace) mg/dL Urine Glucose (UA) (Negative) mg/dL Urine Ketones (Negative) mg/dL Urine Occult Blood (Negative) Urine Nitrate (Negative) Urine Bilirubin (Negative) Urine Urobilinogen (Less than 2) mg/dL Ur Leukocyte Esterase (Negative) Urine RBC (0-3) /hpf Urine WBC (0-5) /hpf Urine Mucus (Occasional) /lpf Micro UA Comment Ur Microscopic Review Urine Culture Comments Nasal Screen MRSA (PCR) (Negative) 02/04/18 02/04/18 02/04/18 Range/Units 11:09 12:53 15:34 CBC w Diff WBC (4.0-11.0) th/mm3 RBC (4.00-5.30) mil/mm3 Hgb (11.6-15.3) gm/dL Hct (35.0-46.0) % MCV (80.0-100.0) fL MCH (27.0-34.0) pg MCHC (32.0-36.0) % RDW (11.6-17.2) % Plt Count (150-450) th/mm3 MPV (7.0-11.0) fL Neut % (Auto) (16.0-70.0) % Lymph % (Auto) (9.0-44.0) % [place] % (Auto) (0.0-8.0) % Eos % (Auto) (0.0-4.0) % Baso % (Auto) (0.0-2.0) % Neut # (Auto) (1.8-7.7) th/mm3 Lymph # (Auto) (1.0-4.8) th/mm3 [place] # (Auto) (0.0-0.9) th/mm3 Eos # (Auto) (0.0-0.4) th/mm3 Baso # (Auto) (0.0-0.2) th/mm3 WBC Differential Differential Comment PT (9.8-11.6) sec INR Ratio APTT (24.3-30.1) sec D-Dimer Quant (PE/DVT) (0.00-0.50) mg/L FEU Puncture Site Left radial Patient Temperature 98.6 O2 Saturation 96 (90-100) % ABG pH 7.44 H (7.380-7.420) ABG pCO2 52 H* (38-42) mmHg ABG pO2 106 (61-120) mmHg ABG HCO3 35 H (22-26) mmol/L ABG O2 Content 16.8 (12.0-20.0) Vol % ABG Base Excess 9.9 H (-2-2) mmol/L ABG Methemoglobin 1.3 (0-2) % Howard Test Present Hemoglobin 12.4 (12.0-16.0) G/DL Carboxyhemoglobin 0.9 (0-4) % O2 Delivery Device Nasal cannula Liter Flow 3.00 L/M Vent Setting Inspired O2 % Critical Value Yes Sodium (136-145) meq/L Potassium (3.5-5.1) meq/L Chloride (98-107) meq/L Carbon Dioxide (21.0-32.0) meq/L Anion Gap (5-15) meq/L BUN (7-18) mg/dL Creatinine (0.50-1.00) mg/dL Estimated GFR (>89) mL/min POC Glucose 298 H (68-110) mg/dl Random Glucose (74-106) mg/dL Lactic Acid 2.8 H (0.4-2.0) mmol/L Calcium (8.5-10.1) mg/dL Phosphorus (2.5-4.9) mg/dL Magnesium (1.5-2.5) mg/dL Total Bilirubin (0.2-1.0) mg/dL AST (15-37) U/L ALT (10-53) U/L Alkaline Phosphatase (45-117) U/L Total Creatine Kinase (26-192) U/L CK-MB (CK-2) (0.5-3.6) ng/mL CK-MB (CK-2) % (0.0-4.0) % Troponin I (0.02-0.05) ng/mL B-Natriuretic Peptide (0-100) pg/mL Total Protein (6.4-8.2) g/dL Albumin (3.4-5.0) g/dL Lipase (73-393) U/L Urine Color (Yellw/Straw) Urine Clarity (Clear) Urine pH (5.0-8.5) Ur Specific [place] (1.002-1.035) Urine Protein (Neg-Trace) mg/dL Urine Glucose (UA) (Negative) mg/dL Urine Ketones (Negative) mg/dL Urine Occult Blood (Negative) Urine Nitrate (Negative) Urine Bilirubin (Negative) Urine Urobilinogen (Less than 2) mg/dL Ur Leukocyte Esterase (Negative) Urine RBC (0-3) /hpf Urine WBC (0-5) /hpf Urine Mucus (Occasional) /lpf Micro UA Comment Ur Microscopic Review Urine Culture Comments Nasal Screen MRSA (PCR) (Negative) 02/05/18 02/05/18 02/06/18 Range/Units 04:38 04:38 04:39 CBC w Diff WBC 14.3 H 11.6 H (4.0-11.0) th/mm3 RBC 3.36 L 3.32 L (4.00-5.30) mil/mm3 Hgb 11.3 L 11.1 L (11.6-15.3) gm/dL Hct 34.1 L 33.2 L (35.0-46.0) % MCV 101.4 H 99.9 (80.0-100.0) fL MCH 33.6 33.6 (27.0-34.0) pg MCHC 33.1 33.6 (32.0-36.0) % RDW 14.8 14.5 (11.6-17.2) % Plt Count 279 293 (150-450) th/mm3 MPV 7.3 6.9 L (7.0-11.0) fL Neut % (Auto) (16.0-70.0) % Lymph % (Auto) (9.0-44.0) % [place] % (Auto) (0.0-8.0) % Eos % (Auto) (0.0-4.0) % Baso % (Auto) (0.0-2.0) % Neut # (Auto) (1.8-7.7) th/mm3 Lymph # (Auto) (1.0-4.8) th/mm3 [place] # (Auto) (0.0-0.9) th/mm3 Eos # (Auto) (0.0-0.4) th/mm3 Baso # (Auto) (0.0-0.2) th/mm3 WBC Differential Differential Comment PT (9.8-11.6) sec INR Ratio APTT (24.3-30.1) sec D-Dimer Quant (PE/DVT) (0.00-0.50) mg/L FEU Puncture Site Patient Temperature O2 Saturation (90-100) % ABG pH (7.380-7.420) ABG pCO2 (38-42) mmHg ABG pO2 (61-120) mmHg ABG HCO3 (22-26) mmol/L ABG O2 Content (12.0-20.0) Vol % ABG Base Excess (-2-2) mmol/L ABG Methemoglobin (0-2) % Howard Test Hemoglobin (12.0-16.0) G/DL Carboxyhemoglobin (0-4) % O2 Delivery Device Liter Flow L/M Vent Setting Inspired O2 % Critical Value Sodium 139 (136-145) meq/L Potassium 4.3 (3.5-5.1) meq/L Chloride 99 (98-107) meq/L Carbon Dioxide 37.4 H (21.0-32.0) meq/L Anion Gap 3 L (5-15) meq/L BUN 48 H (7-18) mg/dL Creatinine 0.58 (0.50-1.00) mg/dL Estimated GFR Greater than 89 (>89) mL/min POC Glucose (68-110) mg/dl Random Glucose 143 H (74-106) mg/dL Lactic Acid (0.4-2.0) mmol/L Calcium 8.6 (8.5-10.1) mg/dL Phosphorus 2.1 L D (2.5-4.9) mg/dL Magnesium 2.4 (1.5-2.5) mg/dL Total Bilirubin (0.2-1.0) mg/dL AST (15-37) U/L ALT (10-53) U/L Alkaline Phosphatase (45-117) U/L Total Creatine Kinase (26-192) U/L CK-MB (CK-2) (0.5-3.6) ng/mL CK-MB (CK-2) % (0.0-4.0) % Troponin I (0.02-0.05) ng/mL B-Natriuretic Peptide (0-100) pg/mL Total Protein (6.4-8.2) g/dL Albumin (3.4-5.0) g/dL Lipase (73-393) U/L Urine Color (Yellw/Straw) Urine Clarity (Clear) Urine pH (5.0-8.5) Ur Specific [place] (1.002-1.035) Urine Protein (Neg-Trace) mg/dL Urine Glucose (UA) (Negative) mg/dL Urine Ketones (Negative) mg/dL Urine Occult Blood (Negative) Urine Nitrate (Negative) Urine Bilirubin (Negative) Urine Urobilinogen (Less than 2) mg/dL Ur Leukocyte Esterase (Negative) Urine RBC (0-3) /hpf Urine WBC (0-5) /hpf Urine Mucus (Occasional) /lpf Micro UA Comment Ur Microscopic Review Urine Culture Comments Nasal Screen MRSA (PCR) (Negative) 02/06/18 02/07/18 02/07/18 Range/Units 04:39 06:02 06:02 CBC w Diff WBC 10.0 (4.0-11.0) th/mm3 RBC 3.53 L (4.00-5.30) mil/mm3 Hgb 11.8 (11.6-15.3) gm/dL Hct 34.6 L (35.0-46.0) % MCV 98.1 (80.0-100.0) fL MCH 33.4 (27.0-34.0) pg MCHC 34.1 (32.0-36.0) % RDW 14.3 (11.6-17.2) % Plt Count 356 (150-450) th/mm3 MPV 7.1 (7.0-11.0) fL Neut % (Auto) (16.0-70.0) % Lymph % (Auto) (9.0-44.0) % [place] % (Auto) (0.0-8.0) % Eos % (Auto) (0.0-4.0) % Baso % (Auto) (0.0-2.0) % Neut # (Auto) (1.8-7.7) th/mm3 Lymph # (Auto) (1.0-4.8) th/mm3 [place] # (Auto) (0.0-0.9) th/mm3 Eos # (Auto) (0.0-0.4) th/mm3 Baso # (Auto) (0.0-0.2) th/mm3 WBC Differential Differential Comment PT (9.8-11.6) sec INR Ratio APTT (24.3-30.1) sec D-Dimer Quant (PE/DVT) (0.00-0.50) mg/L FEU Puncture Site Patient Temperature O2 Saturation (90-100) % ABG pH (7.380-7.420) ABG pCO2 (38-42) mmHg ABG pO2 (61-120) mmHg ABG HCO3 (22-26) mmol/L ABG O2 Content (12.0-20.0) Vol % ABG Base Excess (-2-2) mmol/L ABG Methemoglobin (0-2) % Howard Test Hemoglobin (12.0-16.0) G/DL Carboxyhemoglobin (0-4) % O2 Delivery Device Liter Flow L/M Vent Setting Inspired O2 % Critical Value Sodium 137 136 (136-145) meq/L Potassium 4.6 4.0 (3.5-5.1) meq/L Chloride 97 L 96 L (98-107) meq/L Carbon Dioxide 36.9 H 33.6 H (21.0-32.0) meq/L Anion Gap 3 L 6 (5-15) meq/L BUN 47 H 36 H (7-18) mg/dL Creatinine 0.68 0.52 (0.50-1.00) mg/dL Estimated GFR Greater than 89 Greater than 89 (>89) mL/min POC Glucose (68-110) mg/dl Random Glucose 127 H 142 H (74-106) mg/dL Lactic Acid (0.4-2.0) mmol/L Calcium 8.4 L 8.7 (8.5-10.1) mg/dL Phosphorus 2.1 L 3.3 D (2.5-4.9) mg/dL Magnesium 2.2 2.4 (1.5-2.5) mg/dL Total Bilirubin (0.2-1.0) mg/dL AST (15-37) U/L ALT (10-53) U/L Alkaline Phosphatase (45-117) U/L Total Creatine Kinase (26-192) U/L CK-MB (CK-2) (0.5-3.6) ng/mL CK-MB (CK-2) % (0.0-4.0) % Troponin I (0.02-0.05) ng/mL B-Natriuretic Peptide (0-100) pg/mL Total Protein (6.4-8.2) g/dL Albumin (3.4-5.0) g/dL Lipase (73-393) U/L Urine Color (Yellw/Straw) Urine Clarity (Clear) Urine pH (5.0-8.5) Ur Specific [place] (1.002-1.035) Urine Protein (Neg-Trace) mg/dL Urine Glucose (UA) (Negative) mg/dL Urine Ketones (Negative) mg/dL Urine Occult Blood (Negative) Urine Nitrate (Negative) Urine Bilirubin (Negative) Urine Urobilinogen (Less than 2) mg/dL Ur Leukocyte Esterase (Negative) Urine RBC (0-3) /hpf Urine WBC (0-5) /hpf Urine Mucus (Occasional) /lpf Micro UA Comment Ur Microscopic Review Urine Culture Comments Nasal Screen MRSA (PCR) (Negative) Imaging Data Radiologist's impression: Chest X-Ray 01/31/18 17:09 CONCLUSION: Trace pleural fluid. Possible residual right middle lobe atelectasis. Lateral view not available. Chest CTA 01/31/18 19:21 CONCLUSION: 1. Negative for pulmonary embolus. 2. Fairly extensive peribronchial thickening bilaterally with mild bronchiectasis and distal airway disease. Partial atelectasis of the right middle lobe associated with peribronchial thickening of the right middle lobe segmental bronchi. 3. Moderate emphysema. Gastrostomy tube present. Mild coronary calcifications. Chest X-Ray 02/04/18 00:00 CONCLUSION: No acute cardiopulmonary disease identified. Discharge Plan Discharge Disposition Patient Disposition[place] [facility] [place] Condition: Good Discharge Order Discharge Orders: Discharge Order (Routine); Ordered 02/07/18 Ordered By: Corina Velásquez Physicians Team ED Provider: Jeremiah Hutson Primary Care Provider: Lucy Knight Attending Provider: Corina Velásquez Other Providers: Kennedi Rizzo ; [facility],Insurance ; Pablo Lazaro Discharge Interventions Interventions: ED Discharge Assessment Last Done: 01/31/18 21:22 Vital Signs Last Done: 01/31/18 21:26 Status ED Status: Left Department Discharge Information Discharge Date/Time: 01/31/18 21:31
--- NOTE | 2018-01-31 20:37 | CT ---
EXAM DATE: 01/31/2018 8:26 PM EDT AGE/SEX: 52 years / Female INDICATIONS: Shortness of breath. Chest pain. CLINICAL DATA: This is the patient's initial encounter. Patient reports that signs and symptoms have been present for 1 day and indicates a pain score of 6/10. MEDICAL/SURGICAL HISTORY: Chronic obstructive pulmonary disease. Oral cancer. Cholecystectomy. Hy sterectomy. RADIATION DOSE: 5.63 CTDI (mGy) COMPARISON: No prior exams available for comparison. TECHNIQUE: Volumetric scanning was performed using a multi-row detector CT scanner during bolus infu huy of 75 ml Omnipaque 350 (iohexol) nonionic water-soluble contrast as a single exam dose. The ene a was post processed with a variety of visualization algorithms including full volume maximum intensi ty projection and sliding thin slab reformation. Using automated exposure control and adjustment of the mA and/or kV according to patient size, radiation dose was kept as low as reasonably achievable t o obtain optimal diagnostic quality images. DICOM format image data is available electronically for review and comparison. FINDINGS: The pulmonary arteries reveal no filling defects to suggest pulmonary embolic disease. There is persi stent partial atelectasis of the right middle lobe similar to a chest radiograph from January 10. No o ther lung consolidation or atelectasis. There is fairly extensive peribronchial thickening present wi th multiple areas of mild distal airway bronchiectasis and some distal mucoid plugging. There is mode rate underlying emphysema. There is no pleural or pericardial effusion. No significant adenopathy. No acute findings in the upper abdomen. Gastrostomy tube present. CONCLUSION: 1. Negative for pulmonary embolus. 2. Fairly extensive peribronchial thickening bilaterally with mild bronchiectasis and distal airway disease. Partial atelectasis of the right middle lobe associated with peribronchial thickening of the right middle lobe segmental bronchi. 3. Moderate emphysema. Gastrostomy tube present. Mild coronary calcifications. Electronically signed by: Shayan Garrett MD 01/31/2018 8:35 PM EDT
[2018-01-31] MEDS ORDERED: Clindamycin 600 mg/NS Premix 600 MG/50 ML PIGGYBACK IV.SIG STA (20:38)
[2018-01-31] MEDS ORDERED: DOPamine 400 MG/250 ML Premix 400 MG/250 ML BAG IV.CONT PRN (20:45)
[2018-01-31] MEDS ORDERED: Acetaminophen 325 MG Tablet PO PRN (23:46)
[2018-01-31] MEDS ORDERED: Bisacodyl 10 MG Supp RECTAL PRN (23:46)
[2018-02-01] MEDS ORDERED: Heparin 10,000 UNITS/10 ML Vial (for IV use) IV.PUSH PRN (00:31)
[2018-02-01] MEDS ORDERED: Chlorhexidine Gluconate 2% 1 Pack (2 Cloths) TOPICAL PRN (04:00)
[2018-02-01 05:02] LABS: Bilirubin,Urine Negative (Negative); Clarity,Urine Clear (Clear); Color,Urine Straw (Yellw/Straw); Glucose,Urine (UA) Negative (Negative); Leukocyte Esterase,Urine Negative (Negative); Mucus,Urine Few /lpf (Occasional); Nitrite,Urine Negative (Negative); Specific Gravity,Urine 1.025 (1.002-1.035)
[2018-02-01 05:30] LABS: Baso % (Auto) 0.2 % (0.0-2.0); Hematocrit 36.9 % (35.0-46.0); Hemoglobin 12.6 gm/dL (11.6-15.3); Lymph # (Auto) 1.2 th/mm3 (1.0-4.8); Lymph % (Auto) 14.5 % (9.0-44.0); Mean Corpuscular HGB Conc 34.3 % (32.0-36.0); Mean Platelet Volume 6.3 fL (7.0-11.0); Mono # (Auto) 0.2 th/mm3 (0.0-0.9); Mono % (Auto) 2.9 % (0.0-8.0); Neut # (Auto) 6.9 th/mm3 (1.8-7.7); Neut % (Auto) 82.4 % (16.0-70.0); Platelet Count 367 th/mm3 (150-450); Red Blood Count 3.72 mil/mm3 (4.00-5.30); Red Cell Distribution Width 14.3 % (11.6-17.2); White Blood Count 8.4 th/mm3 (4.0-11.0)
[2018-02-01] MEDS: Chlorhexidine Gluconate 2% 1 Pack (2 Cloths) TOPICAL SCH (05:33)
[2018-02-01 05:45] LABS: Albumin 3.5 g/dL (3.4-5.0); Anion Gap 12 meq/L (5-15); Blood Urea Nitrogen 14 mg/dL (7-18); Calcium 8.5 mg/dL (8.5-10.1); Carbon Dioxide 22.8 meq/L (21.0-32.0); Chloride 97 meq/L (98-107); Glomerular Filtration Rate Greater Than 89 mL/min (>89); Glucose,Random 124 mg/dL (74-106); Potassium 3.9 meq/L (3.5-5.1); Sodium 132 meq/L (136-145)
[2018-02-01 05:47] LABS: Alanine Aminotransferase 58 U/L (10-53); Aspartate Aminotransferase 85 U/L (15-37)
[2018-02-01 05:50] LABS: Alkaline Phosphatase 108 U/L (45-117); Total Protein 7.2 g/dL (6.4-8.2)
[2018-02-01 06:14] LABS: Troponin I 2.13 ng/mL (0.02-0.05)
[2018-02-01] MEDS ORDERED: Sod Chloride 0.9% Inj 1,000 ML IV.SIG ONE (07:25)
--- NOTE | 2018-02-01 07:47 | P.HPCC ---
History of Present Illness Primary Care Physician: Lucy Knight MD Chief Complaint: Shortness of breath, Chest pain History of Present Illness: 52-year-old female who presented to [facility] ER on 01/31 with shortness of breath along with cough and chest pain. She has a prior history of tongue cancer status post partial resection in 2007 followed by chemotherapy and radiation at the time. She has a G-tube for tube feedings since then however cannot drink water. She has had previous episodes of aspiration pneumonia. She reports that she was diagnosed to have a low ejection fraction on the stress test previously years ago however is unclear regarding details. Patient was evaluated in the ER and was hypotensive. She had a femoral central line placed and was started on dopamine for pressor support. EKG had some ST-T changes suspicious for ischemia and she did have an elevated troponin. Dr. marte from cardiology was consulted and advised starting heparin GTT. Patient did receive aspirin in the ER. She was admitted to CVICU where I have evaluated her this morning. She is laying in bed on nasal cannula currently. Denies any chest pain or nausea or abdominal pain. She is a little short of breath however does not appear to be in any acute distress. Patient is on a heparin drip currently and dopamine 3 mics per KG per minute. She denies any fevers or chills. Denies any hemoptysis. Denies any nausea vomiting or diarrhea. CT a pulmonary angiogram done last night was negative for PE. Inpatient Certification: I certify that the inpatient services were ordered in accordance with Medicare regulations governing the order. This includes certification that hospital inpatient services are reasonable and necessary and in the case of services not specified as inpatient-only under 42 CFR 419.22(n), that they are appropriately provided as inpatient services in accordance to with the 2-midnight benchmark under 43 CFR 412.3(e) Estimated Total Length of Stay (Days): 5 Plans for Post Hospital Care: Not yet determined Review of Systems All other systems reviewed negative except as stated in HPI PMFSH - History History Provided By: Patient - Medical History Medical History: Medical History (Last Updated 02/01/18 @ 07:40 by Mono Muse MD) COPD (chronic obstructive pulmonary disease) Environmental allergies HPV in female History of aspiration pneumonia Hx of hysterectomy Hypotension Mouth cancer Restless leg Tongue cancer Uses feeding tube - Surgical History Surgical History: Surgical History (Last Updated 01/31/18 @ 16:59 by Celina Knight RN) Hx of cholecystectomy - Tobacco History Second Hand Smoke Exposure: No Tobacco Use In Past 30 Days: No Smoking Status: Former smoker - Alcohol History How Often Do You Have a Drink Containing Alcohol: Monthly or less - Substance Use History Substance History: Active Abuse - Substance Use Type Marijuana Status: Active Route Used: Inhalation Frequency: daily - Immunization History Tetanus Immunization: >5 Years Hx Influenza Vaccine This Season: Yes Medications and Allergies Active Medications: Active Medications Acetaminophen (Tylenol) 650 mg PO Q6H PRN PRN Reason: PAIN 1-10 AND/OR FEVER >101F Al Hydroxide/Mg Hydroxide (Milk Of Nubia Liq) 30 ml PO Q12H PRN PRN Reason: Mild Constipation Albuterol (Albuterol Neb (Prn)) 2.5 mg NEB Q2HR NEB PRN PRN Reason: SHORTNESS OF BREATH/WHEEZING Albuterol (Duoneb Neb (Williams)) 1 ampul NEB Q6HR NEB [facility] Last Admin: 02/01/18 03:27 Dose: 1 ampul Bisacodyl (Dulcolax Supp) 10 mg RECTAL DAILY PRN PRN Reason: SEVERE CONSITIPATION Budesonide/Formoterol Fumarate (Symbicort 160/4.5 Mcg Inh) 2 puff INH BID [facility] Chlorhexidine Gluconate (Chlorhexidine 2% Cloth) 3 pack TOPICAL DAILY@0400 [facility] Stop: 02/06/18 03:59 Last Admin: 02/01/18 05:33 Dose: 3 pack Chlorhexidine Gluconate (Chlorhexidine 2% Cloth) 3 pack TOPICAL DAILY@0400 PRN PRN Reason: Extra cloth needed Stop: 02/06/18 03:59 Heparin Sodium (Porcine) (Heparin Inj) 5,000 units IV.PUSH UNSCH PRN PRN Reason: aPTT < 25 Sodium Chloride (Ns Inj) 1,000 mls @ 0 mls/hr IV.SIG BOLUS [facility] Stop: 02/01/18 17:16 Last Infusion: 01/31/18 19:09 Dose: 0 mls/hr Heparin Sodium/Dextrose (Heparin/D5w 25,000 U/250 Ml) 25,000 unit in 250 mls @ 0 mls/hr IV.CONT TITRATE PRN; Protocol PRN Reason: Per Protocol Last Admin: 01/31/18 19:06 Dose: 500 units/hr, 5 mls/hr Dopamine HCl/Dextrose (Dopamine 400 Mg/250 Ml Premix) 400 mg in 250 mls @ 4.95 mls/hr IV.CONT TITRATE PRN; Protocol PRN Reason: Per Protocol Last Admin: 01/31/18 20:45 Dose: 3 mcg/kg/min, 4.95 mls/hr Lactulose (Lactulose Liq) 30 ml PO DAILY PRN PRN Reason: SEVERE CONSITIPATION Methylprednisolone Sodium Succinate (Solumedrol Inj) 80 mg IV.PUSH Q8HR [facility] Ondansetron HCl (Zofran Inj) 4 mg IV.PUSH Q6H PRN PRN Reason: NAUSEA OR VOMITING Pantoprazole Sodium (Protonix Inj) 40 mg IV.PUSH DAILY [facility] Paroxetine HCl (Paxil) 20 mg PO DAILY [facility] Pilocarpine HCl (Salagen) 7.5 mg PO TID [facility] Pramipexole Dihydrochloride (Mirapex) 0.5 mg PO QPM [facility] Senna/Docusate Sodium (Pauline-Colace) 1 tab PO BID [facility] Sennosides (Senokot) 17.2 mg PO Q12H PRN PRN Reason: Moderate Constipation Sodium Chloride (Ns Flush) 2 ml IV.FLUSH BID [facility] Sodium Chloride (Ns Flush) 2 ml IV.FLUSH PRN PRN PRN Reason: FLUSH AFTER USING IV ACCESS Terbutaline Sulfate (Brethine Inj) 1 mg SQ ONCE PRN PRN Reason: Extravasation Allergies Allergy/AdvReac Type Severity Reaction Status Date / Time moxifloxacin Allergy Severe Shortness Verified 01/31/18 16:36 of Breath penicillin G Allergy Severe SHORT OF Verified 01/31/18 16:36 BREATH tramadol Allergy Severe SHORT OF Verified 01/31/18 16:36 BREATH Home Medications Medication Instructions Recorded Confirmed Type bisoprolol fumarate 2.5 mg PO DAILY 01/31/18 01/31/18 History fluticasone-salmeterol [Advair 1 inh INHALATION BID 01/31/18 01/31/18 History Diskus] loratadine 10 mg PO DAILY 01/31/18 01/31/18 History pantoprazole 40 mg PO DAILY 01/31/18 01/31/18 History paroxetine HCl 20 mg PO DAILY 01/31/18 01/31/18 History pilocarpine HCl 7.5 mg PO TID 01/31/18 01/31/18 History pramipexole 0.5 mg PO QPM 01/31/18 01/31/18 History tiotropium bromide [Spiriva with 1 cap INHALATION DAILY 01/31/18 01/31/18 History HandiHaler] Results - Labs CBC & Chem 7: 02/01/18 04:55 02/01/18 04:55 Labs: Short CBC 01/31/18 02/01/18 Range/Units 17:22 04:55 WBC 14.2 H 8.4 (4.0-11.0) th/mm3 Hgb 14.3 12.6 (11.6-15.3) gm/dL Hct 41.5 36.9 (35.0-46.0) % Plt Count 432 367 (150-450) th/mm3 BMP 01/31/18 02/01/18 17:22 04:55 Sodium 130 L 132 L Potassium 4.3 3.9 Chloride 96 L 97 L Carbon Dioxide 23.2 22.8 BUN 11 14 Creatinine 0.78 0.65 Calcium 9.5 8.5 D Cardiac Enzymes 01/31/18 02/01/18 02/01/18 Range/Units 17:22 01:00 04:55 Total Creatine Kinase 202 H (26-192) U/L CK-MB (CK-2) 14.6 H (0.5-3.6) ng/mL Troponin I 4.08 H* 2.25 H* D 2.13 H* D (0.02-0.05) ng/mL Liver Function 01/31/18 02/01/18 Range/Units 17:22 04:55 Total Bilirubin 0.5 0.5 (0.2-1.0) mg/dL AST 42 H 85 H (15-37) U/L ALT 24 58 H (10-53) U/L Alkaline Phosphatase 97 108 (45-117) U/L Albumin 4.0 3.5 (3.4-5.0) g/dL Urine 02/01/18 Range/Units 03:05 Urine Color Straw (Yellw/Straw) Urine Clarity Clear (Clear) Urine pH 6.0 (5.0-8.5) Ur Specific [place] 1.025 (1.002-1.035) Urine Protein Negative (Neg-Trace) mg/dL Urine Glucose (UA) Negative (Negative) mg/dL - Imaging Impressions Chest X-Ray 01/31/18 17:09 CONCLUSION: Trace pleural fluid. Possible residual right middle lobe atelectasis. Lateral view not available. Chest CTA 01/31/18 19:21 CONCLUSION: 1. Negative for pulmonary embolus. 2. Fairly extensive peribronchial thickening bilaterally with mild bronchiectasis and distal airway disease. Partial atelectasis of the right middle lobe associated with peribronchial thickening of the right middle lobe segmental bronchi. 3. Moderate emphysema. Gastrostomy tube present. Mild coronary calcifications. Exam Vital signs: Vital Signs 01/31/18 16:29 01/31/18 16:40 01/31/18 18:00 Temperature 97.4 F L Pulse Rate 121 H 122 H 110 H Respiratory Rate 16 18 22 Blood Pressure 98/74 L 98/82 L 92/73 L Pulse Oximetry 100 99 98 01/31/18 18:10 01/31/18 18:44 01/31/18 19:05 Temperature Pulse Rate 109 H 111 H 113 H Respiratory Rate 28 H 18 18 Blood Pressure 82/52 L 92/75 L Pulse Oximetry 100 100 01/31/18 19:30 01/31/18 20:30 01/31/18 20:45 Temperature Pulse Rate 106 H 114 H Respiratory Rate 18 20 Blood Pressure 92/75 L 102/70 Pulse Oximetry 99 98 01/31/18 21:26 01/31/18 22:00 01/31/18 22:10 Temperature 98 F Pulse Rate 110 H 112 H 110 H Respiratory Rate 20 18 Blood Pressure 83/60 L 91/72 L Pulse Oximetry 97 97 01/31/18 23:00 02/01/18 03:00 02/01/18 03:26 Temperature 98.2 F Pulse Rate 112 H 107 H 109 H Respiratory Rate 20 16 18 Blood Pressure 103/74 116/85 Pulse Oximetry 97 99 02/01/18 04:33 Temperature Pulse Rate 102 H Respiratory Rate Blood Pressure Pulse Oximetry Intake & Output 01/31/18 02/01/18 02/01/18 18:59 06:59 18:59 Intake Total 1400 / 1400 340 / 340 Output Total 1100 / 1100 Balance 1400 / 1400 -760 / -760 Weight 44 kg 43.5 kg Intake: IV 1400 / 1400 50 / 50 Cleocin 600 mg/NS Premix 600 mg 50 / 50 In 50 ml @ 100 mls/hr IV.SIG ONCE STA Rx#:[id number] NS Inj 1,000 ML @ Wide Open IV. 1399 / 1399 SIG BOLUS [facility] Rx#:[id number] Oral 240 / 240 Tube Irrigant 50 / 50 Output: Urine 500 / 500 Urine Amount (Catheter) 600 / 600 Indwelling Urethral Catheter 600 / 600 Other: # Voids 1 Narrative: HEENT/Neuro: No pallor or icterus, mucosa moist, LUCI, Awake alert oriented 3 , nonfocal grossly, moving all 4 extremities Neck: No JVD Chest/pulmonary: Good air entry bilaterally, scattered rhonchi, no wheezing or crackles. Cardiovascular: S1-S2 regular no gallop or murmur GI/abdomen: Soft, nontender, bowel sounds present Extremities: Warm bilaterally, no edema Caprini VTE Risk Assessment Caprini VTE Risk Assessment: Moderate/High Risk (score >= 2) Caprini Risk Assessment Model: Point Value = 1 Point Value = 2 Point Value = 3 Point Value = 5 Age 41-60 Minor surgery BMI > 25 kg/m2 Swollen legs Varicose veins or History of unexplained or recurrent spontaneous Oral contraceptives or hormone replacement Sepsis (< 1 month) Serious lung disease, including pneumonia (< 1 month) Abnormal pulmonary function Acute myocardial infarction Congestive heart failure (< 1 month) History of inflammatory bowel disease Medical patient at bed rest Age 61-74 Arthroscopic surgery Major open surgery (> 45 min) Laparoscopic surgery (> 45 min) Malignancy Confined to bed (> 72 hours) Immobilizing plaster cast Central venous access Age >= 75 History of VTE Family history of VTE Factor V Leiden Prothrombin [id number] Lupus anticoagulant Anticardiolipin antibodies Elevated serum homocysteine Heparin-induced thrombocytopenia Other congenital or acquired thrombophilia Stroke (< 1 month) Elective arthroplasty Hip, pelvis, or leg fracture Acute spinal cord injury (< 1 month) Prophylaxis Regimen: Total Risk Factor Score Risk Level Prophylaxis Regimen 0-1 Low Early ambulation 2 Moderate Order ONE of the following: *Sequential Compression Device (SCD) *Heparin 5000 units SQ BID 3-4 Higher Order ONE of the following medications: *Heparin 5000 units SQ TID *Enoxaparin/Lovenox 40 mg SQ daily (WT < 150 kg, CrCl > 30 mL/min) *Enoxaparin/Lovenox 30 mg SQ daily (WT < 150 kg, CrCl > 10-29 mL/min) *Enoxaparin/Lovenox 30 mg SQ BID (WT < 150 kg, CrCl > 30 mL/min) AND/OR *Sequential Compression Device (SCD) 5 or more Highest Order ONE of the following medications: *Heparin 5000 units SQ TID (Preferred with Epidurals) *Enoxaparin/Lovenox 40 mg SQ daily (WT < 150 kg, CrCl > 30 mL/min) *Enoxaparin/Lovenox 30 mg SQ daily (WT < 150 kg, CrCl > 10-29 mL/min) *Enoxaparin/Lovenox 30 mg SQ BID (WT < 150 kg, CrCl > 30 mL/min) AND *Sequential Compression Device (SCD) Assessment and Plan - Assessment and Plan Plan: 52-year-old female with: Acute respiratory failure Hypotension Chest pain Non-ST elevation ME COPD with probable exacerbation Bronchiectasis History of tongue cancer Plan: Neuro: Follow neuro status. Continue Mirapex. Cardiovascular: On dopamine for hypotension. Continue aspirin and heparin. Awaiting 2D echo. Cardiology consulted and patient will be evaluated by Dr. Rizzo. Pulmonary: Bronchodilators, IV Solu-Medrol. Supplemental O2. CT chest negative for PE and has evidence of bronchiectasis. GI/liver: N.p.o. for now. G-tube for tube feeds if no cardiac cath planned for today. Renal/: IV hydration, strict intake output, monitor and replete electrodes, follow BUN/creatinine. 1 L normal saline bolus ordered now for hypotension as BNP is not elevated. ID: Hold off on antibiotics at this time. Endocrine: SSI for glycemic control as needed Heme: Follow CBC. On anticoagulation with heparin per cardiology. Prophylaxis: PPI/SCDs. On full anticoagulation with heparin Condition critical Time spent on critical care excluding procedures 40 minutes
[2018-02-01] MEDS: Pantoprazole Inj 40 MG Vial IV.PUSH SCH (09:18)
[2018-02-01] MEDS: Senna/Docusate Sodium 8.6/50 MG Tablet PO SCH ×2 (09:19→21:07)
[2018-02-01] MEDS: Pilocarpine HCl 5 MG Tablet PO SCH ×3 (09:19→17:39)
[2018-02-01] MEDS: MethylPREDNISolone Sod Succinate Inj 40 MG/ML Vial IV.PUSH SCH ×3 (09:21→21:13)
[2018-02-01] MEDS: Budesonide-Formoterol 160/4.5 MCG 6 GM Inhaler INH SCH ×2 (09:28→21:07)
[2018-02-01] MEDS ORDERED: fentaNYL Citrate Inj 100 MCG/2 ML Ampul ONE (12:16)
[2018-02-01] MEDS ORDERED: Heparin/NS PF Inj 1,000 ML ONE (12:16)
--- NOTE | 2018-02-01 12:59 | ECHRPT ---
Indication: SHORT OF BREATH CONCLUSIONS Severely dilated left ventricle. Wall thickness is normal. The left ventricular systolic function is severely reduced with an estimated ejection fraction of 25 %. Distal anteroseptal and apical akinesis. Trace mitral valve regurgitation. There is mild tricuspid valve regurgitation. The estimated pulmonary arterial pressure is 53 mmHg. BP: / HR: Rhythm: MEASUREMENTS (Male / Female) Normal Values Technical Quality: 2D ECHO LV Diastolic Diameter PLAX 5.2 cm 4.2 - 5.9 / 3.9 - 5.3 cm LV Systolic Diameter PLAX 4.7 cm IVS Diastolic Thickness 0.8 cm 0.6 - 1.0 / 0.6 - 0.9 cm LVPW Diastolic Thickness 0.8 cm 0.6 - 1.0 / 0.6 - 0.9 cm LV Relative Wall Thickness 0.3 RV Internal Dim ED PLAX 1.2 cm LVOT Diameter 1.7 cm Aortic Root Diameter 2.4 cm LV Ejection Fraction MOD BP 19.1 % >= 55 % LV Ejection Fraction MOD 4C 20.9 % LV Ejection Fraction 4C AL 20.3 % LV Ejection Fraction MOD 2C 8.2 % LV Ejection Fraction 2C AL 1.2 % M-MODE Aortic Root Diameter MM 3.1 cm LA Systolic Diameter MM 2.7 cm LA Ao Ratio MM 0.9 AV Cusp Separation MM 1.4 cm DOPPLER AV Peak Velocity 128.0 cm/s AV Peak Gradient 6.6 mmHg LVOT Peak Velocity 75.0 cm/s LVOT Peak Gradient 2.3 mmHg AV Area Cont Eq pk 1.3 cm Mitral E Point Velocity 74.5 cm/s Mitral A Point Velocity 62.2 cm/s Mitral E to A Ratio 1.2 LV E' Lateral Velocity 8.9 cm/s Mitral E to LV E' Lateral Ratio 8.4 LV E' Septal Velocity 7.3 cm/s Mitral E to LV E' Septal Ratio 10.2 TV Peak Velocity 339.0 cm/s TR Peak Velocity 326.0 cm/s TR Peak Gradient 42.5 mmHg Right Atrial Pressure 10.0 mmHg Pulmonary Artery Systolic Pressu 52.5 mmHg Right Ventricular Systolic Press 52.5 mmHg PV Peak Velocity 99.1 cm/s PV Peak Gradient 3.9 mmHg FINDINGS LEFT VENTRICLE Severely dilated left ventricle. Wall thickness is normal. The left ventricular systolic function is severely reduced with an estimated ejection fraction of 25 %. There is diffuse global hypokinesis with distinct regional wall motion abnormalities. RIGHT VENTRICLE Normal right ventricular size and systolic function. LEFT ATRIUM The left atrial size is normal. RIGHT ATRIUM The right atrial size is normal. ATRIAL SEPTUM Normal atrial septal thickness without atrial level shunting by limited color doppler interrogation. AORTA The aortic root and proximal ascending aorta are normal in size on limited imaging. MITRAL VALVE Trace mitral valve regurgitation. AORTIC VALVE Trileaflet aortic valve. No aortic valve stenosis or regurgitation. TRICUSPID VALVE There is mild tricuspid valve regurgitation. The estimated pulmonary arterial pressure is 53 mmHg. PULMONARY VALVE No pulmonary valve regurgitation or stenosis. VESSELS The inferior vena cava is normal in size. PERICARDIUM No pericardial effusion. Kennedi Rizzo MD, FACC (Electronically Signed) Final Date:01 February 2018 12:58
--- NOTE | 2018-02-01 13:43 | CATHPROC ---
[employer] HIS Report Study Information Study Number Admission Scheduled Start Study Start [id number] Jan 31 2018 7:22PM 02/01/2018 Feb 01 2018 12:05PM [place] [facility] Cardiac Catheterization Admit Source Facility Department Emergency department [facility] Physician and Clinical Staff Initial Kennedi Richardson Boat Officer Deborah Patel,RIANNA Recorder Lavern Saxena,(R) (BS) Scrub Paty Peters RCIS TECH2 Procedures Performed Procedure Location (Site) Vessel Name Angiogram LV LV Ventricle Coronary Angiograms LCA Left Coronary Coronary Angiograms RCA Right Coronary L Heart Cath Equipment Time 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 Description Size Mfg Part Number Used/Scraped TRANSDUCER, TRUWAVE [id number] 12:06 5by RAMOS * Used W/STOCKCOCK *[id number] 13:23 [employer] MEDICAL VASCADE, FR5 CLOSURE SYSTEM FR 5 Used *[id number] [id number] *[id number] 534-520T *[id number] [id number] *[id number] 12:06 [employer] BLANKET,WARM AIR CCL * Used *[id number] 12:06 [employer] PACK, CCL CUSTOM * Used *[id number] 12:06 [employer] PACER PEN, SKIN DUAL W/ RULER * Used *[id number] 12:06 [employer] WIRE, 3MMJ .035 180CM 180CM Used *[id number] PROBE COVER, STERILE [id number] 12:06 [employer] * Used ULTRASOUND W/ GEL *[id number] 12:06 NAMIC MANIFOLD, 4 PORT * Used *[id number] 12:06 NAMIC TUBING, HIGH PRESSURE 48" 48" Used *[id number] 12:38 NAM[employer] TUBING, HIGH PRESSURE 48" 48" Used *[id number] 12:06 [employer] OMNIPAQUE, 350 MG, 150ML 150ML [id number] Used [id number] 12:06 [employer] MEDICAL SHEATH, FR5 TERUMO (10CM) FR 5 Used *[id number] History: Current Medications Medication Dosage/Unit Route Frequency Last Date/Time Taken ASA HEPARIN History: Allergies Allergy Reaction Avelox Shortness of Breath Penicillin SHORT OF BREATH tramadol SHORT OF BREATH penicillin G SHORT OF BREATH moxifloxacin Shortness of Breath History: Risk Factors Family History of Hypertension Dyslipidemia Previous DE Previous Heart Failure Premature CAD Yes No Yes No No Prior Valve Prior PCI Prior CABG Surgery No No No Cerebrovascular Peripheral Artery Chronic Lung On Dialysis Diabetes Disease Disease Disease No No No Yes No History: Symptoms/Diagnosis Selection Items Chest pain History: Stress Tests Stress or Imaging Studies Performed Yes Standard Exercise Stress Test No Stress Echo No Stress Test SPECT Stress Test SPECT Result Yes Positive Stress Test CMR No Cardiac CTA Coronary Calcium Score No No History: Other Current Smoker Method Quit Packs a Day Years Used Pack Years No Cigarettes 10 Years Ago 1 22 Labs Hgb (g/dl) Hct (%) WBC (l/cumm) Platelets (thousands) 11.60-17.00 35.00-51.00 4.00-11.00 150.00-450.00 12.6 36.9 8.4 367 Glucose (mg/dl) BUN (mg/dl) Creatinine (mg/dl) BUN:Creatinine (1:x) 74.00-106.00 7.00-18.00 0.50-1.30 10.00-20.00 124 14 0.6 23.3 Na (meq/l) K (meq/l) 136.00-145.00 3.50-5.10 132 3.4 INR (PTT:PT) 0.90-1.10 1 Troponin I (ng/ml) CPK (u/l) CPK-MB (ng/ML) 0.02-0.05 26.00-308.00 0.50-3.60 2.13 202 2.2 Medication Medication Total Dose (Bolus/Oral) Medication Total Dosage/Unit 1% XYLOCAINE 20 mL FENTANYL 50 mcg VERSED 3 mg Medications (Bolus/Oral) Medication Time Given Dosage/Unit Administered By Reason VERSED 02/01/2018 12:37:51 PM 1 mg Hesher, Deborah 1 mg VERSED given in lab by Deborah Patel RN in Right Groin via Central IV. FENTANYL 02/01/2018 12:38:46 PM 25 mcg Myher, Deborah 25 mcg FENTANYL given in lab by Deborah Patel, RIANNA in Right Groin via Central IV. VERSED 02/01/2018 12:43:30 PM 1 mg Hesher, Deborah 1 mg VERSED given in lab by Deborah Patel RN in Right Groin via Central IV. FENTANYL 02/01/2018 12:44:35 PM 25 mcg Deborah Patel 25 mcg FENTANYL given in lab by Deborah Patel, RIANNA in Right Groin via Central IV. VERSED 02/01/2018 1:02:10 PM 1 mg Deborah Patel 1 mg VERSED given in lab by Deborah Patel, RIANNA in Right Groin via Central IV. 1% XYLOCAINE 02/01/2018 1:06:15 PM 20 mL Kennedi Rizzo 20 mL 1% XYLOCAINE given in lab by Kennedi Rizzo in Left Groin via Subcutaneous. Medication (Drip) Medication Time Given Dosage/Unit Concentration/Unit Diluent (ml) Solution DOPAMINE HCL 02/01/2018 12:20:33 PM 4.5 mcg/kg/min 800 mg 500 D5W Patient arrived on 4.5 mcg/kg/min DOPAMINE HCL via Peripheral IV. Pump/Drip Flow = 7.34 ml/hr using D 5W with a concentration of 800 mg in 500 ml. HEPARIN DRIP STOPPED 02/01/2018 12:30:29 PM 0 units/hr 0 0 units/hr HEPARIN DRIP STOPPED given in lab by Deborah Patel, RN. Pump/Drip Flow = 0 ml/hr using [S olution Name]. IV Solutions 02/01/2018 12:20:50 PM 0 mL (IV) 500 NaCl .9 Patient arrived on IV Solutions via Peripheral IV. Pump/Drip Flow = 30 ml/hr using NaCl .9. Initial Case Assessment Cardiovascular HR Rhythm NIBP Chest Pain 109 tachy 105/79 0 Edema Present Skin color Skin None Normal Warm Dry Circulatory - Left Pulses Circulatory - Lower Extremities Color Lower Right Color Lower Left Normal Normal Neurological State Oriented to time-place- Alert Moves all extremities person Respiration - General Respiration Rate SpO2 (%) O2 (lpm) (B/min) 20 96 2 Chronological Log Time Study Chronological Log 12:20:30 Patient arrived via Bed. 12:20:31 Patient Name, D.O.B, / Armband Verified By R.N. 12:20:32 Consent signed by the physician and the patient and verified by the [facility] staff. Patient arrived on 4.5 mcg/kg/min DOPAMINE HCL via Peripheral IV. Pump/Drip Flow = 7.34 ml/hr u sing D5W with a 12:20:33 concentration of 800 mg in 500 ml. 12:20:33 Pre-op and post- op instructions given; patient acknowledges understanding of instructions. 12:20:35 Presedation assessment performed by [facility] RN. 12::38 Patient has been NPO for More than 6Hrs. 12:20:41 Skin Breakdown none per pt 12:20:42 Patient Warmer Placed on the Table. 12:20:48 A # 20 IV was noted in the Wrist (right). Grade = 0 12:20:48 A central line was noted in the Groin (right). 12:20:50 Patient arrived on IV Solutions via Peripheral IV. Pump/Drip Flow = 30 ml/hr using NaCl .9. 12:20:51 History and physical on the chart or being dictated. Assessment: Initial Case, SD=269 BPM, Rhythm=tachy, NNRW=935/79 mmhg, Chest Pain=0, Edema=None, Color=Normal, Skin = Warm, Dry Left Pulses: Cesar Ped=1, Femoral=1 12:20:52 Lower Right Extremities: Color=Normal Lower Left Extremities: Color=Normal Neurological: State=Alert, Ox3, CANALES Respiration: Resp=20 B/min, SpO2=96 %, O2=2 lpm Vitals capture started with the following parameters, Patient=Adult, Interval=5 min, Initial Pr vrskmu=638 mmHg, 12::22 Deflation Rate=5 mmHg, Cuff placed on Left Arm 12::35 Vitals capture stopped. Vitals capture started with the following parameters, Patient=Adult, Interval=5 min, Initial Pr zmbvlg=097 mmHg, ::38 Deflation Rate=5 mmHg, Cuff placed on Left Arm 12:27:18 LM=571 bpm, NMFX=762/79 mmhg, SpO2=97.0 %, Pain=0, Chuckie=10, Demarco=2 0 units/hr HEPARIN DRIP STOPPED given in lab by Deborah Patel, RN. Pump/Drip Flow = 0 ml/hr us ing [Solution 12:30:29 Name]. 12:31:57 Reference ECG taken 12:32:07 GK=188 bpm, ADFR=204/78 mmhg, SpO2=98.0 %, Resp=20 B/min, Pain=0, Chuckie=10, Demarco=2 12:36:03 Left groin prepped with 2% chlorhexidine, and draped after a 3 min. waiting time. 12:37:06 RY=768 bpm, SWPP=119/79 mmhg, SpO2=98.0 %, Resp=20 B/min, Pain=0, Chuckie=10, Demarco=2 12:37:51 1 mg VERSED given in lab by Deborah Patel RN in Right Groin via Central IV. 12:38:46 25 mcg FENTANYL given in lab by Deborah Patel RN in Right Groin via Central IV. 12:41:54 MD paged 12:42:07 GX=965 bpm, GVIY=584/70 mmhg, SpO2=96.0 %, Resp=16 B/min, Pain=0, Chuckie=10, Demarco=2 12:43:30 1 mg VERSED given in lab by Deborah Patel RN in Right Groin via Central IV. 12:44:35 25 mcg FENTANYL given in lab by Deborah Patel RN in Right Groin via Central IV. 12:45:15 Pressure channel 1 zeroed. 12:47:06 ZB=028 bpm, NIBP=96/75 mmhg, SpO2=89.0 %, Resp=13 B/min, Pain=0, Chuckie=10, Demarco=2 12:52:05 RY=899 bpm, NIBP=96/73 mmhg, SpO2=99.0 %, Resp=13 B/min, Pain=0, Chuckie=10, Demarco=2 12:53:32 MD arrived 12:57:06 IO=056 bpm, NIBP=93/69 mmhg, SpO2=99.0 %, Resp=14 B/min, Pain=0, Chuckie=10, Demarco=2 13:02:05 OB=193 bpm, NIBP=93/69 mmhg, SpO2=99.0 %, Resp=15 B/min, Pain=0, Chuckie=10, Demarco=2 13:02:10 1 mg VERSED given in lab by Deborah Patel RN in Right Groin via Central IV. Time Out. Correct patient, correct procedure, correct physician, labs, allergies, and equipment verified with catheterization laboratory technician 13:05:09 team present. Fire risk assesment completed (see hard stop sheet for coding). Time Out Conc urred by and individual staff in procedure. 13:05:31 Case Start 13:06:15 20 mL 1% XYLOCAINE given in lab by Kennedi Rizzo in Left Groin via Subcutaneous. 13:06:58 Access site was Left Femoral Artery using ultrasound 13:07:08 HR=98 bpm, NIBP=88/67 mmhg, SpO2=99.0 %, Resp=22 B/min, Pain=0, Chuckie=10, Demarco=2 13:07:18 A SHEATH, FR5 TERUMO (10CM) FR 5 was advanced into the Fem Art (left) using the Percutaneou s technique. 13:07:39 Activated Clotting Time Drawn A PIGTAIL ANG. INFINITI CATHETER FR 5 was advanced over a wire. OMNIPAQUE, 350 MG, 150ML 150ML was used 13:07:51 for injections. Recorded Pressure: LV, GE=931, Condition=Condition 1 13:09:34 (Left Ventricle) LV 83/7/15 13:10:06 ACT (Normal Range 90-180) = 148 13:10:43 The LV was injected at 10 cc/sec for a total of 30. OMNIPAQUE, 350 MG, 150ML 150ML used. Recorded Pressure: LV, Ao, RD=971, Condition=Condition 1 13:11:16 (Left Ventricle) LV 86/13/18, (Aorta) Ao 89/65/77 13:12:04 Catheter was removed 13:12:07 DJ=071 bpm, NIBP=99/71 mmhg, SpO2=98.0 %, Resp=17 B/min, Pain=0, Chuckie=10, Demarco=2 A JL 4.0 INFINITI CATHETER FR 5 was advanced over a wire. OMNIPAQUE, 350 MG, 150ML 150ML was us ed for 13:12:12 injections. Recorded Pressure: Ao, KI=421, Condition=Condition 1 13:13:18 (Aorta) Ao 88/67/77 13:13:50 The LCA was injected and visualized at various angles. OMNIPAQUE, 350 MG, 150ML 150ML us ed. 13:14:57 Catheter was removed A AR MOD INFINITI CATHETER FR 5 was advanced over a wire. OMNIPAQUE, 350 MG, 150ML 150ML was used for 13:15:19 injections. 13:16:33 The RCA was injected and visualized at various angles. OMNIPAQUE, 350 MG, 150ML 150ML us ed. 13:17:08 KF=156 bpm, SMXV=797/75 mmhg, SpO2=97.0 %, Resp=14 B/min, Pain=0, Chuckie=10, Demarco=2 13:18:02 Catheter was removed 13:18:44 Case End (Physician broke scrub) 13:21:15 An injection in the Fem Art (left) was made through the SHEATH, FR5 TERUMO (10CM) FR 5. 13:22:11 OQ=461 bpm, CFMU=115/74 mmhg, SpO2=98.0 %, Resp=15 B/min, Pain=0, Chuckie=10, Demarco=2 13:24:38 Catheter(s) removed without difficulty 13:24:48 No case complications noted. 13:24:54 Bedside Report will be given. 13:24:57 Implantable Device card placed in patient's chart. 13:25:01 A Left Heart Cath was performed. VASCADE, FR5 CLOSURE SYSTEM FR 5 placement in the Fem Art (left). Vascade appeared to not dep cassandra correctly. 13:25:20 Holding pressure. 13:27:10 ZA=420 bpm, GFED=238/79 mmhg, SpO2=97.0 %, Resp=15 B/min, Pain=0, Hcuckie=10, Demarco=2 13:32:11 EX=717 bpm, HRSB=451/78 mmhg, SpO2=99.0 %, Resp=15 B/min, Pain=0, Chuckie=10, Demarco=2 13:37:10 KR=504 bpm, UBTH=722/80 mmhg, KkJ8=634.0 %, Resp=15 B/min, Pain=0, Chuckie=10, Demarco=2 13:40:58 Sterile dressing applied to site 13:41:56 Vitals capture stopped. 13:44:11 Patient moved to stretcher End Study - Contrast Media Used In Study Contrast Total Opened (mL) Total Used (mL) Total Wasted (mL) Omnipaque 70 70 0 End Study - Maximum Contrast Load Max Contrast Load (mL) 362.5 End Study - Radiation Exposure Fluoro Time (minutes) 1.3 End Study - Sheaths Sheaths Pulled By Sheath Hold Time (min) Paty Peters End Study - Patient Disposition Complications Transferred To Interventional Outcome No Critical Care Bed No attempt made
--- NOTE | 2018-02-01 14:10 | P.CONCA ---
History of Present Illness Service: Cardiology Consult date: 02/01/18 Requesting Physician: Frances Cordova Primary Care Provider: Lucy Knight MD Family Provider: Lucy Knight MD Chief Complaint: Shortness of breath, Chest pain History of Present Illness: This is a 52-year-old female with a history of tongue cancer status post partial resection in 2007 with chemo and radiation therapy, G-tube placement due to her inability to swallow water, aspiration pneumonia and low ejection fraction. She presented to [facility] emergency department on 920 with complaints of shortness of breath, cough and chest pain for 2 days. She was evaluated in the emergency department and found to be hypotensive, left femoral central line was placed and dopamine started for pressure support. Evaluation this morning shows that she is currently on dopamine at 4.5 mcg/kg/min along with a heparin drip at 500 units. Current cardiac enzymes are elevated. She currently denies any chest pain, pressure, palpitations, edema or dizziness. Does complain of mild shortness of breath that increases with exertion, she is currently on 1 L nasal cannula. Review of Systems All other systems reviewed negative except as stated in HPI PMFSH - History History Provided By: Patient - Medical History Medical History: Medical History (Last Updated 02/01/18 @ 07:40 by Mono Muse MD) COPD (chronic obstructive pulmonary disease) Environmental allergies HPV in female History of aspiration pneumonia Hx of hysterectomy Hypotension Mouth cancer Restless leg Tongue cancer Uses feeding tube - Surgical History Surgical History: Surgical History (Last Updated 01/31/18 @ 16:59 by Celina Knight RN) Hx of cholecystectomy - Tobacco History Second Hand Smoke Exposure: No Tobacco Use In Past 30 Days: No Smoking Status: Former smoker - Alcohol History How Often Do You Have a Drink Containing Alcohol: Monthly or less - Substance Use History Substance History: Active Abuse - Substance Use Type Marijuana Status: Active Route Used: Inhalation Frequency: daily - Immunization History Tetanus Immunization: >5 Years Hx Influenza Vaccine This Season: Yes Medications and Allergies Allergies Allergy/AdvReac Type Severity Reaction Status Date / Time moxifloxacin Allergy Severe Shortness Verified 01/31/18 16:36 of Breath penicillin G Allergy Severe SHORT OF Verified 01/31/18 16:36 BREATH tramadol Allergy Severe SHORT OF Verified 01/31/18 16:36 BREATH Home Medications Medication Instructions Recorded Confirmed Type bisoprolol fumarate 2.5 mg PO DAILY 01/31/18 01/31/18 History fluticasone-salmeterol [Advair 1 inh INHALATION BID 01/31/18 01/31/18 History Diskus] loratadine 10 mg PO DAILY 01/31/18 01/31/18 History pantoprazole 40 mg PO DAILY 01/31/18 01/31/18 History paroxetine HCl 20 mg PO DAILY 01/31/18 01/31/18 History pilocarpine HCl 7.5 mg PO TID 01/31/18 01/31/18 History pramipexole 0.5 mg PO QPM 01/31/18 01/31/18 History tiotropium bromide [Spiriva with 1 cap INHALATION DAILY 01/31/18 01/31/18 History HandiHaler] Active Medications: Active Medications Acetaminophen (Tylenol) 650 mg PO Q6H PRN PRN Reason: PAIN 1-10 AND/OR FEVER >101F Al Hydroxide/Mg Hydroxide (Milk Of Magnyesika Liq) 30 ml PO Q12H PRN PRN Reason: Mild Constipation Albuterol (Albuterol Neb (Prn)) 2.5 mg NEB Q2HR NEB PRN PRN Reason: SHORTNESS OF BREATH/WHEEZING Albuterol (Duoneb Neb (Williams)) 1 ampul NEB Q6HR NEB [facility] Last Admin: 02/01/18 09:50 Dose: 1 ampul Aspirin (Aspirin Chew) 81 mg G-TUBE DAILY [facility] Last Admin: 02/01/18 09:21 Dose: 81 mg Bisacodyl (Dulcolax Supp) 10 mg RECTAL DAILY PRN PRN Reason: SEVERE CONSITIPATION Budesonide/Formoterol Fumarate (Symbicort 160/4.5 Mcg Inh) 2 puff INH BID [facility] Last Admin: 02/01/18 09:28 Dose: Not Given Chlorhexidine Gluconate (Chlorhexidine 2% Cloth) 3 pack TOPICAL DAILY@0400 [facility] Stop: 02/06/18 03:59 Last Admin: 02/01/18 05:33 Dose: 3 pack Chlorhexidine Gluconate (Chlorhexidine 2% Cloth) 3 pack TOPICAL DAILY@0400 PRN PRN Reason: Extra cloth needed Stop: 02/06/18 03:59 Heparin Sodium (Porcine) (Heparin Inj) 5,000 units IV.PUSH UNSCH PRN PRN Reason: aPTT < 25 Sodium Chloride (Ns Inj) 1,000 mls @ 0 mls/hr IV.SIG BOLUS [facility] Stop: 02/01/18 17:16 Last Infusion: 01/31/18 19:09 Dose: 0 mls/hr Heparin Sodium/Dextrose (Heparin/D5w 25,000 U/250 Ml) 25,000 unit in 250 mls @ 0 mls/hr IV.CONT TITRATE PRN; Protocol PRN Reason: Per Protocol Last Admin: 01/31/18 19:06 Dose: 500 units/hr, 5 mls/hr Dopamine HCl/Dextrose (Dopamine 400 Mg/250 Ml Premix) 400 mg in 250 mls @ 4.95 mls/hr IV.CONT TITRATE PRN; Protocol PRN Reason: Per Protocol Last Titration: 02/01/18 11:17 Dose: 4.5 mcg/kg/min, 7.43 mls/hr Lactulose (Lactulose Liq) 30 ml PO DAILY PRN PRN Reason: SEVERE CONSITIPATION Methylprednisolone Sodium Succinate (Solumedrol Inj) 80 mg IV.PUSH Q8HR [facility] Last Admin: 02/01/18 09:21 Dose: 80 mg Ondansetron HCl (Zofran Inj) 4 mg IV.PUSH Q6H PRN PRN Reason: NAUSEA OR VOMITING Pantoprazole Sodium (Protonix Inj) 40 mg IV.PUSH DAILY [facility] Last Admin: 02/01/18 09:18 Dose: 40 mg Paroxetine HCl (Paxil) 20 mg PO DAILY [facility] Last Admin: 02/01/18 09:19 Dose: 20 mg Pilocarpine HCl (Salagen) 7.5 mg PO TID [facility] Last Admin: 02/01/18 09:19 Dose: 7.5 mg Pramipexole Dihydrochloride (Mirapex) 0.5 mg PO QPM [facility] Senna/Docusate Sodium (Pauline-Colace) 1 tab PO BID [facility] Last Admin: 02/01/18 09:19 Dose: 1 tab Sennosides (Senokot) 17.2 mg PO Q12H PRN PRN Reason: Moderate Constipation Sodium Chloride (Ns Flush) 2 ml IV.FLUSH BID [facility] Last Admin: 02/01/18 09:24 Dose: 2 ml Sodium Chloride (Ns Flush) 2 ml IV.FLUSH PRN PRN PRN Reason: FLUSH AFTER USING IV ACCESS Terbutaline Sulfate (Brethine Inj) 1 mg SQ ONCE PRN PRN Reason: Extravasation Exam Vital signs: Vital Signs 01/31/18 16:29 01/31/18 16:40 01/31/18 18:00 Temperature 97.4 F L Pulse Rate 121 H 122 H 110 H Respiratory Rate 16 18 22 Blood Pressure 98/74 L 98/82 L 92/73 L Pulse Oximetry 100 99 98 01/31/18 18:10 01/31/18 18:44 01/31/18 19:05 Temperature Pulse Rate 109 H 111 H 113 H Respiratory Rate 28 H 18 18 Blood Pressure 82/52 L 92/75 L Pulse Oximetry 100 100 01/31/18 19:30 01/31/18 20:30 01/31/18 20:45 Temperature Pulse Rate 106 H 114 H Respiratory Rate 18 20 Blood Pressure 92/75 L 102/70 Pulse Oximetry 99 98 01/31/18 21:26 01/31/18 22:00 01/31/18 22:10 Temperature 98 F Pulse Rate 110 H 112 H 110 H Respiratory Rate 20 18 Blood Pressure 83/60 L 91/72 L Pulse Oximetry 97 97 01/31/18 23:00 02/01/18 03:00 02/01/18 03:26 Temperature 98.2 F Pulse Rate 112 H 107 H 109 H Respiratory Rate 20 16 18 Blood Pressure 103/74 116/85 Pulse Oximetry 97 99 02/01/18 04:33 02/01/18 07:00 02/01/18 08:00 Temperature 98.6 F Pulse Rate 102 H 107 H Respiratory Rate 19 Blood Pressure 84/49 L Pulse Oximetry 99 96 02/01/18 09:51 02/01/18 11:00 Temperature 98.3 F Pulse Rate 115 H 115 H Respiratory Rate 20 22 Blood Pressure 91/72 L Pulse Oximetry 97 96 Intake & Output 01/31/18 02/01/18 02/01/18 18:59 06:59 18:59 Intake Total 1400 / 1400 340 / 340 1000 / 1000 Output Total 1100 / 1100 Balance 1400 / 1400 -760 / -760 1000 / 1000 Weight 44 kg 43.5 kg Intake: IV 1400 / 1400 50 / 50 1000 / 1000 Cleocin 600 mg/NS Premix 600 mg 50 / 50 In 50 ml @ 100 mls/hr IV.SIG ONCE STA Rx#:[id number] NS Inj 1,000 ML @ As Directed 1400 / 1400 1000 / 1000 IV.SIG BOLUS ONE Rx#:[id number] Oral 240 / 240 Tube Irrigant 50 / 50 Output: Urine 500 / 500 Urine Amount (Catheter) 600 / 600 Indwelling Urethral Catheter 600 / 600 Other: # Voids 1 - Constitutional no acute distress - Routine HEENT Exam Head: Present: normocephalic Eye: Present: PERRL ENT: Present: mucous membranes moist - Routine Neck Exam Present: full ROM - Routine Respiratory Exam Present: CTA bilaterally - Routine Cardiovascular Exam Present: S1, S2, tachycardia. Absent: murmur, gallop, rubs - Routine Abdominal Exam Present: normoactive bowel sounds - Routine Extremities Exam Present: full ROM, pulses intact, normal capillary refill. Absent: cyanosis, clubbing, edema - Detailed Extremities Exam: Vascular Peripheral pulses: 2+ dorsalis pedis (L), 2+ dorsalis pedis (R) - Routine Skin Exam Present: intact - Routine Neurological Exam Present: oriented X3 Results 02/01/18 04:55 02/01/18 04:55 Cardiac Enzymes 01/31/18 01/31/18 02/01/18 Range/Units 17:22 17:22 01:00 AST 42 H (15-37) U/L CK-MB (CK-2) 14.6 H (0.5-3.6) ng/mL Troponin I 4.08 H* 2.25 H* D (0.02-0.05) ng/mL B-Natriuretic Peptide 39 (0-100) pg/mL 02/01/18 Range/Units 04:55 AST 85 H (15-37) U/L CK-MB (CK-2) (0.5-3.6) ng/mL Troponin I 2.13 H* D (0.02-0.05) ng/mL B-Natriuretic Peptide (0-100) pg/mL Coagulation 01/31/18 01/31/18 02/01/18 Range/Units 17:22 17:22 00:40 PT 10.3 (9.8-11.6) sec APTT 29.3 64.8 H D (24.3-30.1) sec B-Natriuretic Peptide 39 (0-100) pg/mL 02/01/18 Range/Units 07:30 PT (9.8-11.6) sec APTT 56.1 H (24.3-30.1) sec B-Natriuretic Peptide (0-100) pg/mL CBC 01/31/18 02/01/18 Range/Units 17:22 04:55 WBC 14.2 H 8.4 (4.0-11.0) th/mm3 RBC 4.22 3.72 L (4.00-5.30) mil/mm3 Hgb 14.3 12.6 (11.6-15.3) gm/dL Hct 41.5 36.9 (35.0-46.0) % Plt Count 432 367 (150-450) th/mm3 Neut # (Auto) 9.9 H 6.9 (1.8-7.7) th/mm3 Lymph # (Auto) 3.0 1.2 (1.0-4.8) th/mm3 Wheeler # (Auto) 0.7 0.2 (0.0-0.9) th/mm3 Eos # (Auto) 0.1 0.0 (0.0-0.4) th/mm3 Baso # (Auto) 0.5 H 0.0 (0.0-0.2) th/mm3 Comprehensive Metabolic Panel 01/31/18 02/01/18 Range/Units 17:22 04:55 Sodium 130 L 132 L (136-145) meq/L Potassium 4.3 3.9 (3.5-5.1) meq/L Chloride 96 L 97 L (98-107) meq/L Carbon Dioxide 23.2 22.8 (21.0-32.0) meq/L BUN 11 14 (7-18) mg/dL Creatinine 0.78 0.65 (0.50-1.00) mg/dL Calcium 9.5 8.5 D (8.5-10.1) mg/dL AST 42 H 85 H (15-37) U/L ALT 24 58 H (10-53) U/L Alkaline Phosphatase 97 108 (45-117) U/L Total Protein 8.3 H 7.2 D (6.4-8.2) g/dL Albumin 4.0 3.5 (3.4-5.0) g/dL Intake and Output 01/31/18 02/01/18 02/01/18 22:59 06:59 14:59 Intake Total 1450 / 1450 290 / 290 1000 / 1000 Output Total 1100 / 1100 Balance 1450 / 1450 -810 / -810 1000 / 1000 Intake: IV 1450 / 1450 1000 / 1000 Cleocin 600 mg/NS Premix 600 mg 50 / 50 In 50 ml @ 100 mls/hr IV.SIG ONCE STA Rx#:[id number] NS Inj 1,000 ML @ As Directed 1400 / 1400 1000 / 1000 IV.SIG BOLUS ONE Rx#:[id number] Oral 240 / 240 Tube Irrigant 50 / 50 Output: Urine 500 / 500 Urine Amount (Catheter) 600 / 600 Indwelling Urethral Catheter 600 / 600 Other: # Voids 1 Weight 44 kg 43.5 kg - Imaging and Cardiology Imaging: Impressions Chest X-Ray 01/31/18 17:09 CONCLUSION: Trace pleural fluid. Possible residual right middle lobe atelectasis. Lateral view not available. Chest CTA 01/31/18 19:21 CONCLUSION: 1. Negative for pulmonary embolus. 2. Fairly extensive peribronchial thickening bilaterally with mild bronchiectasis and distal airway disease. Partial atelectasis of the right middle lobe associated with peribronchial thickening of the right middle lobe segmental bronchi. 3. Moderate emphysema. Gastrostomy tube present. Mild coronary calcifications. Assessment and Plan - Assessment (1) NSTEMI (non-ST elevated myocardial infarction) Code(s): I21.4 - Non-ST elevation (NSTEMI) myocardial infarction Status: Acute (2) Hypotension Code(s): I95.9 - Hypotension, unspecified Status: Acute (3) COPD (chronic obstructive pulmonary disease) Code(s): J44.9 - Chronic obstructive pulmonary disease, unspecified Status: Acute (4) Tongue cancer Code(s): C02.9 - Malignant neoplasm of tongue, unspecified Status: Acute - Plan Echo 02/01/18 shows severe dilated LV, EF 25%, distal anteroseptal and apical akinesis, trace mitral regurgitation, mild tricuspid regurgitation and pulmonary artery pressure 53 mmHg. Continue current dopamine drip for hypotension and titrate to keep systolic blood pressure over 100. Elevated troponin levels c/w non-STEMI. Obtain consent for cardiac catheterization and possible coronary intervention. Keep patient npo. Proceed with cardiac catheterization and possible intervention. Cardiac catheterization risk factors which include but not limited to bleeding or infection at the access site, kidney injury, stroke, heart attack and/or . The risks factors were discussed with patient and family in the room, patient verbalized understanding. We will continue to follow patient during her hospitalization. Patient was seen and evaluated by Dr. Rizzo who participated in care, management and decision-making. - Attending Attestation Patient seen and examined. I reviewed and agree with the evaluation and plan as presented. Echo shows severe LV dysfunction. Cardiac enzymes mildly elevated, c/ w NSTEMI. Proceed with cath and coronary intervention if necessary.
[2018-02-01] MEDS ORDERED: Iohexol 350 MG/ML 100 ML Vial (for Cath Lab) IVCONTRAST ONE (14:37)
--- NOTE | 2018-02-01 14:48 | MR ---
cc: Kennedi Rizzo MD DATE: 02/01/2018 INDICATION: Cyz-NL-eynvoopng myocardial infarction, class III angina, CHF, cardiomyopathy with severe LV systolic dysfunction PROCEDURE PERFORMED: 1. Retrograde left heart catheterization with left ventriculography and selective coronary angiography. 2. Moderate sedation. ACCESS SITE: Left femoral artery. CATHETERS USED: 5-[place] pigtail catheter and 5-[place] JL4 and AR modified coronary catheters. MEDICATIONS: Versed IV, fentanyl IV. CONTRAST: Omnipaque 70 mL. COMPLICATIONS: None. ESTIMATED BLOOD LOSS: Less than 10 mL. METHOD OF HEMOSTASIS: Vascade closure. RESULTS: HEMODYNAMICS: A. Heart rate 107 beats per minute, LV end-diastolic pressure 13 mmHg. Left ventricle 100/13. Aorta 100/67/77. B. Left ventricular ejection fraction 20%, wall motion: severe global hypokinesis, no mitral regurgitation. C. Coronary angiography: Left main coronary artery patent, left anterior descending artery has mild 30% ostial stenosis and is otherwise patent. D1 patent. Left circumflex artery is patent. OM1 patent. OM2 patent. Ramus intermedius patent. Right coronary artery is a dominant vessel which is patent. PDA patent. PLV patent. DIAGNOSES: 1. Mild nonobstructive coronary artery disease. 2. Severe left ventricular systolic dysfunction. DISPOSITION: Ms. Georges will be monitored on telemetry in the ICU after her procedure. We will continue current medical program. Her study is consistent with severe nonischemic cardiomyopathy. We will continue therapy with dopamine. We will follow her for cardiology during her hospitalization. Kennedi Rizzo MD OQ/tianna , 01:35 PM , 01:42 PM CONSTANCE
--- NOTE | 2018-02-01 15:05 | P.DIET ---
Nutritional Evaluation Type of nutrition evaluation: initial Nutrition consult regarding: Tube Feeding Nutrition screening: [facility] (pt has a g-tube and needs TF recs) Objective - Diagnosis Cardiogenic Shock, Sepsis - Objective Body Mass Index: 17.0 % IBW: 83 (IBW = 115#) Body Weight Used for Calculations: Actual (43.5 kg) Energy Needs - Lower Range (kCal/kg): 30 Energy Needs - Upper Range (kCal/kg): 35 Lower Limit kCal/kg (kCals): 1,305 Upper Limit kCal/kg (kCals): 1,523 Lower Limit Protein Factor (Grams per Kg): 1.2 Upper Limit Protein Factor (Grams per Kg): 1.5 Lower Protein Needs (Protein): 52 Upper Protein Needs (Protein): 65 Dietitian Reviewed in Medical Record: Curent medications, Intake & Output, Labs , Medical history Diet Order: NPO Assessment Assessment: Pt is s/p cardiac cath (02/01). She has a g-tube for nutrition 2' to hx of mouth and tongue CA. To meet needs with TFing, recommend Jevity 1.5 @ 45 mls/hr to provide 1620 kcals, 69 gms protein and 821 mls of free water. RD will follow. Recommendations: Jevity 1.5 @ 45 mls/hr goal Dietitian to Monitor: Lab values, Glucose level, Intake & Output, Tube feeding tolerance, Weight change, Medical course
--- NOTE | 2018-02-02 01:01 | ECG ---
Date Performed: 02/01/2018 Time Performed: 05:47:42 PTAGE: 52 years EKG: Sinus rhythm . Left axis deviation Possible anterior infarct - age undetermined Inferior/lateral T wave changes ma y be due to myocardial ischemia Abnormal ECG PREVIOUS TRACING : 02/01/2018 00.23 Compared to previous tracing, ST/T wave changes are more p rominent DOCTOR: Ivan Pérez Interpretating Date/Time 02/02/2018 01:00:28
[2018-02-02 05:02] LABS: Hematocrit 32.2 % (35.0-46.0); Mean Corpuscular HGB Conc 34.3 % (32.0-36.0); Mean Corpuscular Hemoglobin 33.3 pg (27.0-34.0); Mean Corpuscular Volume 97.2 fL (80.0-100.0); Mean Platelet Volume 6.4 fL (7.0-11.0); Platelet Count 333 th/mm3 (150-450); Red Blood Count 3.31 mil/mm3 (4.00-5.30); White Blood Count 12.8 th/mm3 (4.0-11.0)
[2018-02-02] MEDS: MethylPREDNISolone Sod Succinate Inj 40 MG/ML Vial IV.PUSH SCH ×3 (05:34→21:20)
[2018-02-02] MEDS: Chlorhexidine Gluconate 2% 1 Pack (2 Cloths) TOPICAL SCH (05:35)
[2018-02-02] MEDS ORDERED: Digoxin Inj 500 MCG/2 ML Ampul IV.PUSH ONE (06:46)
--- NOTE | 2018-02-02 06:52 | P.PNCC ---
Subjective Subjective Remarks/Hospital Course: Hospital Course: 52-year-old female who presented to [facility] ER on 01/31 with shortness of breath along with cough and chest pain. She has a prior history of tongue cancer status post partial resection in 2007 followed by chemotherapy and radiation at the time. She has a G-tube for tube feedings since then however cannot drink water. She has had previous episodes of aspiration pneumonia. She reports that she was diagnosed to have a low ejection fraction on the stress test previously years ago however is unclear regarding details. Patient was evaluated in the ER and was hypotensive. She had a femoral central line placed and was started on dopamine for pressor support. EKG had some ST-T changes suspicious for ischemia and she did have an elevated troponin. Dr. marte from cardiology was consulted and advised starting heparin GTT. Patient did receive aspirin in the ER. She was admitted to CVICU where I have evaluated her this morning. She is laying in bed on nasal cannula currently. Denies any chest pain or nausea or abdominal pain. She is a little short of breath however does not appear to be in any acute distress. Patient is on a heparin drip currently and dopamine 3 mics per KG per minute. She denies any fevers or chills. Denies any hemoptysis. Denies any nausea vomiting or diarrhea. CT a pulmonary angiogram done last night was negative for PE. Subjective: 02/02: feels better. off dopamine. HR still slightly elevated. denies fever/ chills. blood cultures negative x 24h. CT chest would be consistent with a viral infection superimposed on heart failure. C yesterday without obstructive CAD. tolerating tube feeds. chest pain improving. no cough. ROS otherwise negative. Objective Vital Signs / I&O: Vital Signs 02/01/18 07:00 02/01/18 08:00 02/01/18 09:51 Temperature 37.0 C Pulse Rate 107 H 115 H Respiratory Rate 19 20 Blood Pressure 84/49 L Pulse Oximetry 99 96 97 02/01/18 11:00 02/01/18 14:42 02/01/18 17:09 Temperature 36.8 C 37.2 C Pulse Rate 115 H 99 H 103 H Respiratory Rate 22 20 20 Blood Pressure 91/72 L 101/76 Pulse Oximetry 96 96 02/01/18 19:00 02/01/18 20:00 02/01/18 21:35 Temperature 36.6 C Pulse Rate 108 H Respiratory Rate 16 Blood Pressure 84/67 L Pulse Oximetry 97 97 96 02/01/18 21:37 02/01/18 23:00 02/02/18 03:00 Temperature 36.7 C 36.6 C Pulse Rate 97 H 106 H 107 H Respiratory Rate 20 14 16 Blood Pressure 87/67 L 91/68 L Pulse Oximetry 97 97 02/02/18 04:22 Temperature Pulse Rate 101 H Respiratory Rate 20 Blood Pressure Pulse Oximetry Intake & Output 02/01/18 02/01/18 02/02/18 06:59 18:59 06:59 Intake Total 340 / 340 1350 / 1350 Output Total 1100 / 1100 1000 / 1000 Balance -760 / -760 350 / 350 Weight 43.5 kg Intake: IV 50 / 50 1000 / 1000 Cleocin 600 mg/NS Premix 600 mg 50 / 50 In 50 ml @ 100 mls/hr IV.SIG ONCE STA Rx#:[id number] NS Inj 1,000 ML @ As Directed 1000 / 1000 IV.SIG BOLUS ONE Rx#:[id number] Oral 240 / 240 350 / 350 Tube Irrigant 50 / 50 Output: Urine 500 / 500 Urine Amount (Catheter) 600 / 600 1000 / 1000 Indwelling Urethral Catheter 600 / 600 1000 / 1000 Other: # Voids 1 Result Diagrams: 02/02/18 04:30 02/01/18 04:55 Objective Remarks: gen: middle-aged female who appears older than stated age, lying in bed, no acute distress. HEENT: nc. at. perrl. mmm. neck: trachea midline. no jvd. chest: unlabored. on nc o2. equal chest rise. unlabored. cv: tachycardic rate, regular rhythm. appears sinus. off dopamine. abd: soft, nt, nd. no guarding. g-tube in place. extr: no edema. distal pulses 2+. warm. well perfused. neuro: RASS 0. CAM -. no focal deficits. follows commands Assessment and Plan - Assessment and Plan Plan: 52-year-old female with: Acute hypoxemia- resolving. Hypotension- resolved Chest pain- resolving. Non-ST elevation AR: secondary to demand ischemia, type II COPD with probable exacerbation Bronchiectasis History of tongue cancer Plan: Neuro: Follow neuro status. Continue Mirapex. Cardiovascular: add one dose of digoxin iv to help with tachycardia and poor EF. would not necessarily continue long-term. Continue aspirin and heparin. 2d echo with known severe dysfunction, EF 25%. LHC negative for obstructive CAD. Pulmonary: Bronchodilators, IV Solu-Medrol. Supplemental O2. CT chest negative for PE and has evidence of bronchiectasis. GI/liver: tube feeds. Renal/: IV hydration, strict intake output, monitor and replete electrodes, follow BUN/creatinine. ID: Hold off on antibiotics at this time. Endocrine: SSI for glycemic control as needed Heme: Follow CBC. On anticoagulation with heparin per cardiology. Prophylaxis: PPI/SCDs. On full anticoagulation with heparin dispo: stable for transfer out of ICU.
[2018-02-02] MEDS: Budesonide-Formoterol 160/4.5 MCG 6 GM Inhaler INH SCH ×2 (07:59→20:18)
[2018-02-02] MEDS: Senna/Docusate Sodium 8.6/50 MG Tablet PO SCH ×2 (08:02→20:18)
[2018-02-02] MEDS: Pilocarpine HCl 5 MG Tablet PO SCH ×3 (08:02→17:23)
--- NOTE | 2018-02-02 08:12 | P.PNCA ---
Medications and Allergies Active Medications: Active Medications Acetaminophen (Tylenol) 650 mg PO Q6H PRN PRN Reason: PAIN 1-10 AND/OR FEVER >101F Al Hydroxide/Mg Hydroxide (Milk Of Magnesia Liq) 30 ml PO Q12H PRN PRN Reason: Mild Constipation Albuterol (Albuterol Neb (Prn)) 2.5 mg NEB Q2HR NEB PRN PRN Reason: SHORTNESS OF BREATH/WHEEZING Albuterol (Duoneb Neb (Williams)) 1 ampul NEB Q6HR NEB [facility] Last Admin: 02/02/18 04:22 Dose: 1 ampul Aspirin (Aspirin Chew) 81 mg G-TUBE DAILY [facility] Last Admin: 02/01/18 09:21 Dose: 81 mg Bisacodyl (Dulcolax Supp) 10 mg RECTAL DAILY PRN PRN Reason: SEVERE CONSITIPATION Budesonide/Formoterol Fumarate (Symbicort 160/4.5 Mcg Inh) 2 puff INH BID [facility] Last Admin: 02/01/18 21:07 Dose: 2 puff Chlorhexidine Gluconate (Chlorhexidine 2% Cloth) 3 pack TOPICAL DAILY@0400 [facility] Stop: 02/06/18 03:59 Last Admin: 02/02/18 05:35 Dose: 3 pack Chlorhexidine Gluconate (Chlorhexidine 2% Cloth) 3 pack TOPICAL DAILY@0400 PRN PRN Reason: Extra cloth needed Stop: 02/06/18 03:59 Heparin Sodium (Porcine) (Heparin Inj) 5,000 units IV.PUSH UNSCH PRN PRN Reason: aPTT < 25 Heparin Sodium/Dextrose (Heparin/D5w 25,000 U/250 Ml) 25,000 unit in 250 mls @ 0 mls/hr IV.CONT TITRATE PRN; Protocol PRN Reason: Per Protocol Last Titration: 02/01/18 19:41 Dose: 0 units/hr, 0 mls/hr Lactulose (Lactulose Liq) 30 ml PO DAILY PRN PRN Reason: SEVERE CONSITIPATION Methylprednisolone Sodium Succinate (Solumedrol Inj) 80 mg IV.PUSH Q8HR [facility] Last Admin: 02/02/18 05:34 Dose: 80 mg Ondansetron HCl (Zofran Inj) 4 mg IV.PUSH Q6H PRN PRN Reason: NAUSEA OR VOMITING Pantoprazole Sodium (Protonix Inj) 40 mg IV.PUSH DAILY [facility] Last Admin: 02/01/18 09:18 Dose: 40 mg Paroxetine HCl (Paxil) 20 mg PO DAILY [facility] Last Admin: 02/01/18 09:19 Dose: 20 mg Pilocarpine HCl (Salagen) 7.5 mg PO TID [facility] Last Admin: 02/01/18 17:39 Dose: 7.5 mg Pramipexole Dihydrochloride (Mirapex) 0.5 mg PO QPM [facility] Last Admin: 02/01/18 17:39 Dose: 0.25 mg Senna/Docusate Sodium (Pauilne-Colace) 1 tab PO BID [facility] Last Admin: 02/01/18 21:07 Dose: 1 tab Sennosides (Senokot) 17.2 mg PO Q12H PRN PRN Reason: Moderate Constipation Sodium Chloride (Ns Flush) 2 ml IV.FLUSH BID [facility] Last Admin: 02/01/18 21:07 Dose: 2 ml Sodium Chloride (Ns Flush) 2 ml IV.FLUSH PRN PRN PRN Reason: FLUSH AFTER USING IV ACCESS Terbutaline Sulfate (Brethine Inj) 1 mg SQ ONCE PRN PRN Reason: Extravasation Allergies Allergy/AdvReac Type Severity Reaction Status Date / Time moxifloxacin Allergy Severe Shortness Verified 01/31/18 16:36 of Breath penicillin G Allergy Severe SHORT OF Verified 01/31/18 16:36 BREATH tramadol Allergy Severe SHORT OF Verified 01/31/18 16:36 BREATH Home Medications Medication Instructions Recorded Confirmed Type bisoprolol fumarate 2.5 mg PO DAILY 01/31/18 01/31/18 History fluticasone-salmeterol [Advair 1 inh INHALATION BID 01/31/18 01/31/18 History Diskus] loratadine 10 mg PO DAILY 01/31/18 01/31/18 History pantoprazole 40 mg PO DAILY 01/31/18 01/31/18 History paroxetine HCl 20 mg PO DAILY 01/31/18 01/31/18 History pilocarpine HCl 7.5 mg PO TID 01/31/18 01/31/18 History pramipexole 0.5 mg PO QPM 01/31/18 01/31/18 History tiotropium bromide [Spiriva with 1 cap INHALATION DAILY 01/31/18 01/31/18 History HandiHaler] Physical Exam Vital signs: Vital Signs 02/01/18 09:51 02/01/18 11:00 02/01/18 14:42 Temperature 98.3 F 98.9 F Pulse Rate 115 H 115 H 99 H Respiratory Rate 20 22 20 Blood Pressure 91/72 L 101/76 Pulse Oximetry 97 96 96 02/01/18 17:09 02/01/18 19:00 02/01/18 20:00 Temperature 97.8 F Pulse Rate 103 H 108 H Respiratory Rate 20 16 Blood Pressure 84/67 L Pulse Oximetry 97 97 02/01/18 21:35 02/01/18 21:37 02/01/18 23:00 Temperature 98.1 F Pulse Rate 97 H 106 H Respiratory Rate 20 14 Blood Pressure 87/67 L Pulse Oximetry 96 97 02/02/18 03:00 02/02/18 04:22 02/02/18 07:00 Temperature 98 F 98.5 F Pulse Rate 107 H 101 H 110 H Respiratory Rate 16 20 16 Blood Pressure 91/68 L 103/78 Pulse Oximetry 97 99 Intake & Output 02/01/18 02/02/18 02/02/18 18:59 06:59 18:59 Intake Total 1350 / 1350 695 / 695 250 / 250 Output Total 1000 / 1000 320 / 320 Balance 350 / 350 375 / 375 250 / 250 Weight 44 kg Intake: IV 1000 / 1000 250 / 250 DOPamine 400 MG/250 ML Premix 250 / 250 400 mg In 250 ml @ 3 MCG/KG/MIN 4.95 mls/hr IV.CONT TITRATE PRN Rx#:[id number] NS Inj 1,000 ML @ As Directed 1000 / 1000 IV.SIG BOLUS ONE Rx#:[id number] Oral 350 / 350 240 / 240 Tube Feeding 405 / 405 Tube Irrigant 50 / 50 Output: Urine 320 / 320 Urine Amount (Catheter) 1000 / 1000 Indwelling Urethral Catheter 1000 / 1000 - Urinary Catheter Management Indwelling Urethral Catheter Cath placed during this visit: yes, but has since been removed by the nurse Reason for continuing: Hourly intake/output Insertion date: 02/01/18 Insertion time: 00:40 Removal date: 02/01/18 Removal time: 07:00 Results 02/02/18 04:30 02/01/18 04:55 Cardiac Enzymes 01/31/18 01/31/18 02/01/18 Range/Units 17:22 17:22 01:00 AST 42 H (15-37) U/L CK-MB (CK-2) 14.6 H (0.5-3.6) ng/mL Troponin I 4.08 H* 2.25 H* D (0.02-0.05) ng/mL B-Natriuretic Peptide 39 (0-100) pg/mL 02/01/18 02/01/18 Range/Units 04:55 17:30 AST 85 H (15-37) U/L CK-MB (CK-2) (0.5-3.6) ng/mL Troponin I 2.13 H* D 1.79 H* D (0.02-0.05) ng/mL B-Natriuretic Peptide (0-100) pg/mL Coagulation 01/31/18 01/31/18 02/01/18 Range/Units 17:22 17:22 00:40 PT 10.3 (9.8-11.6) sec APTT 29.3 64.8 H D (24.3-30.1) sec B-Natriuretic Peptide 39 (0-100) pg/mL 02/01/18 Range/Units 07:30 PT (9.8-11.6) sec APTT 56.1 H (24.3-30.1) sec B-Natriuretic Peptide (0-100) pg/mL CBC 01/31/18 02/01/18 02/02/18 Range/Units 17:22 04:55 04:30 WBC 14.2 H 8.4 12.8 H D (4.0-11.0) th/mm3 RBC 4.22 3.72 L 3.31 L (4.00-5.30) mil/mm3 Hgb 14.3 12.6 11.0 L (11.6-15.3) gm/dL Hct 41.5 36.9 32.2 L (35.0-46.0) % Plt Count 432 367 333 (150-450) th/mm3 Neut # (Auto) 9.9 H 6.9 (1.8-7.7) th/mm3 Lymph # (Auto) 3.0 1.2 (1.0-4.8) th/mm3 [place] # (Auto) 0.7 0.2 (0.0-0.9) th/mm3 Eos # (Auto) 0.1 0.0 (0.0-0.4) th/mm3 Baso # (Auto) 0.5 H 0.0 (0.0-0.2) th/mm3 Comprehensive Metabolic Panel 01/31/18 02/01/18 Range/Units 17:22 04:55 Sodium 130 L 132 L (136-145) meq/L Potassium 4.3 3.9 (3.5-5.1) meq/L Chloride 96 L 97 L (98-107) meq/L Carbon Dioxide 23.2 22.8 (21.0-32.0) meq/L BUN 11 14 (7-18) mg/dL Creatinine 0.78 0.65 (0.50-1.00) mg/dL Calcium 9.5 8.5 D (8.5-10.1) mg/dL AST 42 H 85 H (15-37) U/L ALT 24 58 H (10-53) U/L Alkaline Phosphatase 97 108 (45-117) U/L Total Protein 8.3 H 7.2 D (6.4-8.2) g/dL Albumin 4.0 3.5 (3.4-5.0) g/dL Intake and Output 02/01/18 02/02/18 02/02/18 22:59 06:59 14:59 Intake Total 350 / 350 695 / 695 250 / 250 Output Total 1000 / 1000 320 / 320 Balance -650 / -650 375 / 375 250 / 250 Intake: IV 250 / 250 DOPamine 400 MG/250 ML Premix 250 / 250 400 mg In 250 ml @ 3 MCG/KG/MIN 4.95 mls/hr IV.CONT TITRATE PRN Rx#:[id number] Oral 350 / 350 240 / 240 Tube Feeding 405 / 405 Tube Irrigant 50 / 50 Output: Urine 320 / 320 Urine Amount (Catheter) 1000 / 1000 Indwelling Urethral Catheter 1000 / 1000 Other: Weight 44 kg - Imaging and Cardiology Imaging: Impressions Chest X-Ray 01/31/18 17:09 CONCLUSION: Trace pleural fluid. Possible residual right middle lobe atelectasis. Lateral view not available. Chest CTA 01/31/18 19:21 CONCLUSION: 1. Negative for pulmonary embolus. 2. Fairly extensive peribronchial thickening bilaterally with mild bronchiectasis and distal airway disease. Partial atelectasis of the right middle lobe associated with peribronchial thickening of the right middle lobe segmental bronchi. 3. Moderate emphysema. Gastrostomy tube present. Mild coronary calcifications. Assessment and Plan - Plan Assessment STEMI-status post heart cath Non ischemic cardiomyopathy-Echo 02/01/18 shows severe dilated LV, EF 25%, distal anteroseptal and apical akinesis, trace mitral regurgitation, mild tricuspid regurgitation and pulmonary artery pressure 53 mmHg. Acute hypoxemia Hx of tongue cancer Plan: -Status post heart cath-showing, Mild nonobstructive coronary artery disease, Severe left ventricular systolic dysfunction, consistent with severe nonischemic cardiomyopathy. 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 would not necessarily continue long-term. Continue aspirin and heparin. -Pulmonary: Bronchodilators, IV Solu-Medrol. Supplemental O2. CT chest negative for PE and has evidence of bronchiectasis. -Continue current dopamine drip as needed for hypotension and titrate to keep systolic blood pressure over 100. Currently off dopamine. -Continue with tube feeds. We will continue to follow patient during her hospitalization. Patient was seen and evaluated by Dr. Mahan who participated in care, management and decision-making. Code Status: Full Code
[2018-02-02] MEDS: Pantoprazole Inj 40 MG Vial IV.PUSH SCH (09:05)
--- NOTE | 2018-02-02 13:00 | ECG ---
Date Performed: 02/01/2018 Time Performed: 00:23:48 PTAGE: 52 years EKG: --- Warning: Data quality may affect interpretation --- Sinus tachycardia. Left anterior fa scicular block Possible anterior infarct - age undetermined Abnormal ECG PREVIOUS TRACING : 01/31/2018 18.50 Since the previous tracing, no significant change noted DOCTOR: Ivan Pérez Interpretating Date/Time 02/02/2018 12:59:16
--- NOTE | 2018-02-02 13:12 | ECG ---
Date Performed: 01/31/2018 Time Performed: 18:50:34 PTAGE: 52 years EKG: SINUS TACHYCARDIA LEFT ANTERIOR FASCICULAR BLOCK ANTERIOR MYOCARDIAL INFARCTION POSSIBLE IN FERIOR MYOCARDIAL INFARCTION ABNORMAL ECG WARNING: DATA QUALITY MAY AFFECT INTERPRETATION PREVIOUS TRACING : 01/31/2018 18.18 Since the previous tracing, no significant change not ed DOCTOR: Ivan Pérez Interpretating Date/Time 02/02/2018 13:11:47
--- NOTE | 2018-02-02 13:19 | ECG ---
Date Performed: 01/31/2018 Time Performed: 18:18:47 PTAGE: 52 years EKG: SINUS TACHYCARDIA PATTERN CONSISTENT WITH PULMONARY DISEASE LEFT ANTERIOR FASCICULAR BLOCK INFERIOR MYOCARDIAL INFARCTION ABNORMAL ECG INTERPRETATION BASED ON A DEFAULT AGE OF 40 YEARS PREVIOUS TRACING : 12/18/2016 10.15 Compared to previous tracing, now with LAFB and infe rior infarction pattern DOCTOR: Ivan Pérez Interpretating Date/Time 02/02/2018 13:18:27
[2018-02-03 05:31] LABS: Hemoglobin 11.3 gm/dL (11.6-15.3); Mean Corpuscular HGB Conc 34.3 % (32.0-36.0); Mean Corpuscular Hemoglobin 33.6 pg (27.0-34.0); Mean Corpuscular Volume 97.9 fL (80.0-100.0); Mean Platelet Volume 6.6 fL (7.0-11.0); Platelet Count 339 th/mm3 (150-450); Red Blood Count 3.37 mil/mm3 (4.00-5.30); Red Cell Distribution Width 14.3 % (11.6-17.2); White Blood Count 18.7 th/mm3 (4.0-11.0)
[2018-02-03] MEDS: MethylPREDNISolone Sod Succinate Inj 40 MG/ML Vial IV.PUSH SCH ×3 (05:33→21:14)
[2018-02-03] MEDS: Chlorhexidine Gluconate 2% 1 Pack (2 Cloths) TOPICAL SCH (05:33)
[2018-02-03 05:54] LABS: Calcium 8.3 mg/dL (8.5-10.1); Carbon Dioxide 32.6 meq/L (21.0-32.0); Magnesium 1.8 mg/dL (1.5-2.5); Potassium 3.9 meq/L (3.5-5.1)
[2018-02-03] MEDS: Senna/Docusate Sodium 8.6/50 MG Tablet PO SCH ×2 (08:10→21:15)
[2018-02-03] MEDS: Pantoprazole Inj 40 MG Vial IV.PUSH SCH (08:10)
[2018-02-03] MEDS: Pilocarpine HCl 5 MG Tablet PO SCH ×3 (08:10→17:40)
[2018-02-03] MEDS: Budesonide-Formoterol 160/4.5 MCG 6 GM Inhaler INH SCH ×2 (08:11→21:13)
--- NOTE | 2018-02-03 08:41 | P.PNCA ---
Subjective Interval history: Patient lying in bed, denies chest pain. Continues to have SOB. Remain tachycardic. BP better this AM. Medications and Allergies Allergies Allergy/AdvReac Type Severity Reaction Status Date / Time moxifloxacin Allergy Severe Shortness Verified 01/31/18 16:36 of Breath penicillin G Allergy Severe SHORT OF Verified 01/31/18 16:36 BREATH tramadol Allergy Severe SHORT OF Verified 01/31/18 16:36 BREATH Home Medications Medication Instructions Recorded Confirmed Type bisoprolol fumarate 2.5 mg PO DAILY 01/31/18 01/31/18 History fluticasone-salmeterol [Advair 1 inh INHALATION BID 01/31/18 01/31/18 History Diskus] loratadine 10 mg PO DAILY 01/31/18 01/31/18 History pantoprazole 40 mg PO DAILY 01/31/18 01/31/18 History paroxetine HCl 20 mg PO DAILY 01/31/18 01/31/18 History pilocarpine HCl 7.5 mg PO TID 01/31/18 01/31/18 History pramipexole 0.5 mg PO QPM 01/31/18 01/31/18 History tiotropium bromide [Spiriva with 1 cap INHALATION DAILY 01/31/18 01/31/18 History HandiHaler] Active Medications: Active Medications Acetaminophen (Tylenol) 650 mg PO Q6H PRN PRN Reason: PAIN 1-10 AND/OR FEVER >101F Al Hydroxide/Mg Hydroxide (Milk Of Magnyesika Liq) 30 ml PO Q12H PRN PRN Reason: Mild Constipation Albuterol (Albuterol Neb (Prn)) 2.5 mg NEB Q2HR NEB PRN PRN Reason: SHORTNESS OF BREATH/WHEEZING Last Admin: 02/03/18 07:39 Dose: 2.5 mg Albuterol (Duoneb Neb ([facility])) 1 ampul NEB Q6HR [facility] Last Admin: 02/03/18 03:30 Dose: 1 ampul Aspirin (Aspirin Chew) 81 mg G-TUBE DAILY [facility] Last Admin: 02/03/18 08:09 Dose: 81 mg Bisacodyl (Dulcolax Supp) 10 mg RECTAL DAILY PRN PRN Reason: SEVERE CONSITIPATION Budesonide/Formoterol Fumarate (Symbicort 160/4.5 Mcg Inh) 2 puff INH BID [facility] Last Admin: 02/03/18 08:11 Dose: 2 puff Chlorhexidine Gluconate (Chlorhexidine 2% Cloth) 3 pack TOPICAL DAILY@0400 [facility] Stop: 02/06/18 03:59 Last Admin: 02/03/18 05:33 Dose: 3 pack Chlorhexidine Gluconate (Chlorhexidine 2% Cloth) 3 pack TOPICAL DAILY@0400 PRN PRN Reason: Extra cloth needed Stop: 02/06/18 03:59 Heparin Sodium (Porcine) (Heparin Inj) 5,000 units IV.PUSH UNSCH PRN PRN Reason: aPTT < 25 Heparin Sodium/Dextrose (Heparin/D5w 25,000 U/250 Ml) 25,000 unit in 250 mls @ 0 mls/hr IV.CONT TITRATE PRN; Protocol PRN Reason: Per Protocol Last Titration: 02/01/18 19:41 Dose: 0 units/hr, 0 mls/hr Lactulose (Lactulose Liq) 30 ml PO DAILY PRN PRN Reason: SEVERE CONSITIPATION Lorazepam (Ativan Inj) 1 mg IV.PUSH Q4H PRN PRN Reason: ANXIETY Last Admin: 02/03/18 08:12 Dose: 1 mg Methylprednisolone Sodium Succinate (Solumedrol Inj) 80 mg IV.PUSH Q8HR [facility] Last Admin: 02/03/18 05:33 Dose: 80 mg Ondansetron HCl (Zofran Inj) 4 mg IV.PUSH Q6H PRN PRN Reason: NAUSEA OR VOMITING Last Admin: 02/02/18 21:20 Dose: 4 mg Pantoprazole Sodium (Protonix Inj) 40 mg IV.PUSH DAILY [facility] Last Admin: 02/03/18 08:10 Dose: 40 mg Paroxetine HCl (Paxil) 20 mg PO DAILY [facility] Last Admin: 02/03/18 08:11 Dose: 20 mg Pilocarpine HCl (Salagen) 7.5 mg PO TID [facility] Last Admin: 02/03/18 08:10 Dose: 7.5 mg Pramipexole Dihydrochloride (Mirapex) 0.5 mg PO QPM [facility] Last Admin: 02/02/18 17:23 Dose: 0.5 mg Senna/Docusate Sodium (Pauline-Colace) 1 tab PO BID [facility] Last Admin: 02/03/18 08:10 Dose: 1 tab Sennosides (Senokot) 17.2 mg PO Q12H PRN PRN Reason: Moderate Constipation Sodium Chloride (Ns Flush) 2 ml IV.FLUSH BID [facility] Last Admin: 02/03/18 08:11 Dose: 2 ml Sodium Chloride (Ns Flush) 2 ml IV.FLUSH PRN PRN PRN Reason: FLUSH AFTER USING IV ACCESS Terbutaline Sulfate (Brethine Inj) 1 mg SQ ONCE PRN PRN Reason: Extravasation Physical Exam Vital signs: Vital Signs 02/02/18 09:19 02/02/18 11:00 02/02/18 15:00 Temperature 97.7 F Pulse Rate 127 H 124 H 118 H Respiratory Rate 17 16 19 Blood Pressure 99/68 L 112/80 Pulse Oximetry 96 94 L 94 L 02/02/18 16:19 02/02/18 19:00 02/02/18 21:20 Temperature 97.9 F Pulse Rate 115 H 116 H 114 H Respiratory Rate 20 24 24 Blood Pressure 102/71 Pulse Oximetry 94 L 02/02/18 21:46 02/02/18 23:00 02/02/18 23:35 Temperature 97.9 F Pulse Rate 119 H 118 H Respiratory Rate 24 22 Blood Pressure 114/87 Pulse Oximetry 97 97 02/03/18 00:00 02/03/18 03:00 02/03/18 03:31 Temperature 98.0 F Pulse Rate 123 H 119 H 116 H Respiratory Rate 24 20 Blood Pressure 96/69 L Pulse Oximetry 99 02/03/18 07:00 02/03/18 07:12 02/03/18 07:40 Temperature 97.6 F Pulse Rate 121 H 125 H Respiratory Rate 20 22 Blood Pressure 123/99 H Pulse Oximetry 97 97 Intake & Output 02/02/18 02/03/18 02/03/18 18:59 06:59 18:59 Intake Total 1190 / 1190 600 / 600 Output Total 300 / 300 1250 / 1250 Balance 890 / 890 -650 / -650 Weight 42 kg Intake: IV 250 / 250 DOPamine 400 MG/250 ML Premix 250 / 250 400 mg In 250 ml @ 3 MCG/KG/MIN 4.95 mls/hr IV.CONT TITRATE PRN Rx#:[id number] Tube Feeding 940 / 940 560 / 560 Tube Irrigant 40 / 40 Output: Urine Amount (Catheter) 300 / 300 1250 / 1250 Indwelling Urethral Catheter 300 / 300 1250 / 1250 - Constitutional no acute distress - Routine HEENT Exam Head: Present: normocephalic, atraumatic Eye: Present: PERRL, normal accommodation ENT: Present: mucous membranes moist - Routine Neck Exam Present: supple - Routine Respiratory Exam Present: accessory muscle use, wheezes, crackles - Routine Cardiovascular Exam Present: tachycardia - Routine Abdominal Exam Present: soft - Routine Skin Exam Present: intact - Routine Neurological Exam Present: alert, oriented X3 - Detailed Neurological Exam: Coma Scale Eye Opening: Spontaneous Verbal Response: Oriented Motor Response: Obey commands [place] Coma Scale Total: 15 - Routine Psychiatric Exam Present: normal affect - Urinary Catheter Management Indwelling Urethral Catheter Cath placed during this visit: yes, but has since been removed by the nurse Reason for continuing: Hourly intake/output Insertion date: 02/01/18 Insertion time: 00:40 Removal date: 02/01/18 Removal time: 07:00 Results 02/03/18 04:50 02/03/18 04:50 Cardiac Enzymes 02/01/18 Range/Units 17:30 Troponin I 1.79 H* D (0.02-0.05) ng/mL CBC 02/02/18 02/03/18 Range/Units 04:30 04:50 WBC 12.8 H D 18.7 H (4.0-11.0) th/mm3 RBC 3.31 L 3.37 L (4.00-5.30) mil/mm3 Hgb 11.0 L 11.3 L (11.6-15.3) gm/dL Hct 32.2 L 33.0 L (35.0-46.0) % Plt Count 333 339 (150-450) th/mm3 Comprehensive Metabolic Panel 02/03/18 Range/Units 04:50 Sodium 133 L (136-145) meq/L Potassium 3.9 (3.5-5.1) meq/L Chloride 94 L (98-107) meq/L Carbon Dioxide 32.6 H D (21.0-32.0) meq/L BUN 32 H (7-18) mg/dL Creatinine 0.84 (0.50-1.00) mg/dL Calcium 8.3 L (8.5-10.1) mg/dL Intake and Output 02/02/18 02/03/18 02/03/18 22:59 06:59 14:59 Intake Total 940 / 940 600 / 600 Output Total 300 / 300 1250 / 1250 Balance 640 / 640 -650 / -650 Intake: Tube Feeding 940 / 940 560 / 560 Tube Irrigant 40 / 40 Output: Urine Amount (Catheter) 300 / 300 1250 / 1250 Indwelling Urethral Catheter 300 / 300 1250 / 1250 Other: Weight 42 kg Assessment and Plan - Plan Assessment STEMI-status post heart cath Non ischemic cardiomyopathy-Echo 02/01/18 shows severe dilated LV, EF 25%, distal anteroseptal and apical akinesis, trace mitral regurgitation, mild tricuspid regurgitation and pulmonary artery pressure 53 mmHg. Acute hypoxemia Hx of tongue cancer Plan: -Status post heart cath-showing, Mild nonobstructive coronary artery disease, Severe left ventricular systolic dysfunction, consistent with severe nonischemic cardiomyopathy. -Tachycardic, will add metoprolol 12.5 mg BID. Continue aspirin and heparin. Monitor BP closely. -Pulmonary: Bronchodilators, IV Solu-Medrol. Supplemental O2. CT chest negative for PE and has evidence of bronchiectasis. -Off dopamine. BP better this AM. -Continue with tube feeds. Dr. Rizzo will see patient tomorrow. Patient was seen and evaluated by Dr. Mahan who participated in care, management and decision-making. The exam, history, and the medical decision-making described in the above note were completed with the assistance of the mid-level provider. I reviewed and agree with the findings presented. I attest that I had a [id number] encounter with the patient on the same day, and personally performed and documented my assessment and findings in the medical record. Slow improvement Dr Hill will see in am. Code Status: Full Code Discussed Condition With: Nurse
[2018-02-03] MEDS: Metoprolol Tartrate 25 MG Tablet PO SCH ×2 (08:53→21:14)
--- NOTE | 2018-02-03 10:31 | P.PN ---
Subjective Interval history: Nursing denies any deterioration since last night except for transient episodes of dyspnea which they attribute to some anxiety. Patient's heart rate is in the 120s at this time. Was switched over to Lopressor for this reason. Patient herself has no new complaints. Physical Exam Vital signs: Vital Signs 02/02/18 11:00 02/02/18 15:00 02/02/18 16:19 Temperature 97.7 F Pulse Rate 124 H 118 H 115 H Respiratory Rate 16 19 20 Blood Pressure 99/68 L 112/80 Pulse Oximetry 94 L 94 L 02/02/18 19:00 02/02/18 21:20 02/02/18 21:46 Temperature 97.9 F Pulse Rate 116 H 114 H Respiratory Rate 24 24 Blood Pressure 102/71 Pulse Oximetry 94 L 97 02/02/18 23:00 02/02/18 23:35 02/03/18 00:00 Temperature 97.9 F Pulse Rate 119 H 118 H 123 H Respiratory Rate 24 22 Blood Pressure 114/87 Pulse Oximetry 97 02/03/18 03:00 02/03/18 03:31 02/03/18 07:00 Temperature 98.0 F 97.6 F Pulse Rate 119 H 116 H 121 H Respiratory Rate 24 20 20 Blood Pressure 96/69 L 123/99 H Pulse Oximetry 99 97 02/03/18 07:12 02/03/18 07:40 Temperature Pulse Rate 125 H Respiratory Rate 22 Blood Pressure Pulse Oximetry 97 Intake & Output 02/02/18 02/03/18 02/03/18 18:59 06:59 18:59 Intake Total 1190 / 1190 600 / 600 Output Total 300 / 300 1250 / 1250 Balance 890 / 890 -650 / -650 Weight 42 kg Intake: IV 250 / 250 DOPamine 400 MG/250 ML Premix 250 / 250 400 mg In 250 ml @ 3 MCG/KG/MIN 4.95 mls/hr IV.CONT TITRATE PRN Rx#:[id number] Tube Feeding 940 / 940 560 / 560 Tube Irrigant 40 / 40 Output: Urine Amount (Catheter) 300 / 300 1250 / 1250 Indwelling Urethral Catheter 300 / 300 1250 / 1250 Narrative: Heart sounds indicate a tachycardic but regular rhythm Clear lungs bilaterally Suctioning herself orally - Urinary Catheter Management Indwelling Urethral Catheter Cath placed during this visit: yes, but has since been removed by the nurse Reason for continuing: Hourly intake/output Insertion date: 02/01/18 Insertion time: 00:40 Removal date: 02/01/18 Removal time: 07:00 Results - Labs CBC & Chem 7: 02/03/18 04:50 02/03/18 04:50 Laboratory Results - last 24 hr 02/03/18 02/03/18 04:50 04:50 WBC 18.7 H RBC 3.37 L Hgb 11.3 L Hct 33.0 L MCV 97.9 MCH 33.6 MCHC 34.3 RDW 14.3 Plt Count 339 MPV 6.6 L Sodium 133 L Potassium 3.9 Chloride 94 L Carbon Dioxide 32.6 H D Anion Gap 6 BUN 32 H Creatinine 0.84 Estimated GFR 71 L Random Glucose 198 H Calcium 8.3 L Phosphorus 2.0 L Magnesium 1.8 Microbiology 01/31/18 17:18 Blood - Peripheral Aerobic Blood Culture - Preliminary No growth in 2 days 01/31/18 17:18 Blood - Peripheral Anaerobic Blood Culture - Preliminary No growth in 2 days 01/31/18 17:22 Blood - Peripheral Aerobic Blood Culture - Preliminary No growth in 2 days 01/31/18 17:22 Blood - Peripheral Anaerobic Blood Culture - Preliminary No growth in 2 days Assessment and Plan - Plan 52-year-old female admitted with cardiogenic shock with hypoxia requiring pressors. Has been weaned off of pressors and oxygen and is now persistently tachycardic. Status post left heart cath with minimally obstructive CAD, likely had minimally elevated troponin secondary to demand ischemia. Severe systolic dysfunction Status post cardiogenic shock w/ likely nonischemic cardiomyopathy per cards Tachycardia -Continue aspirin, now on Lopressor per cardiology -consider starting low dose lisinopril when BP more stable History of tongue cancer -N.p.o., continue tube feeds -pilocarpine for xerostomia COPD with possible exacerbation/dyspnea Continue IV Solu-Medrol, wean down to room air -Bronchodilators leuokocytosis - likely 2/2 steroids, monitor clinically for any sx of infx otherwise Neuro: Continue home Mirapex. dispo: stable for transfer out of ICU.
--- NOTE | 2018-02-03 11:49 | ECG ---
Date Performed: 02/02/2018 Time Performed: 07:51:56 PTAGE: 52 years EKG: Sinus tachycardia Indeterminate axis Possible anterior infarct - age undetermined Inferior/ lateral ST-T changes may be due to myocardial ischemia Since the previous tracing, no significant chitra nge noted Abnormal ECG PREVIOUS TRACING : 02/01/2018 05.47 DOCTOR: Sofie Mahan Interpretating Date/Time 02/03/2018 11:47:41
[2018-02-04] MEDS: Chlorhexidine Gluconate 2% 1 Pack (2 Cloths) TOPICAL SCH (04:34)
[2018-02-04] MEDS: MethylPREDNISolone Sod Succinate Inj 40 MG/ML Vial IV.PUSH SCH ×2 (05:20→20:42)
--- NOTE | 2018-02-04 05:26 | XR ---
EXAM DATE: 02/04/2018 5:24 AM EDT AGE/SEX: 52 years / Female INDICATIONS: Congestion, short of breath CLINICAL DATA: This is the patient's subsequent encounter. Patient reports that signs and symptoms h ave been present for 4 - 6 days and indicates a pain score of Nonresponsive. MEDICAL/SURGICAL HISTORY: Seizures. Hypertension. Emphysema. tongue carcinoma, sepsis, cardi ogenic shock Cholecystectomy. Hysterectomy. tongue carcinoma resection, tracheostomy COMPARISON: [facility], CHEST 1V SINGLE AP, 01/31/2018. . FINDINGS: Single AP view of the chest. The lungs are clear. Cardiomediastinal silhouette within nor mal limits. No evidence of pleural effusion or pneumothorax. CONCLUSION: No acute cardiopulmonary disease identified. Electronically signed by: Parth Santana MD 02/04/2018 5:25 AM EDT
[2018-02-04 05:28] LABS: ABG Base Excess 10.3 mmol/L (-2-2); ABG PCO2 63 mmHg (38-42); ABG PO2 122 mmHG (61-120)
[2018-02-04 06:18] LABS: Hemoglobin 12.2 gm/dL (11.6-15.3); Mean Corpuscular HGB Conc 33.1 % (32.0-36.0); Mean Corpuscular Hemoglobin 33.2 pg (27.0-34.0); Mean Corpuscular Volume 100.3 fL (80.0-100.0); Mean Platelet Volume 6.9 fL (7.0-11.0); Platelet Count 348 th/mm3 (150-450); Red Blood Count 3.68 mil/mm3 (4.00-5.30); Red Cell Distribution Width 14.5 % (11.6-17.2); White Blood Count 23.6 th/mm3 (4.0-11.0)
[2018-02-04 06:45] LABS: Calcium 8.7 mg/dL (8.5-10.1); Carbon Dioxide 38.9 meq/L (21.0-32.0); Magnesium 2.2 mg/dL (1.5-2.5); Phosphorus 3.7 mg/dL (2.5-4.9)
[2018-02-04] MEDS: Pantoprazole Inj 40 MG Vial IV.PUSH SCH (08:49)
[2018-02-04] MEDS: Pilocarpine HCl 5 MG Tablet PO SCH ×3 (08:50→19:53)
[2018-02-04] MEDS: Senna/Docusate Sodium 8.6/50 MG Tablet PO SCH ×2 (08:51→20:51)
[2018-02-04] MEDS: Metoprolol Tartrate 25 MG Tablet PO SCH (08:51)
[2018-02-04] MEDS ORDERED: Metoprolol Tartrate 25 MG Tablet PO SCH (10:00)
--- NOTE | 2018-02-04 11:03 | P.PN ---
Subjective Interval history: Nursing reports she had some mild desaturations overnight and was put on BiPAP however the patient was wanting to go off the BiPAP mask. This morning she was transitioned to nasal cannula and saturating in the mid 90s on 2-3 L. When asking the patient how she does she seems slightly drowsy but says she is doing "so-so." Physical Exam Vital signs: Vital Signs 02/03/18 11:28 02/03/18 13:00 02/03/18 13:20 Temperature Pulse Rate 114 H 113 H Respiratory Rate 20 24 Blood Pressure Pulse Oximetry 02/03/18 14:00 02/03/18 14:47 02/03/18 15:27 Temperature 98.0 F Pulse Rate 121 H 119 H 122 H Respiratory Rate 20 Blood Pressure 133/98 H Pulse Oximetry 97 02/03/18 16:38 02/03/18 17:04 02/03/18 17:52 Temperature Pulse Rate 116 H 117 H 118 H Respiratory Rate 25 H Blood Pressure Pulse Oximetry 02/03/18 19:00 02/03/18 19:46 02/03/18 20:00 Temperature 97.5 F L Pulse Rate 121 H 119 H 118 H Respiratory Rate 22 24 Blood Pressure 129/97 H Pulse Oximetry 97 02/03/18 21:00 02/03/18 22:00 02/03/18 23:00 Temperature 97.8 F Pulse Rate 124 H 124 H 135 H Respiratory Rate 22 Blood Pressure 133/97 H Pulse Oximetry 96 02/04/18 00:00 02/04/18 01:00 02/04/18 01:36 Temperature Pulse Rate 118 H 118 H 127 H Respiratory Rate 26 H Blood Pressure Pulse Oximetry 02/04/18 02:00 02/04/18 03:00 02/04/18 04:00 Temperature 97.6 F Pulse Rate 118 H 125 H 116 H Respiratory Rate 22 Blood Pressure 125/96 H Pulse Oximetry 96 02/04/18 04:32 02/04/18 05:00 02/04/18 06:00 Temperature Pulse Rate 125 H 116 H 116 H Respiratory Rate 24 Blood Pressure Pulse Oximetry 02/04/18 06:34 02/04/18 07:00 02/04/18 08:15 Temperature 98.5 F Pulse Rate 121 H 88 Respiratory Rate 17 17 Blood Pressure 122/93 H Pulse Oximetry 96 99 Intake & Output 02/03/18 02/04/18 02/04/18 18:59 06:59 18:59 Intake Total 100 / 100 0 / 0 Output Total 250 / 250 750 / 750 Balance -150 / -150 -750 / -750 Weight 37 kg Intake: Oral 100 / 100 0 / 0 Output: Urine Amount (Catheter) 250 / 250 750 / 750 Indwelling Urethral Catheter 250 / 250 750 / 750 Narrative: Appears to have labored breathing with moderate abdominal retractions, nasal cannula in nose Has diffuse wheezing bilaterally Tachycardic rate but appears to be regular Appears slightly drowsy but awoken easily - Urinary Catheter Management Indwelling Urethral Catheter Cath placed during this visit: yes, but has since been removed by the nurse Reason for continuing: Hourly intake/output Insertion date: 02/01/18 Insertion time: 00:40 Removal date: 02/01/18 Removal time: 07:00 Results - Labs CBC & Chem 7: 02/04/18 05:30 02/04/18 05:30 Laboratory Results - last 24 hr 02/04/18 02/04/18 02/04/18 05:12 05:30 05:30 WBC 23.6 H RBC 3.68 L Hgb 12.2 Hct 37.0 MCV 100.3 H MCH 33.2 MCHC 33.1 RDW 14.5 Plt Count 348 MPV 6.9 L Puncture Site Right radial Patient Temperature 98.6 O2 Saturation 96 ABG pH 7.37 L ABG pCO2 63 H* ABG pO2 122 H ABG HCO3 36 H ABG O2 Content 17.9 ABG Base Excess 10.3 H ABG Methemoglobin 1.3 Howard Test Present Hemoglobin 13.1 Carboxyhemoglobin 0.7 O2 Delivery Device Nasal cannula Liter Flow 3.00 Critical Value Yes Sodium 136 Potassium 4.0 Chloride 93 L Carbon Dioxide 38.9 H Anion Gap 4 L BUN 46 H Creatinine 0.91 Estimated GFR 65 L POC Glucose Random Glucose 180 H Calcium 8.7 Phosphorus 3.7 D Magnesium 2.2 B-Natriuretic Peptide 02/04/18 02/04/18 05:30 07:50 WBC RBC Hgb Hct MCV MCH MCHC RDW Plt Count MPV Puncture Site Patient Temperature O2 Saturation ABG pH ABG pCO2 ABG pO2 ABG HCO3 ABG O2 Content ABG Base Excess ABG Methemoglobin Howard Test Hemoglobin Carboxyhemoglobin O2 Delivery Device Liter Flow Critical Value Sodium Potassium Chloride Carbon Dioxide Anion Gap BUN Creatinine Estimated GFR POC Glucose 265 H Random Glucose Calcium Phosphorus Magnesium B-Natriuretic Peptide 2184 H Microbiology 01/31/18 17:18 Blood - Peripheral Aerobic Blood Culture - Preliminary No growth in 4 days 01/31/18 17:18 Blood - Peripheral Anaerobic Blood Culture - Preliminary No growth in 4 days 01/31/18 17:22 Blood - Peripheral Aerobic Blood Culture - Preliminary No growth in 4 days 01/31/18 17:22 Blood - Peripheral Anaerobic Blood Culture - Preliminary No growth in 4 days - Imaging Impressions Chest X-Ray 02/04/18 00:00 CONCLUSION: No acute cardiopulmonary disease identified. Assessment and Plan - Plan 52-year-old female admitted with cardiogenic shock with hypoxia requiring pressors. Has been weaned off of pressors and oxygen and is now persistently tachycardic. Status post left heart cath with minimally obstructive CAD, likely had minimally elevated troponin secondary to demand ischemia. Acute respiratory distress COPD exacerbation is evident today at the least clinically. Independent review chest x-ray shows no acute infiltrates or findings otherwise., will increase IV Solu-Medrol, white count is increasing could be secondary to steroids versus possible infection Obtaining ABG given somnolence today. Will decrease Lopressor dose and start Cardizem as beta-blockers could be affecting this Severe systolic dysfunction Status post cardiogenic shock w/ likely nonischemic cardiomyopathy per cards Tachycardia -Obtain an EKG today, depending upon results we will consider starting Cardizem holding Lopressor in light of severe COPD exacerbation -Continue aspirin, start low dose lisinopril when BP more stable History of tongue cancer -N.p.o., continue tube feeds -pilocarpine for xerostomia leuokocytosis - likely 2/2 steroids, monitor clinically for any sx of infx otherwise Neuro: Continue home Mirapex. dispo: stable for transfer out of ICU.
[2018-02-04] MEDS ORDERED: MethylPREDNISolone Sod Succinate Inj 125 MG/2 ML Vial IV.PUSH SCH (13:00)
[2018-02-04] MEDS ORDERED: dilTIAZem 30 MG Tablet PO SCH (13:00)
[2018-02-04] MEDS: Tiotropium Bromide 18 MCG/ACT Inhaler INH SCH (13:48)
[2018-02-04] MEDS: Loratadine 10 MG Tablet PO SCH (13:48)
[2018-02-04] MEDS: Budesonide-Formoterol 160/4.5 MCG 6 GM Inhaler INH SCH ×2 (13:53→20:52)
[2018-02-04 15:50] LABS: ABG Base Excess 9.9 mmol/L (-2-2); ABG PCO2 52 mmHg (38-42); ABG PO2 106 mmHG (61-120)
--- NOTE | 2018-02-04 16:06 | P.PNCA ---
Subjective Interval history: Patient denies any chest pain, pressure, palpitations or edema. Patient does complain of shortness of breath at this time. Throughout the night patient's respiratory status diminished and was placed on BiPAP, patient currently on 3L nasal cannula. Patient appears to be restless with labored breathing. Medications and Allergies Allergies Allergy/AdvReac Type Severity Reaction Status Date / Time moxifloxacin Allergy Severe Shortness Verified 01/31/18 16:36 of Breath penicillin G Allergy Severe SHORT OF Verified 01/31/18 16:36 BREATH tramadol Allergy Severe SHORT OF Verified 01/31/18 16:36 BREATH Home Medications Medication Instructions Recorded Confirmed Type bisoprolol fumarate 2.5 mg PO DAILY 01/31/18 01/31/18 History fluticasone-salmeterol [Advair 1 inh INHALATION BID 01/31/18 01/31/18 History Diskus] loratadine 10 mg PO DAILY 01/31/18 01/31/18 History pantoprazole 40 mg PO DAILY 01/31/18 01/31/18 History paroxetine HCl 20 mg PO DAILY 01/31/18 01/31/18 History pilocarpine HCl 7.5 mg PO TID 01/31/18 01/31/18 History pramipexole 0.5 mg PO QPM 01/31/18 01/31/18 History tiotropium bromide [Spiriva with 1 cap INHALATION DAILY 01/31/18 01/31/18 History HandiHaler] Active Medications: Active Medications Acetaminophen (Tylenol) 650 mg PO Q6H PRN PRN Reason: PAIN 1-10 AND/OR FEVER >101F Al Hydroxide/Mg Hydroxide (Milk Of Nubia Liq) 30 ml PO Q12H PRN PRN Reason: Mild Constipation Albuterol (Duoneb Neb (Williams)) 1 ampul NEB Q6HR NEB [facility] Last Admin: 02/04/18 08:13 Dose: 1 ampul Aspirin (Aspirin Chew) 81 mg G-TUBE DAILY [facility] Last Admin: 02/04/18 08:50 Dose: 81 mg Bisacodyl (Dulcolax Supp) 10 mg RECTAL DAILY PRN PRN Reason: SEVERE CONSITIPATION Budesonide/Formoterol Fumarate (Symbicort 160/4.5 Mcg Inh) 2 puff INH BID [facility] Last Admin: 02/04/18 13:53 Dose: Not Given Carvedilol (Coreg) 6.25 mg PO BID [facility] Chlorhexidine Gluconate (Chlorhexidine 2% Cloth) 3 pack TOPICAL DAILY@0400 [facility] Stop: 02/06/18 03:59 Last Admin: 02/04/18 04:34 Dose: Not Given Chlorhexidine Gluconate (Chlorhexidine 2% Cloth) 3 pack TOPICAL DAILY@0400 PRN PRN Reason: Extra cloth needed Stop: 02/06/18 03:59 Heparin Sodium (Porcine) (Heparin Inj) 5,000 units IV.PUSH UNSCH PRN PRN Reason: aPTT < 25 Heparin Sodium/Dextrose (Heparin/D5w 25,000 U/250 Ml) 25,000 unit in 250 mls @ 0 mls/hr IV.CONT TITRATE PRN; Protocol PRN Reason: Per Protocol Last Titration: 02/01/18 19:41 Dose: 0 units/hr, 0 mls/hr Ipratropium [place]wood (Atrovent Neb) 2.5 mg NEB Q2HR NEB PRN PRN Reason: SHORTNESS OF BREATH/WHEEZING Last Admin: 02/04/18 01:32 Dose: 0.5 mg Lactulose (Lactulose Liq) 30 ml PO DAILY PRN PRN Reason: SEVERE CONSITIPATION Loratadine (Claritin) 10 mg PO DAILY [facility] Last Admin: 02/04/18 13:48 Dose: Not Given Lorazepam (Ativan Inj) 1 mg IV.PUSH Q4H PRN PRN Reason: ANXIETY Last Admin: 02/04/18 08:50 Dose: 1 mg Methylprednisolone Sodium Succinate (Solumedrol Inj) 125 mg IV.PUSH Q8H [facility] Last Admin: 02/04/18 13:53 Dose: 125 mg Miscellaneous (Pill Splitter) 1 each OTHER UNSCH PRN PRN Reason: SEE LABEL COMMENTS Ondansetron HCl (Zofran Inj) 4 mg IV.PUSH Q6H PRN PRN Reason: NAUSEA OR VOMITING Last Admin: 02/04/18 00:44 Dose: 4 mg Pantoprazole Sodium (Protonix Inj) 40 mg IV.PUSH DAILY [facility] Last Admin: 02/04/18 08:49 Dose: 40 mg Paroxetine HCl (Paxil) 20 mg PO DAILY [facility] Last Admin: 02/04/18 08:51 Dose: 20 mg Ptownmed (Bisoprolol (2.5 Mg)) 0 each PO DAILY [facility] Pilocarpine HCl (Salagen) 7.5 mg PO TID [facility] Last Admin: 02/04/18 13:53 Dose: 7.5 mg Pramipexole Dihydrochloride (Mirapex) 0.5 mg PO HS [facility] Last Admin: 02/03/18 21:14 Dose: 0.5 mg Sacubitril/Valsartan (Entresto 24 Mg/26 Mg Tablet) 1 tab PO BID [facility] Senna/Docusate Sodium (Pauline-Colace) 1 tab PO BID [facility] Last Admin: 02/04/18 08:51 Dose: 1 tab Sennosides (Senokot) 17.2 mg PO Q12H PRN PRN Reason: Moderate Constipation Sodium Chloride (Ns Flush) 2 ml IV.FLUSH BID [facility] Last Admin: 02/04/18 08:51 Dose: 2 ml Sodium Chloride (Ns Flush) 2 ml IV.FLUSH PRN PRN PRN Reason: FLUSH AFTER USING IV ACCESS Terbutaline Sulfate (Brethine Inj) 1 mg SQ ONCE PRN PRN Reason: Extravasation Tiotropium [place] (Spiriva 18 Mcg Inh) 18 mcg INH DAILY [facility] Last Admin: 02/04/18 13:48 Dose: Not Given Physical Exam Vital signs: Vital Signs 02/03/18 16:38 02/03/18 17:04 02/03/18 17:52 Temperature Pulse Rate 116 H 117 H 118 H Respiratory Rate 25 H Blood Pressure Pulse Oximetry 02/03/18 19:00 02/03/18 19:46 02/03/18 20:00 Temperature 97.5 F L Pulse Rate 121 H 119 H 118 H Respiratory Rate 22 24 Blood Pressure 129/97 H Pulse Oximetry 97 02/03/18 21:00 02/03/18 22:00 02/03/18 23:00 Temperature 97.8 F Pulse Rate 124 H 124 H 135 H Respiratory Rate 22 Blood Pressure 133/97 H Pulse Oximetry 96 02/04/18 00:00 02/04/18 01:00 02/04/18 01:36 Temperature Pulse Rate 118 H 118 H 127 H Respiratory Rate 26 H Blood Pressure Pulse Oximetry 02/04/18 02:00 02/04/18 03:00 02/04/18 04:00 Temperature 97.6 F Pulse Rate 118 H 125 H 116 H Respiratory Rate 22 Blood Pressure 125/96 H Pulse Oximetry 96 02/04/18 04:32 02/04/18 05:00 02/04/18 06:00 Temperature Pulse Rate 125 H 116 H 116 H Respiratory Rate 24 Blood Pressure Pulse Oximetry 02/04/18 06:34 02/04/18 07:00 02/04/18 08:15 Temperature 98.5 F Pulse Rate 121 H 88 Respiratory Rate 17 17 Blood Pressure 122/93 H Pulse Oximetry 96 99 02/04/18 11:00 Temperature 98.3 F Pulse Rate 111 H Respiratory Rate Blood Pressure 107/82 Pulse Oximetry 99 Intake & Output 02/03/18 02/04/18 02/04/18 18:59 06:59 18:59 Intake Total 100 / 100 0 / 0 Output Total 250 / 250 750 / 750 Balance -150 / -150 -750 / -750 Weight 37 kg Intake: Oral 100 / 100 0 / 0 Output: Urine Amount (Catheter) 250 / 250 750 / 750 Indwelling Urethral Catheter 250 / 250 750 / 750 - Constitutional moderate distress - Routine HEENT Exam Head: Present: normocephalic Eye: Present: PERRL ENT: Present: mucous membranes moist - Routine Neck Exam Present: full ROM - Routine Respiratory Exam Present: decreased breath sounds, diminished air movement - Routine Cardiovascular Exam Present: S1, S2, tachycardia. Absent: gallop, rubs, S3, S4 - Routine Abdominal Exam Present: normoactive bowel sounds - Routine Extremities Exam Present: full ROM, pulses intact, normal capillary refill. Absent: cyanosis, clubbing, edema - Routine Skin Exam Present: intact - Routine Neurological Exam Present: oriented X3 - Detailed Neurological Exam: Coma Scale Eye Opening: Spontaneous Verbal Response: Oriented Motor Response: Obey commands Pernell Coma Scale Total: 15 - Routine Psychiatric Exam Present: normal affect - Urinary Catheter Management Indwelling Urethral Catheter Cath placed during this visit: yes, but has since been removed by the nurse Reason for continuing: Hourly intake/output Insertion date: 02/01/18 Insertion time: 00:40 Removal date: 02/01/18 Removal time: 07:00 Results 02/04/18 05:30 02/04/18 05:30 Cardiac Enzymes 02/04/18 Range/Units 05:30 B-Natriuretic Peptide 2184 H (0-100) pg/mL Coagulation 02/04/18 Range/Units 05:30 B-Natriuretic Peptide 2184 H (0-100) pg/mL CBC 02/03/18 02/04/18 Range/Units 04:50 05:30 WBC 18.7 H 23.6 H (4.0-11.0) th/mm3 RBC 3.37 L 3.68 L (4.00-5.30) mil/mm3 Hgb 11.3 L 12.2 (11.6-15.3) gm/dL Hct 33.0 L 37.0 (35.0-46.0) % Plt Count 339 348 (150-450) th/mm3 Comprehensive Metabolic Panel 02/03/18 02/04/18 Range/Units 04:50 05:30 Sodium 133 L 136 (136-145) meq/L Potassium 3.9 4.0 (3.5-5.1) meq/L Chloride 94 L 93 L (98-107) meq/L Carbon Dioxide 32.6 H D 38.9 H (21.0-32.0) meq/L BUN 32 H 46 H (7-18) mg/dL Creatinine 0.84 0.91 (0.50-1.00) mg/dL Calcium 8.3 L 8.7 (8.5-10.1) mg/dL Intake and Output 02/04/18 02/04/18 02/04/18 06:59 14:59 22:59 Intake Total 0 / 0 Output Total 750 / 750 Balance -750 / -750 Intake: Oral 0 / 0 Output: Urine Amount (Catheter) 750 / 750 Indwelling Urethral Catheter 750 / 750 Other: Weight 37 kg - Imaging and Cardiology Imaging: Impressions Chest X-Ray 02/04/18 00:00 CONCLUSION: No acute cardiopulmonary disease identified. Assessment and Plan - Assessment (1) NSTEMI (non-ST elevated myocardial infarction) Code(s): I21.4 - Non-ST elevation (NSTEMI) myocardial infarction Status: Acute (2) COPD (chronic obstructive pulmonary disease) Code(s): J44.9 - Chronic obstructive pulmonary disease, unspecified Status: Acute (3) Hypotension Code(s): I95.9 - Hypotension, unspecified Status: Acute (4) Tongue cancer Code(s): C02.9 - Malignant neoplasm of tongue, unspecified Status: Acute - Plan Status post heart cath showing mild nonobstructive coronary artery disease, severe left ventricular systolic dysfunction, consistent with severe nonischemic cardiomyopathy. Patient having severe exacerbation of COPD, will consult pulmonology. We will start patient on Coreg 6.25 mg twice daily and Entresto 24 mg / 26 mg twice daily for congestive heart failure. Overall prognosis remains guarded. We will follow patient during her hospitalization. Patient was seen and evaluated by Dr. Rizzo who participated in care, management and decision-making. - Attending Attestation Patient seen and examined. I reviewed and agree with the evaluation and plan as presented. Start carvedilol and Entresto for severe nonischemic cardiomyopathy. Pulmonary evaluation for COPD. Also recommend ID and oncology evaluation. Overall prognosis remains guarded.
[2018-02-04] MEDS: Clindamycin 600 mg/NS Premix 600 MG/50 ML PIGGYBACK IV.SIG SCH (20:41)
[2018-02-04] MEDS: Carvedilol 6.25 MG Tablet PO SCH (20:43)
--- NOTE | 2018-02-04 22:48 | MB ---
cc: Pablo Lazaro MD,Kennedi YOUNG DATE: 02/04/2018 REQUESTING PHYSICIAN: Kennedi Rizzo MD REASON FOR CONSULTATION: Pulmonary management. HISTORY OF PRESENT ILLNESS: Ms. Georges is a 52-year-old female with a history of CA of the tongue, status post resection, chemotherapy, radiation treatment. She has a history of dysphagia and aspiration. She has a G-tube in place. The patient came to the hospital. She was found to have ST-T changes. The patient had a cardiac catheterization which did not show any obstructive disease. She had a CT of the chest that did not show any pulmonary embolism. It shows significant emphysema and bronchiectasis changes. The patient was hypotensive. Now, she is off pressors. She was on BiPAP. She is on nasal cannula. She complains of shortness of breath. She has congestion and tube feeding like material was aspirated. She does not have any fever. PAST MEDICAL HISTORY: Significant for history of CA of the tongue, status post resection, chemotherapy and radiation treatment; COPD; history of hysterectomy; G-tube placement. MEDICATIONS: She is currently takin. Albuterol and Atrovent nebulizer treatments. 2. Symbicort twice a day. 3. Coreg 6.25 mg twice a day. 4. Heparin drip. 5. Solu-Medrol 125 mg q.6 hours. 6. Paxil 20 mg a day. 7. Protonix 40 mg a day. 8. Zofran p.r.n. 9. Spiriva once a day. ALLERGIES: SHE IS ALLERGIC TO MOXIFLOXACIN, PENICILLIN AND TRAMADOL. SOCIAL HISTORY: She has a history of smoking in the past. She is not working anymore. FAMILY HISTORY: Unremarkable. REVIEW OF SYSTEMS: She has lost weight. She has congestion in her chest. No DVT or pulmonary embolism. PHYSICAL EXAMINATION: GENERAL: Frail, elderly female, mildly short of breath. VITAL SIGNS: Blood pressure 113/71, heart rate 116, respirations 20, temperature 98.6. HEENT: She has radiation changes. Her oral mucosa is normal. She has thick secretions. LUNGS: She has scattered rhonchi. CARDIOVASCULAR: S1, S2 normal. ABDOMEN: Soft, nondistended. She has PEG tube in place. EXTREMITIES: No edema. IMPRESSION: 1. Respiratory insufficiency. 2. Bronchiectasis. 3. Chronic obstructive pulmonary disease with exacerbation. 4. Leukocytosis. 5. Status post cardiac catheterization. 6. History of cancer of the tongue, status post resection surgery and radiation treatment. PLAN: I discussed with the patient that I will start her on clindamycin 600 mg q.8 hours. I will decrease Solu-Medrol to 40 mg q.6 hours. Continue aerosol treatment. Encourage oral suction. Her tube feedings are on hold for concern for aspiration. She is on heparin. Further treatment will depend on her course in the hospital. Thank you, Dr. Rizzo, for this consult. MD DEDE Nunn/wilmer , 07:26 PM , 07:34 PM
[2018-02-05] MEDS: MethylPREDNISolone Sod Succinate Inj 40 MG/ML Vial IV.PUSH SCH ×4 (01:19→21:36)
[2018-02-05] MEDS: Clindamycin 600 mg/NS Premix 600 MG/50 ML PIGGYBACK IV.SIG SCH ×2 (03:30→12:20)
[2018-02-05] MEDS: Chlorhexidine Gluconate 2% 1 Pack (2 Cloths) TOPICAL SCH (05:11)
[2018-02-05 06:01] LABS: Hematocrit 34.1 % (35.0-46.0); Hemoglobin 11.3 gm/dL (11.6-15.3); Mean Corpuscular HGB Conc 33.1 % (32.0-36.0); Mean Corpuscular Hemoglobin 33.6 pg (27.0-34.0); Mean Corpuscular Volume 101.4 fL (80.0-100.0); Mean Platelet Volume 7.3 fL (7.0-11.0); Platelet Count 279 th/mm3 (150-450); Red Blood Count 3.36 mil/mm3 (4.00-5.30); Red Cell Distribution Width 14.8 % (11.6-17.2); White Blood Count 14.3 th/mm3 (4.0-11.0)
[2018-02-05 06:38] LABS: Anion Gap 3 meq/L (5-15); Blood Urea Nitrogen 48 mg/dL (7-18); Calcium 8.6 mg/dL (8.5-10.1); Carbon Dioxide 37.4 meq/L (21.0-32.0); Chloride 99 meq/L (98-107); Glomerular Filtration Rate Greater Than 89 mL/min (>89); Glucose,Random 143 mg/dL (74-106); Magnesium 2.4 mg/dL (1.5-2.5); Phosphorus 2.1 mg/dL (2.5-4.9); Potassium 4.3 meq/L (3.5-5.1); Sodium 139 meq/L (136-145)
[2018-02-05] MEDS: Budesonide-Formoterol 160/4.5 MCG 6 GM Inhaler INH SCH ×2 (08:49→21:36)
[2018-02-05] MEDS: Pantoprazole Inj 40 MG Vial IV.PUSH SCH (08:49)
[2018-02-05] MEDS: Tiotropium Bromide 18 MCG/ACT Inhaler INH SCH (08:50)
[2018-02-05] MEDS: Carvedilol 6.25 MG Tablet PO SCH ×2 (08:52→21:36)
[2018-02-05] MEDS: Loratadine 10 MG Tablet PO SCH (08:52)
[2018-02-05] MEDS: Senna/Docusate Sodium 8.6/50 MG Tablet PO SCH ×2 (08:52→21:35)
[2018-02-05] MEDS: Pilocarpine HCl 5 MG Tablet PO SCH ×3 (08:52→17:33)
--- NOTE | 2018-02-05 09:30 | P.PNCA ---
Subjective Interval history: Patient denies any chest pain, pressure, palpitations or edema. Patient still complains of shortness of breath with any activity. Medications and Allergies Allergies Allergy/AdvReac Type Severity Reaction Status Date / Time moxifloxacin Allergy Severe Shortness Verified 01/31/18 16:36 of Breath penicillin G Allergy Severe SHORT OF Verified 01/31/18 16:36 BREATH tramadol Allergy Severe SHORT OF Verified 01/31/18 16:36 BREATH Home Medications Medication Instructions Recorded Confirmed Type bisoprolol fumarate 2.5 mg PO DAILY 01/31/18 01/31/18 History fluticasone-salmeterol [Advair 1 inh INHALATION BID 01/31/18 01/31/18 History Diskus] loratadine 10 mg PO DAILY 01/31/18 01/31/18 History pantoprazole 40 mg PO DAILY 01/31/18 01/31/18 History paroxetine HCl 20 mg PO DAILY 01/31/18 01/31/18 History pilocarpine HCl 7.5 mg PO TID 01/31/18 01/31/18 History pramipexole 0.5 mg PO QPM 01/31/18 01/31/18 History tiotropium bromide [Spiriva with 1 cap INHALATION DAILY 01/31/18 01/31/18 History HandiHaler] Active Medications: Active Medications Acetaminophen (Tylenol) 650 mg PO Q6H PRN PRN Reason: PAIN 1-10 AND/OR FEVER >101F Al Hydroxide/Mg Hydroxide (Milk Of Nubia Liq) 30 ml PO Q12H PRN PRN Reason: Mild Constipation Aspirin (Aspirin Chew) 81 mg G-TUBE DAILY ON LICENSE OF [facility] Last Admin: 02/05/18 08:52 Dose: 81 mg Bisacodyl (Dulcolax Supp) 10 mg RECTAL DAILY PRN PRN Reason: SEVERE CONSITIPATION Budesonide/Formoterol Fumarate (Symbicort 160/4.5 Mcg Inh) 2 puff INH BID ON LICENSE OF [facility] Last Admin: 02/05/18 08:49 Dose: 2 puff Carvedilol (Coreg) 6.25 mg PO BID ON LICENSE OF [facility] Last Admin: 02/05/18 08:52 Dose: 6.25 mg Chlorhexidine Gluconate (Chlorhexidine 2% Cloth) 3 pack TOPICAL DAILY@0400 ON LICENSE OF [facility] Stop: 02/06/18 03:59 Last Admin: 02/05/18 05:11 Dose: Not Given Chlorhexidine Gluconate (Chlorhexidine 2% Cloth) 3 pack TOPICAL DAILY@0400 PRN PRN Reason: Extra cloth needed Stop: 02/06/18 03:59 Heparin Sodium (Porcine) (Heparin Inj) 5,000 units IV.PUSH UNSCH PRN PRN Reason: aPTT < 25 Heparin Sodium/Dextrose (Heparin/D5w 25,000 U/250 Ml) 25,000 unit in 250 mls @ 0 mls/hr IV.CONT TITRATE PRN; Protocol PRN Reason: Per Protocol Last Titration: 02/01/18 19:41 Dose: 0 units/hr, 0 mls/hr Clindamycin/Sodium Chloride (Cleocin 600 Mg/Ns Premix) 600 mg in 50 mls @ 100 mls/hr IV.SIG Q8H ON LICENSE OF [facility] Stop: 02/05/18 11:59 Last Infusion: 02/05/18 04:00 Dose: Infused Ipratropium [place] (Atrovent Neb) 2.5 mg NEB Q2HR NEB PRN PRN Reason: SHORTNESS OF BREATH/WHEEZING Last Admin: 02/04/18 01:32 Dose: 0.5 mg Lactulose (Lactulose Liq) 30 ml PO DAILY PRN PRN Reason: SEVERE CONSITIPATION Loratadine (Claritin) 10 mg PO DAILY ON LICENSE OF [facility] Last Admin: 02/05/18 08:52 Dose: 10 mg Lorazepam (Ativan Inj) 1 mg IV.PUSH Q4H PRN PRN Reason: ANXIETY Last Admin: 02/05/18 06:44 Dose: 1 mg Methylprednisolone Sodium Succinate (Solumedrol Inj) 40 mg IV.PUSH Q6H [facility] Last Admin: 02/05/18 08:49 Dose: 40 mg Miscellaneous (Pill Splitter) 1 each OTHER UNSCH PRN PRN Reason: SEE LABEL COMMENTS Ondansetron HCl (Zofran Inj) 4 mg IV.PUSH Q6H PRN PRN Reason: NAUSEA OR VOMITING Last Admin: 02/04/18 00:44 Dose: 4 mg Pantoprazole Sodium (Protonix Inj) 40 mg IV.PUSH DAILY [facility] Last Admin: 02/05/18 08:49 Dose: 40 mg Paroxetine HCl (Paxil) 20 mg PO DAILY [facility] Last Admin: 02/05/18 08:52 Dose: 20 mg Ptownmed (Bisoprolol (2.5 Mg)) 0 each PO DAILY ON LICENSE OF [facility] Pilocarpine HCl (Salagen) 7.5 mg PO TID ON LICENSE OF [facility] Last Admin: 02/05/18 08:52 Dose: 7.5 mg Pramipexole Dihydrochloride (Mirapex) 0.5 mg PO HS ON LICENSE OF [facility] Last Admin: 02/04/18 20:42 Dose: 0.5 mg Sacubitril/Valsartan (Entresto 24 Mg/26 Mg Tablet) 1 tab PO BID ON LICENSE OF [facility] Last Admin: 02/05/18 08:52 Dose: 1 tab Senna/Docusate Sodium (Pauline-Colace) 1 tab PO BID ON LICENSE OF [facility] Last Admin: 02/05/18 08:52 Dose: 1 tab Sennosides (Senokot) 17.2 mg PO Q12H PRN PRN Reason: Moderate Constipation Sodium Chloride (Ns Flush) 2 ml IV.FLUSH BID ON LICENSE OF [facility] Last Admin: 02/05/18 08:52 Dose: 2 ml Sodium Chloride (Ns Flush) 2 ml IV.FLUSH PRN PRN PRN Reason: FLUSH AFTER USING IV ACCESS Terbutaline Sulfate (Brethine Inj) 1 mg SQ ONCE PRN PRN Reason: Extravasation Tiotropium [place] (Spiriva 18 Mcg Inh) 18 mcg INH DAILY ON LICENSE OF [facility] Last Admin: 02/05/18 08:50 Dose: 18 mcg Physical Exam Vital signs: Vital Signs 02/04/18 11:00 02/04/18 12:00 02/04/18 13:00 Temperature 98.3 F Pulse Rate 111 H 118 H 115 H Respiratory Rate Blood Pressure 107/82 Pulse Oximetry 99 02/04/18 14:00 02/04/18 15:00 02/04/18 16:00 Temperature 98.6 F Pulse Rate 113 H 116 H 111 H Respiratory Rate 17 Blood Pressure 113/79 Pulse Oximetry 100 02/04/18 17:00 02/04/18 18:00 02/04/18 19:00 Temperature 97.5 F L Pulse Rate 121 H 121 H 116 H Respiratory Rate 22 Blood Pressure 110/80 Pulse Oximetry 100 02/04/18 20:00 02/04/18 21:00 02/04/18 21:18 Temperature Pulse Rate 110 H 112 H Respiratory Rate Blood Pressure Pulse Oximetry 98 02/04/18 22:00 02/04/18 23:00 02/05/18 00:00 Temperature 98 F Pulse Rate 102 H 104 H 100 H Respiratory Rate 20 Blood Pressure 104/78 Pulse Oximetry 99 02/05/18 01:00 02/05/18 02:00 02/05/18 03:00 Temperature 97.5 F L Pulse Rate 103 H 103 H 106 H Respiratory Rate 20 Blood Pressure 95/70 L Pulse Oximetry 99 02/05/18 04:00 02/05/18 05:00 02/05/18 06:00 Temperature Pulse Rate 107 H 110 H 109 H Respiratory Rate Blood Pressure Pulse Oximetry Intake & Output 02/04/18 02/05/18 02/05/18 18:59 06:59 18:59 Intake Total 120 / 120 200 / 200 Output Total 450 / 450 390 / 390 Balance -330 / -330 -190 / -190 Weight 38.5 kg Intake: IV 100 / 100 Cleocin 600 mg/NS Premix 600 mg 100 / 100 In 50 ml @ 100 mls/hr IV.SIG Q8H [facility] Rx#:[id number] Oral 120 / 120 40 / 40 Tube Feeding 0 / 0 Tube Irrigant 60 / 60 Output: Urine Amount (Catheter) 450 / 450 390 / 390 Indwelling Urethral Catheter 450 / 450 390 / 390 - Constitutional no acute distress - Routine HEENT Exam Head: Present: normocephalic Eye: Present: PERRL ENT: Present: mucous membranes moist - Routine Neck Exam Present: full ROM - Routine Respiratory Exam Present: rhonchi, distant breath sounds, diminished air movement - Routine Cardiovascular Exam Present: S1, S2. Absent: gallop, rubs - Routine Abdominal Exam Present: normoactive bowel sounds - Routine Extremities Exam Present: full ROM, pulses intact, normal capillary refill. Absent: cyanosis, clubbing, edema - Routine Skin Exam Present: intact - Routine Neurological Exam Present: oriented X3 - Detailed Neurological Exam: Coma Scale Eye Opening: Spontaneous Verbal Response: Oriented Motor Response: Obey commands Pernell Coma Scale Total: 15 - Routine Psychiatric Exam Present: normal affect - Urinary Catheter Management Indwelling Urethral Catheter Cath placed during this visit: yes, but has since been removed by the nurse Reason for continuing: Hourly intake/output Insertion date: 02/01/18 Insertion time: 00:40 Removal date: 02/01/18 Removal time: 07:00 Results 02/05/18 04:38 02/05/18 04:38 Cardiac Enzymes 02/04/18 Range/Units 05:30 B-Natriuretic Peptide 2184 H (0-100) pg/mL Coagulation 02/04/18 Range/Units 05:30 B-Natriuretic Peptide 2184 H (0-100) pg/mL CBC 02/04/18 02/05/18 Range/Units 05:30 04:38 WBC 23.6 H 14.3 H (4.0-11.0) th/mm3 RBC 3.68 L 3.36 L (4.00-5.30) mil/mm3 Hgb 12.2 11.3 L (11.6-15.3) gm/dL Hct 37.0 34.1 L (35.0-46.0) % Plt Count 348 279 (150-450) th/mm3 Comprehensive Metabolic Panel 02/04/18 02/05/18 Range/Units 05:30 04:38 Sodium 136 139 (136-145) meq/L Potassium 4.0 4.3 (3.5-5.1) meq/L Chloride 93 L 99 (98-107) meq/L Carbon Dioxide 38.9 H 37.4 H (21.0-32.0) meq/L BUN 46 H 48 H (7-18) mg/dL Creatinine 0.91 0.58 (0.50-1.00) mg/dL Calcium 8.7 8.6 (8.5-10.1) mg/dL Intake and Output 02/04/18 02/05/18 02/05/18 22:59 06:59 14:59 Intake Total 170 / 170 150 / 150 Output Total 450 / 450 390 / 390 Balance -280 / -280 -240 / -240 Intake: IV 50 / 50 50 / 50 Cleocin 600 mg/NS Premix 600 mg 50 / 50 50 / 50 In 50 ml @ 100 mls/hr IV.SIG Q8H ON LICENSE OF [facility] Rx#:[id number] Oral 120 / 120 40 / 40 Tube Feeding 0 / 0 Tube Irrigant 60 / 60 Output: Urine Amount (Catheter) 450 / 450 390 / 390 Indwelling Urethral Catheter 450 / 450 390 / 390 Other: Weight 38.5 kg - Imaging and Cardiology Imaging: Impressions Chest X-Ray 02/04/18 00:00 CONCLUSION: No acute cardiopulmonary disease identified. Assessment and Plan - Assessment (1) NSTEMI (non-ST elevated myocardial infarction) Code(s): I21.4 - Non-ST elevation (NSTEMI) myocardial infarction Status: Acute (2) COPD (chronic obstructive pulmonary disease) Code(s): J44.9 - Chronic obstructive pulmonary disease, unspecified Status: Acute (3) Hypotension Code(s): I95.9 - Hypotension, unspecified Status: Acute (4) Tongue cancer Code(s): C02.9 - Malignant neoplasm of tongue, unspecified Status: Acute - Plan Status post heart cath showing mild nonobstructive coronary artery disease, severe left ventricular systolic dysfunction, consistent with severe nonischemic cardiomyopathy. COPD exacerbation, pulmonary evaluation in progress. Infectious disease evaluation in progress, due to elevated white blood cell count. Patient has a history of tongue cancer and has received chemo and radiation in the past. Oncology evaluation in progress. We started the patient on Coreg 6.25 mg twice daily and Entresto 24 mg / 26 mg twice daily for congestive heart failure. Overall prognosis remains guarded. We will follow patient during her hospitalization. Patient was seen and evaluated by Dr. Rizzo who participated in care, management and decision-making. - Attending Attestation Patient seen and examined. I reviewed and agree with the evaluation and plan as presented. Continue and titrate tx for CHF including carvedilol and Entresto. Pulmonary evaluation. Increase activity. Overall prognosis remains guarded. D/w pt and family.
--- NOTE | 2018-02-05 11:06 | P.PNPL ---
Subjective Interval history: 52 YOWf with ca tongue, s/p resection, chemo radiation Sob better gets anxious which makes breathing worse On NC Mother at BS Has thick mucous Physical Exam Vital signs: Vital Signs 02/04/18 12:00 02/04/18 13:00 02/04/18 14:00 Temperature Pulse Rate 118 H 115 H 113 H Respiratory Rate Blood Pressure Pulse Oximetry 02/04/18 15:00 02/04/18 16:00 02/04/18 17:00 Temperature 98.6 F Pulse Rate 116 H 111 H 121 H Respiratory Rate 17 Blood Pressure 113/79 Pulse Oximetry 100 02/04/18 18:00 02/04/18 19:00 02/04/18 20:00 Temperature 97.5 F L Pulse Rate 121 H 116 H 110 H Respiratory Rate 22 Blood Pressure 110/80 Pulse Oximetry 100 02/04/18 21:00 02/04/18 21:18 02/04/18 22:00 Temperature Pulse Rate 112 H 102 H Respiratory Rate Blood Pressure Pulse Oximetry 98 02/04/18 23:00 02/05/18 00:00 02/05/18 01:00 Temperature 98 F Pulse Rate 104 H 100 H 103 H Respiratory Rate 20 Blood Pressure 104/78 Pulse Oximetry 99 02/05/18 02:00 02/05/18 03:00 02/05/18 04:00 Temperature 97.5 F L Pulse Rate 103 H 106 H 107 H Respiratory Rate 20 Blood Pressure 95/70 L Pulse Oximetry 99 02/05/18 05:00 02/05/18 06:00 02/05/18 07:00 Temperature 97.7 F Pulse Rate 110 H 109 H 114 H Respiratory Rate 22 Blood Pressure 111/81 Pulse Oximetry 98 02/05/18 08:00 02/05/18 09:00 02/05/18 10:00 Temperature Pulse Rate 105 H 107 H 105 H Respiratory Rate Blood Pressure Pulse Oximetry Intake & Output 02/04/18 02/05/18 02/05/18 18:59 06:59 18:59 Intake Total 120 / 120 200 / 200 Output Total 450 / 450 390 / 390 Balance -330 / -330 -190 / -190 Weight 38.5 kg Intake: IV 100 / 100 Cleocin 600 mg/NS Premix 600 mg 100 / 100 In 50 ml @ 100 mls/hr IV.SIG Q8H [facility] Rx#:[id number] Oral 120 / 120 40 / 40 Tube Feeding 0 / 0 Tube Irrigant 60 / 60 Output: Urine Amount (Catheter) 450 / 450 390 / 390 Indwelling Urethral Catheter 450 / 450 390 / 390 GENERAL: Thin built frail elderly female, mild sob SKIN: Warm and dry. HEAD: Normocephalic. EYES: No scleral icterus. No injection or drainage. NECK: Supple, trachea midline. No JVD or lymphadenopathy. CARDIOVASCULAR: Regular rate and rhythm without murmurs, gallops, or rubs. RESPIRATORY: Breath sounds equal bilaterally. No accessory muscle use. Scattered rhonchi GASTROINTESTINAL: Abdomen soft, non-tender, nondistended. PEG tube MUSCULOSKELETAL: No cyanosis, or edema. BACK: Nontender without obvious deformity. No CVA tenderness. - Urinary Catheter Management Indwelling Urethral Catheter Cath placed during this visit: yes, but has since been removed by the nurse Reason for continuing: Hourly intake/output Insertion date: 02/01/18 Insertion time: 00:40 Removal date: 02/01/18 Removal time: 07:00 Assessment and Plan - Plan IMPRESSION: 1. Respiratory insufficiency. 2. Bronchiectasis. 3. Chronic obstructive pulmonary disease with exacerbation. 4. Leukocytosis. 5. Status post cardiac catheterization. 6. History of cancer of the tongue, status post resection surgery and radiation treatment. PLAN: Aerosol nebs Oral suction Cont Abx Supplement 02 Tube feeding DW pt and her mother at BS.
--- NOTE | 2018-02-05 11:20 | P.PN ---
Subjective Interval history: Nursing denies any deterioration since last night. Patient doing apparently better in terms of less respiratory distress today on nasal cannula. Calms down with Ativan. Physical Exam Vital signs: Vital Signs 02/04/18 12:00 02/04/18 13:00 02/04/18 14:00 Temperature Pulse Rate 118 H 115 H 113 H Respiratory Rate Blood Pressure Pulse Oximetry 02/04/18 15:00 02/04/18 16:00 02/04/18 17:00 Temperature 98.6 F Pulse Rate 116 H 111 H 121 H Respiratory Rate 17 Blood Pressure 113/79 Pulse Oximetry 100 02/04/18 18:00 02/04/18 19:00 02/04/18 20:00 Temperature 97.5 F L Pulse Rate 121 H 116 H 110 H Respiratory Rate 22 Blood Pressure 110/80 Pulse Oximetry 100 02/04/18 21:00 02/04/18 21:18 02/04/18 22:00 Temperature Pulse Rate 112 H 102 H Respiratory Rate Blood Pressure Pulse Oximetry 98 02/04/18 23:00 02/05/18 00:00 02/05/18 01:00 Temperature 98 F Pulse Rate 104 H 100 H 103 H Respiratory Rate 20 Blood Pressure 104/78 Pulse Oximetry 99 02/05/18 02:00 02/05/18 03:00 02/05/18 04:00 Temperature 97.5 F L Pulse Rate 103 H 106 H 107 H Respiratory Rate 20 Blood Pressure 95/70 L Pulse Oximetry 99 02/05/18 05:00 02/05/18 06:00 02/05/18 07:00 Temperature 97.7 F Pulse Rate 110 H 109 H 114 H Respiratory Rate 22 Blood Pressure 111/81 Pulse Oximetry 98 02/05/18 08:00 02/05/18 09:00 02/05/18 10:00 Temperature Pulse Rate 105 H 107 H 105 H Respiratory Rate Blood Pressure Pulse Oximetry Intake & Output 02/04/18 02/05/18 02/05/18 18:59 06:59 18:59 Intake Total 120 / 120 200 / 200 Output Total 450 / 450 390 / 390 Balance -330 / -330 -190 / -190 Weight 38.5 kg Intake: IV 100 / 100 Cleocin 600 mg/NS Premix 600 mg 100 / 100 In 50 ml @ 100 mls/hr IV.SIG Q8H [facility] Rx#:[id number] Oral 120 / 120 40 / 40 Tube Feeding 0 / 0 Tube Irrigant 60 / 60 Output: Urine Amount (Catheter) 450 / 450 390 / 390 Indwelling Urethral Catheter 450 / 450 390 / 390 Narrative: Transmitted upper airway sounds today, only minimal wheezing heard today, minimally labored breathing noted Heart sounds indicate mildly tachycardic rate, regular rhythm - Urinary Catheter Management Indwelling Urethral Catheter Cath placed during this visit: yes, but has since been removed by the nurse Reason for continuing: Hourly intake/output Insertion date: 02/01/18 Insertion time: 00:40 Removal date: 02/01/18 Removal time: 07:00 Results - Labs CBC & Chem 7: 02/05/18 04:38 02/05/18 04:38 Laboratory Results - last 24 hr 02/04/18 02/04/18 02/05/18 12:53 15:34 04:38 WBC 14.3 H RBC 3.36 L Hgb 11.3 L Hct 34.1 L MCV 101.4 H MCH 33.6 MCHC 33.1 RDW 14.8 Plt Count 279 MPV 7.3 Puncture Site Left radial Patient Temperature 98.6 O2 Saturation 96 ABG pH 7.44 H ABG pCO2 52 H* ABG pO2 106 ABG HCO3 35 H ABG O2 Content 16.8 ABG Base Excess 9.9 H ABG Methemoglobin 1.3 Howard Test Present Hemoglobin 12.4 Carboxyhemoglobin 0.9 O2 Delivery Device Nasal cannula Liter Flow 3.00 Critical Value Yes Sodium Potassium Chloride Carbon Dioxide Anion Gap BUN Creatinine Estimated GFR Random Glucose Lactic Acid 2.8 H Calcium Phosphorus Magnesium 02/05/18 04:38 WBC RBC Hgb Hct MCV MCH MCHC RDW Plt Count MPV Puncture Site Patient Temperature O2 Saturation ABG pH ABG pCO2 ABG pO2 ABG HCO3 ABG O2 Content ABG Base Excess ABG Methemoglobin Howard Test Hemoglobin Carboxyhemoglobin O2 Delivery Device Liter Flow Critical Value Sodium 139 Potassium 4.3 Chloride 99 Carbon Dioxide 37.4 H Anion Gap 3 L BUN 48 H Creatinine 0.58 Estimated GFR Greater than 89 Random Glucose 143 H Lactic Acid Calcium 8.6 Phosphorus 2.1 L D Magnesium 2.4 Microbiology 01/31/18 17:18 Blood - Peripheral Aerobic Blood Culture - Final No growth in 5 days 01/31/18 17:18 Blood - Peripheral Anaerobic Blood Culture - Final No growth in 5 days 01/31/18 17:22 Blood - Peripheral Aerobic Blood Culture - Final No growth in 5 days 01/31/18 17:22 Blood - Peripheral Anaerobic Blood Culture - Final No growth in 5 days 02/04/18 12:50 Sputum - Expectorated Sputum Gram Stain - Final Assessment and Plan - Plan 52-year-old female admitted with cardiogenic shock with hypoxia requiring pressors. Has been weaned off of pressors and oxygen and is now persistently tachycardic. Status post left heart cath with minimally obstructive CAD, likely had minimally elevated troponin secondary to demand ischemia. Acute respiratory distress COPD exacerbation -Partially improving since yesterday with the frequently dose IV steroids, pulmonology following, bronchodilators ABG showing slight improvement from yesterday morning to yesterday afternoon. Severe systolic dysfunction Status post cardiogenic shock w/ likely nonischemic cardiomyopathy per cards -appears to be sinus tachycardia upon my independent review of EKG -Continue aspirin, on Coreg and Entresto per cardiology History of tongue cancer -N.p.o., continue tube feeds -pilocarpine for xerostomia leuokocytosis -Steroids, improving Neuro: Continue home Mirapex. dispo: stable for transfer out of ICU.
[2018-02-05] MEDS ORDERED: [UNRECOGNIZED DRUG - OTHER] PO SCH (13:00)
[2018-02-05] MEDS ORDERED: BISOPROLOL 2.5 MG PO SCH (13:00)
--- NOTE | 2018-02-05 17:41 | ECG ---
Date Performed: 02/04/2018 Time Performed: 11:56:42 PTAGE: 52 years EKG: Sinus tachycardia Left axis deviation rSr'(V1) - probable normal variant Consider inferior and anterolateral ischemia Since the previous tracing, no significant change noted Abnormal ECG NO PREVIOUS TRACING DOCTOR: Moose Leija Interpretating Date/Time 02/05/2018 18:10:42
[2018-02-06] MEDS: MethylPREDNISolone Sod Succinate Inj 40 MG/ML Vial IV.PUSH SCH ×4 (02:00→21:29)
[2018-02-06 05:09] LABS: Hematocrit 33.2 % (35.0-46.0); Hemoglobin 11.1 gm/dL (11.6-15.3); Mean Corpuscular HGB Conc 33.6 % (32.0-36.0); Mean Corpuscular Hemoglobin 33.6 pg (27.0-34.0); Mean Corpuscular Volume 99.9 fL (80.0-100.0); Mean Platelet Volume 6.9 fL (7.0-11.0); Platelet Count 293 th/mm3 (150-450); Red Blood Count 3.32 mil/mm3 (4.00-5.30); Red Cell Distribution Width 14.5 % (11.6-17.2); White Blood Count 11.6 th/mm3 (4.0-11.0)
[2018-02-06 05:30] LABS: Anion Gap 3 meq/L (5-15); Blood Urea Nitrogen 47 mg/dL (7-18); Calcium 8.4 mg/dL (8.5-10.1); Carbon Dioxide 36.9 meq/L (21.0-32.0); Chloride 97 meq/L (98-107); Glomerular Filtration Rate Greater Than 89 mL/min (>89); Glucose,Random 127 mg/dL (74-106); Magnesium 2.2 mg/dL (1.5-2.5); Phosphorus 2.1 mg/dL (2.5-4.9); Potassium 4.6 meq/L (3.5-5.1); Sodium 137 meq/L (136-145)
[2018-02-06] MEDS: Pilocarpine HCl 5 MG Tablet PO SCH ×4 (08:56→17:15)
[2018-02-06] MEDS: Loratadine 10 MG Tablet PO SCH (08:56)
[2018-02-06] MEDS: Tiotropium Bromide 18 MCG/ACT Inhaler INH SCH (08:56)
[2018-02-06] MEDS: Carvedilol 6.25 MG Tablet PO SCH ×2 (08:56→21:28)
[2018-02-06] MEDS: Senna/Docusate Sodium 8.6/50 MG Tablet PO SCH ×2 (08:56→21:28)
[2018-02-06] MEDS: Pantoprazole Inj 40 MG Vial IV.PUSH SCH (08:56)
[2018-02-06] MEDS: Budesonide-Formoterol 160/4.5 MCG 6 GM Inhaler INH SCH ×2 (08:57→21:30)
--- NOTE | 2018-02-06 14:53 | P.PNCA ---
Subjective Interval history: Patient denies any chest pain, pressure, palpitations, dizziness or edema. Patient still complains of shortness of breath with any exertion but does state that she feels a little bit better than yesterday. Medications and Allergies Allergies Allergy/AdvReac Type Severity Reaction Status Date / Time moxifloxacin Allergy Severe Shortness Verified 01/31/18 16:36 of Breath penicillin G Allergy Severe SHORT OF Verified 01/31/18 16:36 BREATH tramadol Allergy Severe SHORT OF Verified 01/31/18 16:36 BREATH Home Medications Medication Instructions Recorded Confirmed Type bisoprolol fumarate 2.5 mg PO DAILY 01/31/18 01/31/18 History fluticasone-salmeterol [Advair 1 inh INHALATION BID 01/31/18 01/31/18 History Diskus] loratadine 10 mg PO DAILY 01/31/18 01/31/18 History pantoprazole 40 mg PO DAILY 01/31/18 01/31/18 History paroxetine HCl 20 mg PO DAILY 01/31/18 01/31/18 History pilocarpine HCl 7.5 mg PO TID 01/31/18 01/31/18 History pramipexole 0.5 mg PO QPM 01/31/18 01/31/18 History tiotropium bromide [Spiriva with 1 cap INHALATION DAILY 01/31/18 01/31/18 History HandiHaler] Active Medications: Active Medications Acetaminophen (Tylenol) 650 mg PO Q6H PRN PRN Reason: PAIN 1-10 AND/OR FEVER >101F Al Hydroxide/Mg Hydroxide (Milk Of [place] Liq) 30 ml PO Q12H PRN PRN Reason: Mild Constipation Aspirin (Aspirin Chew) 81 mg G-TUBE DAILY [facility] Last Admin: 02/06/18 08:56 Dose: 81 mg Bisacodyl (Dulcolax Supp) 10 mg RECTAL DAILY PRN PRN Reason: SEVERE CONSITIPATION Budesonide/Formoterol Fumarate (Symbicort 160/4.5 Mcg Inh) 2 puff INH BID [facility] Last Admin: 02/06/18 08:57 Dose: 2 puff Carvedilol (Coreg) 6.25 mg PO BID [facility] Last Admin: 02/06/18 08:56 Dose: 6.25 mg Heparin Sodium (Porcine) (Heparin Inj) 5,000 units IV.PUSH UNSCH PRN PRN Reason: aPTT < 25 Heparin Sodium/Dextrose (Heparin/D5w 25,000 U/250 Ml) 25,000 unit in 250 mls @ 0 mls/hr IV.CONT TITRATE PRN; Protocol PRN Reason: Per Protocol Last Titration: 02/01/18 19:41 Dose: 0 units/hr, 0 mls/hr Ipratropium [place] (Atrovent Neb) 2.5 mg NEB Q2HR NEB PRN PRN Reason: SHORTNESS OF BREATH/WHEEZING Last Admin: 02/06/18 14:40 Dose: 0.5 mg Lactulose (Lactulose Liq) 30 ml PO DAILY PRN PRN Reason: SEVERE CONSITIPATION Last Admin: 02/05/18 15:13 Dose: 30 ml Loratadine (Claritin) 10 mg PO DAILY [facility] Last Admin: 02/06/18 08:56 Dose: 10 mg Lorazepam (Ativan Inj) 1 mg IV.PUSH Q4H PRN PRN Reason: ANXIETY Last Admin: 02/05/18 06:44 Dose: 1 mg Methylprednisolone Sodium Succinate (Solumedrol Inj) 40 mg IV.PUSH Q6H [facility] Last Admin: 02/06/18 13:06 Dose: 40 mg Miscellaneous (Pill Splitter) 1 each OTHER UNSCH PRN PRN Reason: SEE LABEL COMMENTS Ondansetron HCl (Zofran Inj) 4 mg IV.PUSH Q6H PRN PRN Reason: NAUSEA OR VOMITING Last Admin: 02/04/18 00:44 Dose: 4 mg Pantoprazole Sodium (Protonix Inj) 40 mg IV.PUSH DAILY [facility] Last Admin: 02/06/18 08:56 Dose: 40 mg Paroxetine HCl (Paxil) 20 mg PO DAILY [facility] Last Admin: 02/06/18 08:59 Dose: 20 mg Pilocarpine HCl (Salagen) 7.5 mg PO TID [facility] Last Admin: 02/06/18 13:06 Dose: 7.5 mg Pramipexole Dihydrochloride (Mirapex) 0.5 mg PO HS [facility] Last Admin: 02/05/18 21:35 Dose: 0.5 mg Sacubitril/Valsartan (Entresto 24 Mg/26 Mg Tablet) 1 tab PO BID [facility] Last Admin: 02/06/18 12:46 Dose: 1 tab Senna/Docusate Sodium (Pauline-Colace) 1 tab PO BID [facility] Last Admin: 02/06/18 08:56 Dose: 1 tab Sennosides (Senokot) 17.2 mg PO Q12H PRN PRN Reason: Moderate Constipation Sodium Chloride (Ns Flush) 2 ml IV.FLUSH BID [facility] Last Admin: 02/06/18 08:57 Dose: 2 ml Sodium Chloride (Ns Flush) 2 ml IV.FLUSH PRN PRN PRN Reason: FLUSH AFTER USING IV ACCESS Terbutaline Sulfate (Brethine Inj) 1 mg SQ ONCE PRN PRN Reason: Extravasation Tiotropium [place] (Spiriva 18 Mcg Inh) 18 mcg INH DAILY [facility] Last Admin: 02/06/18 08:56 Dose: 18 mcg Physical Exam Vital signs: Vital Signs 02/05/18 14:50 02/05/18 15:39 02/05/18 16:00 Temperature 97.5 F L 97.1 F L Pulse Rate 104 H 102 H 103 H Respiratory Rate 20 20 Blood Pressure 82/56 L 98/73 L Pulse Oximetry 97 02/05/18 20:00 02/05/18 21:23 02/06/18 01:08 Temperature 97.9 F 98.2 F Pulse Rate 110 H 111 H 104 H Respiratory Rate 18 18 Blood Pressure 102/71 100/72 Pulse Oximetry 99 99 02/06/18 04:00 02/06/18 07:57 02/06/18 08:00 Temperature 97.9 F 98.2 F Pulse Rate 109 H 112 H 108 H Respiratory Rate 18 15 Blood Pressure 105/72 117/86 Pulse Oximetry 93 L 98 96 02/06/18 12:00 02/06/18 14:41 Temperature 97.7 F Pulse Rate 100 H 105 H Respiratory Rate 24 16 Blood Pressure 104/75 Pulse Oximetry 95 Intake & Output 02/05/18 02/06/18 02/06/18 18:59 06:59 18:59 Intake Total 610 / 610 370 / 370 Output Total 250 / 250 100 / 100 Balance 360 / 360 270 / 270 Weight 44.5 kg Intake: IV 50 / 50 Cleocin 600 mg/NS Premix 600 mg 50 / 50 In 50 ml @ 100 mls/hr IV.SIG Q8H [facility] Rx#:[id number] Oral 50 / 50 0 / 0 Tube Feeding 270 / 270 270 / 270 Tube Irrigant 100 / 100 Water Bolus Amount 240 / 240 Output: Urine 250 / 250 100 / 100 Other: # Bowel Movements 0 - Constitutional no acute distress - Routine HEENT Exam Head: Present: normocephalic Eye: Present: PERRL ENT: Present: mucous membranes moist - Routine Neck Exam Present: full ROM - Routine Respiratory Exam Present: decreased breath sounds, wheezes, diminished air movement Comments: expiratory wheezing noted. - Routine Cardiovascular Exam Present: S1, S2, tachycardia. Absent: gallop, rubs - Routine Abdominal Exam Present: normoactive bowel sounds Comments: G-tub present - Routine Extremities Exam Present: full ROM, pulses intact, normal capillary refill. Absent: cyanosis, clubbing, edema - Routine Skin Exam Present: intact - Routine Neurological Exam Present: oriented X3 - Detailed Neurological Exam: Coma Scale Eye Opening: Spontaneous Verbal Response: Oriented Motor Response: Obey commands Pernell Coma Scale Total: 15 - Routine Psychiatric Exam Present: normal affect - Urinary Catheter Management Indwelling Urethral Catheter Cath placed during this visit: yes, but has since been removed by the nurse Reason for continuing: Hourly intake/output Insertion date: 02/01/18 Insertion time: 00:40 Removal date: 02/01/18 Removal time: 07:00 Results 02/06/18 04:39 02/06/18 04:39 CBC 02/05/18 02/06/18 Range/Units 04:38 04:39 WBC 14.3 H 11.6 H (4.0-11.0) th/mm3 RBC 3.36 L 3.32 L (4.00-5.30) mil/mm3 Hgb 11.3 L 11.1 L (11.6-15.3) gm/dL Hct 34.1 L 33.2 L (35.0-46.0) % Plt Count 279 293 (150-450) th/mm3 Comprehensive Metabolic Panel 02/05/18 02/06/18 Range/Units 04:38 04:39 Sodium 139 137 (136-145) meq/L Potassium 4.3 4.6 (3.5-5.1) meq/L Chloride 99 97 L (98-107) meq/L Carbon Dioxide 37.4 H 36.9 H (21.0-32.0) meq/L BUN 48 H 47 H (7-18) mg/dL Creatinine 0.58 0.68 (0.50-1.00) mg/dL Calcium 8.6 8.4 L (8.5-10.1) mg/dL Intake and Output 02/05/18 02/06/18 02/06/18 22:59 06:59 14:59 Intake Total 930 / 930 0 / 0 Output Total 250 / 250 100 / 100 Balance 680 / 680 -100 / -100 Intake: Oral 50 / 50 0 / 0 Tube Feeding 540 / 540 Tube Irrigant 100 / 100 Water Bolus Amount 240 / 240 Output: Urine 250 / 250 100 / 100 Other: # Bowel Movements 0 Weight 44.5 kg Assessment and Plan - Assessment (1) NSTEMI (non-ST elevated myocardial infarction) Code(s): I21.4 - Non-ST elevation (NSTEMI) myocardial infarction Status: Acute (2) COPD (chronic obstructive pulmonary disease) Code(s): J44.9 - Chronic obstructive pulmonary disease, unspecified Status: Acute (3) Hypotension Code(s): I95.9 - Hypotension, unspecified Status: Acute (4) Tongue cancer Code(s): C02.9 - Malignant neoplasm of tongue, unspecified Status: Acute - Plan Still c/o SOB, slow progress. Status post heart cath showing mild nonobstructive coronary artery disease, severe left ventricular systolic dysfunction, consistent with severe nonischemic cardiomyopathy. COPD exacerbation, pulmonary evaluation in progress. Infectious disease evaluation in progress, due to elevated white blood cell count. Patient has a history of tongue cancer and has received chemo and radiation in the past. Oncology evaluation in progress. Continue with current CHF treatment plan and titrate as needed. Overall prognosis remains guarded. We will follow patient during her hospitalization. Patient was seen and evaluated by Dr. Rizzo who participated in care, management and decision-making. - Attending Attestation Patient seen and examined. I reviewed and agree with the evaluation and plan as presented. Continue and titrate tx for CHF. Slow progress. Increase activity.
--- NOTE | 2018-02-06 16:44 | P.PNIM ---
Subjective Interval history: Patient reports she is feeling a little better today. Still gets short of breath with minimal activities. Still requiring 2 L nasal cannula. Physical Exam Vital signs: Vital Signs 02/05/18 20:00 02/05/18 21:23 02/06/18 01:08 Temperature 97.9 F 98.2 F Pulse Rate 110 H 111 H 104 H Respiratory Rate 18 18 Blood Pressure 102/71 100/72 Pulse Oximetry 99 99 02/06/18 04:00 02/06/18 07:57 02/06/18 08:00 Temperature 97.9 F 98.2 F Pulse Rate 109 H 112 H 108 H Respiratory Rate 18 15 Blood Pressure 105/72 117/86 Pulse Oximetry 93 L 98 96 02/06/18 12:00 02/06/18 14:41 Temperature 97.7 F Pulse Rate 100 H 105 H Respiratory Rate 24 16 Blood Pressure 104/75 Pulse Oximetry 95 Intake & Output 02/05/18 02/06/18 02/06/18 18:59 06:59 18:59 Intake Total 610 / 610 370 / 370 Output Total 250 / 250 100 / 100 Balance 360 / 360 270 / 270 Weight 44.5 kg Intake: IV 50 / 50 Cleocin 600 mg/NS Premix 600 mg 50 / 50 In 50 ml @ 100 mls/hr IV.SIG Q8H [facility] Rx#:[id number] Oral 50 / 50 0 / 0 Tube Feeding 270 / 270 270 / 270 Tube Irrigant 100 / 100 Water Bolus Amount 240 / 240 Output: Urine 250 / 250 100 / 100 Other: # Bowel Movements 0 Narrative: GENERAL: Thin appearing female CARDIOVASCULAR: Normal rate and regular rhythm without murmurs, gallops, or rubs. RESPIRATORY: Very poor air movement bilaterally. No wheezing or rhonchi. GASTROINTESTINAL: Abdomen soft, non-tender, non-distended. Normal active bowel sounds. PEG tube in place. MUSCULOSKELETAL: Extremities without cyanosis PSYCH: Appropriate mood and affect. - Urinary Catheter Management Indwelling Urethral Catheter Cath placed during this visit: yes, but has since been removed by the nurse Reason for continuing: Hourly intake/output Insertion date: 02/01/18 Insertion time: 00:40 Removal date: 02/01/18 Removal time: 07:00 Results - Labs CBC & Chem 7: 02/06/18 04:39 02/06/18 04:39 Laboratory Results - last 24 hr 02/06/18 02/06/18 04:39 04:39 WBC 11.6 H RBC 3.32 L Hgb 11.1 L Hct 33.2 L MCV 99.9 MCH 33.6 MCHC 33.6 RDW 14.5 Plt Count 293 MPV 6.9 L Sodium 137 Potassium 4.6 Chloride 97 L Carbon Dioxide 36.9 H Anion Gap 3 L BUN 47 H Creatinine 0.68 Estimated GFR Greater than 89 Random Glucose 127 H Calcium 8.4 L Phosphorus 2.1 L Magnesium 2.2 Microbiology 02/04/18 12:50 Sputum - Expectorated Sputum Gram Stain - Final 02/04/18 12:50 Sputum - Expectorated Sputum Sputum Culture - Preliminary Klebsiella pneumoniae Pseudomonas species Assessment and Plan - Plan 52-year-old female admitted with cardiogenic shock with hypoxia requiring pressors. Has been weaned off of pressors and oxygen. Status post left heart cath with minimally obstructive CAD, likely had minimally elevated troponin secondary to demand ischemia. Acute respiratory distress COPD exacerbation -Partially improving since yesterday with the frequently dose IV steroids, pulmonology following, bronchodilators Patient appear to have significant COPD. May require home oxygen. Continue breathing treatments and steroids. -Obtain home oxygen walk test. Severe systolic dysfunction Status post cardiogenic shock w/ likely nonischemic cardiomyopathy per cards -Continue aspirin, on Coreg and Entresto per cardiology History of tongue cancer -continue tube feeds. Patient can drink sips of water. -pilocarpine for xerostomia leukocytosis -Likely due to steroids. Neuro: Continue home Mirapex. Discharge Planning: Possible DC home in 1-2 days. PT to evaluate
--- NOTE | 2018-02-06 17:29 | P.PNPL ---
Subjective Interval history: 52 YOWf with ca tongue, s/p resection, chemo radiation Breathing better, feels more comfortable Takes po liquids gets anxious which makes breathing worse On NC Physical Exam Vital signs: Vital Signs 02/05/18 20:00 02/05/18 21:23 02/06/18 01:08 Temperature 97.9 F 98.2 F Pulse Rate 110 H 111 H 104 H Respiratory Rate 18 18 Blood Pressure 102/71 100/72 Pulse Oximetry 99 99 02/06/18 04:00 02/06/18 07:57 02/06/18 08:00 Temperature 97.9 F 98.2 F Pulse Rate 109 H 112 H 108 H Respiratory Rate 18 15 Blood Pressure 105/72 117/86 Pulse Oximetry 93 L 98 96 02/06/18 12:00 02/06/18 14:41 02/06/18 16:00 Temperature 97.7 F 98.0 F Pulse Rate 100 H 105 H 106 H Respiratory Rate 24 16 16 Blood Pressure 104/75 107/75 Pulse Oximetry 95 95 Intake & Output 02/05/18 02/06/18 02/06/18 18:59 06:59 18:59 Intake Total 610 / 610 370 / 370 Output Total 250 / 250 100 / 100 Balance 360 / 360 270 / 270 Weight 44.5 kg Intake: IV 50 / 50 Cleocin 600 mg/NS Premix 600 mg 50 / 50 In 50 ml @ 100 mls/hr IV.SIG Q8H [facility] Rx#:[id number] Oral 50 / 50 0 / 0 Tube Feeding 270 / 270 270 / 270 Tube Irrigant 100 / 100 Water Bolus Amount 240 / 240 Output: Urine 250 / 250 100 / 100 Other: # Bowel Movements 0 GENERAL: Thin built frail elderly WF, NAD SKIN: Warm and dry. HEAD: Normocephalic. EYES: No scleral icterus. No injection or drainage. NECK: Supple, trachea midline. No JVD or lymphadenopathy. CARDIOVASCULAR: Regular rate and rhythm without murmurs, gallops, or rubs. RESPIRATORY: Breath sounds equal bilaterally. No accessory muscle use. GASTROINTESTINAL: Abdomen soft, non-tender, nondistended. PEG tube in place MUSCULOSKELETAL: No cyanosis, or edema. BACK: Nontender without obvious deformity. No CVA tenderness. - Urinary Catheter Management Indwelling Urethral Catheter Cath placed during this visit: yes, but has since been removed by the nurse Reason for continuing: Hourly intake/output Insertion date: 02/01/18 Insertion time: 00:40 Removal date: 02/01/18 Removal time: 07:00 Assessment and Plan - Plan IMPRESSION: 1. Respiratory insufficiency. 2. Bronchiectasis. 3. Chronic obstructive pulmonary disease with exacerbation. 4. Leukocytosis. 5. Status post cardiac catheterization. 6. History of cancer of the tongue, status post resection surgery and radiation treatment. PLAN: Aerosol nebs Oral suction Cont Abx Supplement 02 Tube feeding
[2018-02-07] MEDS: MethylPREDNISolone Sod Succinate Inj 40 MG/ML Vial IV.PUSH SCH ×5 (02:22→13:00)
[2018-02-07 07:55] LABS: Hematocrit 34.6 % (35.0-46.0); Hemoglobin 11.8 gm/dL (11.6-15.3); Mean Corpuscular HGB Conc 34.1 % (32.0-36.0); Mean Corpuscular Hemoglobin 33.4 pg (27.0-34.0); Mean Corpuscular Volume 98.1 fL (80.0-100.0); Mean Platelet Volume 7.1 fL (7.0-11.0); Platelet Count 356 th/mm3 (150-450); Red Blood Count 3.53 mil/mm3 (4.00-5.30); Red Cell Distribution Width 14.3 % (11.6-17.2)
[2018-02-07 08:28] LABS: Anion Gap 6 meq/L (5-15); Blood Urea Nitrogen 36 mg/dL (7-18); Calcium 8.7 mg/dL (8.5-10.1); Carbon Dioxide 33.6 meq/L (21.0-32.0); Chloride 96 meq/L (98-107); Glomerular Filtration Rate Greater Than 89 mL/min (>89); Glucose,Random 142 mg/dL (74-106); Magnesium 2.4 mg/dL (1.5-2.5); Phosphorus 3.3 mg/dL (2.5-4.9); Sodium 136 meq/L (136-145)
[2018-02-07 08:44] VITALS: RESP 18
[2018-02-07] MEDS: Loratadine 10 MG Tablet PO SCH (09:15)
[2018-02-07] MEDS: Carvedilol 6.25 MG Tablet PO SCH (09:15)
[2018-02-07] MEDS: Pantoprazole Inj 40 MG Vial IV.PUSH SCH (09:17)
[2018-02-07] MEDS: Senna/Docusate Sodium 8.6/50 MG Tablet PO SCH (09:17)
[2018-02-07] MEDS: Pilocarpine HCl 5 MG Tablet PO SCH ×3 (09:18→19:39)
[2018-02-07] MEDS: Tiotropium Bromide 18 MCG/ACT Inhaler INH SCH (09:19)
[2018-02-07] MEDS: Budesonide-Formoterol 160/4.5 MCG 6 GM Inhaler INH SCH (09:19)
--- NOTE | 2018-02-07 12:57 | P.PNCA ---
Subjective Interval history: Patient resting comfortably in bed in no acute distress. Patient denies any chest pain, pressure, palpitations, dizziness or edema. Patient still complains of mild shortness of breath with any exertion. Medications and Allergies Allergies Allergy/AdvReac Type Severity Reaction Status Date / Time moxifloxacin Allergy Severe Shortness Verified 01/31/18 16:36 of Breath penicillin G Allergy Severe SHORT OF Verified 01/31/18 16:36 BREATH tramadol Allergy Severe SHORT OF Verified 01/31/18 16:36 BREATH Home Medications Medication Instructions Recorded Confirmed Type bisoprolol fumarate 2.5 mg PO DAILY 01/31/18 01/31/18 History fluticasone-salmeterol [Advair 1 inh INHALATION BID 01/31/18 01/31/18 History Diskus] loratadine 10 mg PO DAILY 01/31/18 01/31/18 History pantoprazole 40 mg PO DAILY 01/31/18 01/31/18 History paroxetine HCl 20 mg PO DAILY 01/31/18 01/31/18 History pilocarpine HCl 7.5 mg PO TID 01/31/18 01/31/18 History pramipexole 0.5 mg PO QPM 01/31/18 01/31/18 History tiotropium bromide [Spiriva with 1 cap INHALATION DAILY 01/31/18 01/31/18 History HandiHaler] Active Medications: Active Medications Acetaminophen (Tylenol) 650 mg PO Q6H PRN PRN Reason: PAIN 1-10 AND/OR FEVER >101F Al Hydroxide/Mg Hydroxide (Milk Of [place] Liq) 30 ml PO Q12H PRN PRN Reason: Mild Constipation Aspirin (Aspirin Chew) 81 mg G-TUBE DAILY [facility] Last Admin: 02/07/18 09:15 Dose: 81 mg Bisacodyl (Dulcolax Supp) 10 mg RECTAL DAILY PRN PRN Reason: SEVERE CONSITIPATION Budesonide/Formoterol Fumarate (Symbicort 160/4.5 Mcg Inh) 2 puff INH BID [facility] Last Admin: 02/07/18 09:19 Dose: 2 puff Carvedilol (Coreg) 6.25 mg PO BID [facility] Last Admin: 02/07/18 09:15 Dose: 6.25 mg Heparin Sodium (Porcine) (Heparin Inj) 5,000 units IV.PUSH UNSCH PRN PRN Reason: aPTT < 25 Heparin Sodium/Dextrose (Heparin/D5w 25,000 U/250 Ml) 25,000 unit in 250 mls @ 0 mls/hr IV.CONT TITRATE PRN; Protocol PRN Reason: Per Protocol Last Titration: 02/01/18 19:41 Dose: 0 units/hr, 0 mls/hr Ipratropium [place] (Atrovent Neb) 2.5 mg NEB Q2HR NEB PRN PRN Reason: SHORTNESS OF BREATH/WHEEZING Last Admin: 02/07/18 07:28 Dose: 0.5 mg Lactulose (Lactulose Liq) 30 ml PO DAILY PRN PRN Reason: SEVERE CONSITIPATION Last Admin: 02/05/18 15:13 Dose: 30 ml Loratadine (Claritin) 10 mg PO DAILY [facility] Last Admin: 02/07/18 09:15 Dose: 10 mg Lorazepam (Ativan Inj) 1 mg IV.PUSH Q4H PRN PRN Reason: ANXIETY Last Admin: 02/05/18 06:44 Dose: 1 mg Methylprednisolone Sodium Succinate (Solumedrol Inj) 40 mg IV.PUSH Q6H [facility] Last Admin: 02/07/18 12:35 Dose: 40 mg Miscellaneous (Pill Splitter) 1 each OTHER UNSCH PRN PRN Reason: SEE LABEL COMMENTS Ondansetron HCl (Zofran Inj) 4 mg IV.PUSH Q6H PRN PRN Reason: NAUSEA OR VOMITING Last Admin: 02/04/18 00:44 Dose: 4 mg Pantoprazole Sodium (Protonix Inj) 40 mg IV.PUSH DAILY [facility] Last Admin: 02/07/18 09:17 Dose: 40 mg Paroxetine HCl (Paxil) 20 mg PO DAILY [facility] Last Admin: 02/07/18 09:16 Dose: 20 mg Pilocarpine HCl (Salagen) 7.5 mg PO TID [facility] Last Admin: 02/07/18 09:18 Dose: 7.5 mg Pramipexole Dihydrochloride (Mirapex) 0.5 mg PO HS [facility] Last Admin: 02/07/18 09:15 Dose: 0.5 mg Sacubitril/Valsartan (Entresto 24 Mg/26 Mg Tablet) 1 tab PO BID [facility] Last Admin: 02/07/18 09:15 Dose: 1 tab Senna/Docusate Sodium (Pauline-Colace) 1 tab PO BID [facility] Last Admin: 02/07/18 09:17 Dose: Not Given Sennosides (Senokot) 17.2 mg PO Q12H PRN PRN Reason: Moderate Constipation Sodium Chloride (Ns Flush) 2 ml IV.FLUSH BID [facility] Last Admin: 02/07/18 09:16 Dose: 2 ml Sodium Chloride (Ns Flush) 2 ml IV.FLUSH PRN PRN PRN Reason: FLUSH AFTER USING IV ACCESS Terbutaline Sulfate (Brethine Inj) 1 mg SQ ONCE PRN PRN Reason: Extravasation Tiotropium [place] (Spiriva 18 Mcg Inh) 18 mcg INH DAILY [facility] Last Admin: 02/07/18 09:19 Dose: 18 mcg Physical Exam Vital signs: Vital Signs 02/06/18 14:41 02/06/18 16:00 02/06/18 20:00 Temperature 98.0 F 97.4 F L Pulse Rate 105 H 116 H 106 H Respiratory Rate 16 16 18 Blood Pressure 107/75 111/81 Pulse Oximetry 95 94 L Pulse Oximetry [Exertion on Room Air] Pulse Oximetry [Resting on Room Air] 02/06/18 20:02 02/07/18 00:00 02/07/18 04:00 Temperature 98.1 F Pulse Rate 93 H 99 H Respiratory Rate 18 Blood Pressure 119/87 Pulse Oximetry 98 96 Pulse Oximetry [Exertion on Room Air] Pulse Oximetry [Resting on Room Air] 02/07/18 07:32 02/07/18 08:00 02/07/18 08:19 Temperature 98.3 F Pulse Rate 103 H 99 H Respiratory Rate 16 18 Blood Pressure 128/92 H Pulse Oximetry 97 95 Pulse Oximetry [Exertion on Room Air] 95 Pulse Oximetry [Resting on Room Air] 96 Intake & Output 02/06/18 02/07/18 02/07/18 18:59 06:59 18:59 Intake Total 420 / 420 240 / 240 Output Total 450 / 450 Balance 420 / 420 -210 / -210 Weight 43.4 kg Intake: Oral 420 / 420 240 / 240 Output: Urine 450 / 450 Other: # Voids 5 Date of Last Bowel Movement 02/06/18 # Bowel Movements 0 1 Narrative: GENERAL: This is a well-nourished, well-developed patient, in no apparent distress. Patient speaks in clear complete sentences. Patient is pleasant. HEENT: Head is atraumatic and normocephalic. Neck is supple without lymphadenopathy and trachea is midline. No JVD or carotid bruits. CARDIOVASCULAR: Regular rate and rhythm without murmurs, gallops, or rubs. RESPIRATORY: Inspiratory and expiratory wheezing noted throughout bilaterally. Breath sounds equal bilaterally. No rales, or rhonchi. Chest wall is nontender. No use of accessory muscles. GASTROINTESTINAL: Abdomen is nontender, nondistended. Abdomen soft. No obvious pulsatile mass or bruit. No CVA tenderness. Strong femoral pulses bilaterally. Normal bowel sounds in all quadrants. MUSCULOSKELETAL: Patient is moving upper and lower extremities freely. No calf tenderness or edema, no Homans sign. Strong pulses in upper and lower extremities. NEUROLOGICAL: Patient is alert and oriented. Cranial nerves 2-12 are grossly intact. No focal deficits and speech is clear. SKIN: No rash and turgor is normal. - Urinary Catheter Management Indwelling Urethral Catheter Cath placed during this visit: yes, but has since been removed by the nurse Reason for continuing: Hourly intake/output Insertion date: 02/01/18 Insertion time: 00:40 Removal date: 02/01/18 Removal time: 07:00 Results 02/07/18 06:02 02/07/18 06:02 CBC 02/06/18 02/07/18 Range/Units 04:39 06:02 WBC 11.6 H 10.0 (4.0-11.0) th/mm3 RBC 3.32 L 3.53 L (4.00-5.30) mil/mm3 Hgb 11.1 L 11.8 (11.6-15.3) gm/dL Hct 33.2 L 34.6 L (35.0-46.0) % Plt Count 293 356 (150-450) th/mm3 Comprehensive Metabolic Panel 02/06/18 02/07/18 Range/Units 04:39 06:02 Sodium 137 136 (136-145) meq/L Potassium 4.6 4.0 (3.5-5.1) meq/L Chloride 97 L 96 L (98-107) meq/L Carbon Dioxide 36.9 H 33.6 H (21.0-32.0) meq/L BUN 47 H 36 H (7-18) mg/dL Creatinine 0.68 0.52 (0.50-1.00) mg/dL Calcium 8.4 L 8.7 (8.5-10.1) mg/dL Intake and Output 02/06/18 02/07/18 02/07/18 22:59 06:59 14:59 Intake Total 420 / 420 240 / 240 Output Total 450 / 450 Balance 420 / 420 -210 / -210 Intake: Oral 420 / 420 240 / 240 Output: Urine 450 / 450 Other: # Voids 5 Date of Last Bowel Movement 02/06/18 # Bowel Movements 0 1 Weight 43.4 kg Assessment and Plan - Assessment (1) NSTEMI (non-ST elevated myocardial infarction) Code(s): I21.4 - Non-ST elevation (NSTEMI) myocardial infarction Status: Acute (2) COPD (chronic obstructive pulmonary disease) Code(s): J44.9 - Chronic obstructive pulmonary disease, unspecified Status: Acute (3) Hypotension Code(s): I95.9 - Hypotension, unspecified Status: Acute (4) Tongue cancer Code(s): C02.9 - Malignant neoplasm of tongue, unspecified Status: Acute - Plan Patient's respirations are nonlabored at this time, progress is slow but improving. Patient has a history of tongue cancer and has received chemo and radiation in the past. Oncology evaluation in progress. Pulmonary evaluation in progress. Infectious disease evaluation in progress. Continue with current CHF treatment plan including carvedilol and Entresto. Overall prognosis remains guarded. We will follow patient during her hospitalization. Patient was seen and evaluated by Dr. Rizzo who participated in care, management and decision-making. - Attending Attestation Patient seen and examined. I reviewed and agree with the evaluation and plan as presented. Continue tx for CHF. Increase activity.
[2018-02-07 13:29] VITALS: BP 113/81; PULSE 100; TEMP 98.4; O2SAT 96
--- NOTE | 2018-02-07 14:06 | P.DS ---
Date of admission: 01/31/18 19:22 Primary care physician: Lucy Knight MD Brief History from admission: HPI from the admitting physician: 52-year-old female who presented to [facility] ER on 01/31 with shortness of breath along with cough and chest pain. She has a prior history of tongue cancer status post partial resection in 2007 followed by chemotherapy and radiation at the time. She has a G-tube for tube feedings since then however cannot drink water. She has had previous episodes of aspiration pneumonia. She reports that she was diagnosed to have a low ejection fraction on the stress test previously years ago however is unclear regarding details. Patient was evaluated in the ER and was hypotensive. She had a femoral central line placed and was started on dopamine for pressor support. EKG had some ST-T changes suspicious for ischemia and she did have an elevated troponin. Dr. marte from cardiology was consulted and advised starting heparin GTT. Patient did receive aspirin in the ER. She was admitted to CVICU where I have evaluated her this morning. She is laying in bed on nasal cannula currently. Denies any chest pain or nausea or abdominal pain. She is a little short of breath however does not appear to be in any acute distress. Patient is on a heparin drip currently and dopamine 3 mics per KG per minute. She denies any fevers or chills. Denies any hemoptysis. Denies any nausea vomiting or diarrhea. CT a pulmonary angiogram done last night was negative for PE. Patient update on day of discharge: Patient reports she is feeling much better today. She is ambulating in the room. Weaned off oxygen. DS: Diagnosis - Discharge Diagnosis (1) Systolic CHF Status: Acute (2) Systolic CHF, acute Status: Acute (3) Acute respiratory failure Status: Acute (4) Cardiogenic shock Status: Acute DS: Medications - Discharge Medications Prescriptions: aspirin 81 mg G-TUBE DAILY #30 tab prednisone 10 mg PO DIRECTED #20 tab sacubitril-valsartan [Entresto] 1 tab PO BID #60 tab DS: Summary Hospital Course: 52-year-old female admitted with cardiogenic shock with hypoxia requiring pressors. Has been weaned off of pressors and oxygen. Status post left heart cath with minimally obstructive CAD, likely had minimally elevated troponin secondary to demand ischemia. The patient was admitted to the ICU and have significantly improved. Treatment course detailed below: Acute respiratory distress COPD exacerbation -Patient followed by pulmonology. She was treated with IV steroids, breathing treatments. Her condition significantly improved. She was weaned off oxygen. She is discharged home on a steroid taper. She is advised to follow-up outpatient with pulmonology. Severe systolic dysfunction Status post cardiogenic shock w/ likely nonischemic cardiomyopathy per cards -Continue aspirin, patient was started on Coreg and Entresto per cardiology -She is advised to follow-up outpatient with cardiology. History of tongue cancer -continue tube feeds. Patient can drink sips of water. -pilocarpine for xerostomia . - Time Spent with Patient Total time spent providing and/or coordinating discharge services: Less than 30 minutes Exam Vital signs: Vital Signs 02/06/18 14:41 02/06/18 16:00 02/06/18 20:00 Temperature 98.0 F 97.4 F L Pulse Rate 105 H 116 H 106 H Respiratory Rate 16 16 18 Blood Pressure 107/75 111/81 Pulse Oximetry 95 94 L Pulse Oximetry [Exertion on Room Air] Pulse Oximetry [Resting on Room Air] 02/06/18 20:02 02/07/18 00:00 02/07/18 04:00 Temperature 98.1 F Pulse Rate 93 H 99 H Respiratory Rate 18 Blood Pressure 119/87 Pulse Oximetry 98 96 Pulse Oximetry [Exertion on Room Air] Pulse Oximetry [Resting on Room Air] 02/07/18 07:32 02/07/18 08:00 02/07/18 08:19 Temperature 98.3 F Pulse Rate 103 H 99 H Respiratory Rate 16 18 Blood Pressure 128/92 H Pulse Oximetry 97 95 Pulse Oximetry [Exertion on Room Air] 95 Pulse Oximetry [Resting on Room Air] 96 02/07/18 12:00 Temperature 98.4 F Pulse Rate 100 H Respiratory Rate 18 Blood Pressure 113/81 Pulse Oximetry 96 Pulse Oximetry [Exertion on Room Air] Pulse Oximetry [Resting on Room Air] Intake & Output 02/06/18 02/07/18 02/07/18 18:59 06:59 18:59 Intake Total 420 / 420 240 / 240 360 / 360 Output Total 450 / 450 Balance 420 / 420 -210 / -210 360 / 360 Weight 43.4 kg Intake: Oral 420 / 420 240 / 240 360 / 360 Output: Urine 450 / 450 Other: # Voids 5 1 Date of Last Bowel Movement 02/06/18 # Bowel Movements 0 1 Narrative: GENERAL: Thin appearing female CARDIOVASCULAR: Normal rate and regular rhythm without murmurs, gallops, or rubs. RESPIRATORY: Diminished breath sounds at the bases. No wheezing or rhonchi. GASTROINTESTINAL: Abdomen soft, non-tender, non-distended. Normal active bowel sounds. PEG tube in place. MUSCULOSKELETAL: Extremities without cyanosis PSYCH: Appropriate mood and affect. Results Procedures completed during hospitalization: None Labs on day of discharge: Labs from last 24 hours 02/07/18 02/07/18 06:02 06:02 WBC 10.0 RBC 3.53 L Hgb 11.8 Hct 34.6 L MCV 98.1 MCH 33.4 MCHC 34.1 RDW 14.3 Plt Count 356 MPV 7.1 Sodium 136 Potassium 4.0 Chloride 96 L Carbon Dioxide 33.6 H Anion Gap 6 BUN 36 H Creatinine 0.52 Estimated GFR Greater than 89 Random Glucose 142 H Calcium 8.7 Phosphorus 3.3 D Magnesium 2.4 - Impressions ITS Impressions Chest CTA 01/31/18 19:21 CONCLUSION: 1. Negative for pulmonary embolus. 2. Fairly extensive peribronchial thickening bilaterally with mild bronchiectasis and distal airway disease. Partial atelectasis of the right middle lobe associated with peribronchial thickening of the right middle lobe segmental bronchi. 3. Moderate emphysema. Gastrostomy tube present. Mild coronary calcifications. Chest X-Ray 02/04/18 00:00 CONCLUSION: No acute cardiopulmonary disease identified. Discharge Plan - Discharge Disposition Patient Disposition: Discharge Home - Discharge Condition Condition: Good - Discharge Order Discharge Orders: Discharge Order (Routine); Ordered 02/07/18 Ordered By: Corina Velásquez - Physicians Team Primary Care Provider: Lucy Knight Attending Provider: Corina Velásquez Other Providers: Kennedi Rizzo MD ; [employer] ; Pablo Lazaro MD
== END 2018-02-07 15:54 | disposition home or self-care (01) ==
LOC: PHED 16:27 → PHEDA 19:22 → HCVI 22:00 → HCPC 02-03 12:40 → N04 02-05 15:40
PROVIDERS: ADMIT Family Medicine; ATTEND Family Medicine